=== PATIENT | male | born 1955 | race Caucasian/White ===

== ENCOUNTER 2016-02-22 11:38 | Emergency (ER) | payer OTHER, MEDICARE ==
[2016-02-22] MEDS ORDERED: ONDANSETRON 4MG/2ML VIAL (J2405) As Ordered ONE (13:09)
[2016-02-22 14:21] LABS: ALBUMIN 3.4 GM/DL (3.2-5.2); ALBUMIN/GLOBULIN RATIO 0.85 (1.00-1.93); ALKALINE PHOSPHATASE 103 U/L (45-117); ALT/SGPT 31 U/L (12-78); AMYLASE 122 U/L (25-115); ANION GAP 10 MEQ/L (8-16); AST/SGOT 17 U/L (15-37); BILIRUBIN,DIRECT < 0.1 MG/DL (0.0-0.2); BILIRUBIN,TOTAL 0.5 MG/DL (0.2-1.0); BLOOD UREA NITROGEN 32 MG/DL (7-18); CALCIUM LEVEL 9.2 MG/DL (8.8-10.2); CARBON DIOXIDE LEVEL 26 MEQ/L (21-32); CHLORIDE LEVEL 106 MEQ/L (98-107); CREATININE FOR GFR 2.26 MG/DL (0.70-1.30); GLOMERULAR FILTRATION RATE 31.6 (>49); GLUCOSE, FASTING 101 MG/DL (80-110); POTASSIUM SERUM 4.1 MEQ/L (3.5-5.1); SODIUM LEVEL 142 MEQ/L (136-145); TOTAL PROTEIN 7.4 GM/DL (6.4-8.2)
[2016-02-22 14:39] LABS: BASO % 0.4 % (0.0-1.0); EOS # 0.1 K/mm3 (0.0-0.50); EOS % 2.6 % (0.0-3.0); LARGE UNSTAINED CELL # 0.2 K/mm3 (0.0-0.4); LARGE UNSTAINED CELL % 5.2 % (0.0-4.0); LYMPH # 0.7 K/mm3 (1.5-4.5); MEAN CORPUSCULAR HEMOGLOBIN 28.3 pg (27.0-33.0); MEAN CORPUSCULAR VOLUME 83.2 fl (80.0-96.0); MONO # 0.3 K/mm3 (0.0-0.8); MONO % 8.4 % (0.0-5.0); NEUTROPHILS # 2.5 K/mm3 (1.8-7.7); NEUTROPHILS % 64.4 % (36.0-66.0); PLATELET COUNT, AUTOMATED 128 k/mm3 (150-450); RED CELL DISTRIBUTION WIDTH 12.3 % (11.5-14.5); WHITE BLOOD COUNT 3.9 K/mm3 (4.0-10.0)
--- NOTE | 2016-02-22 16:13 | EDDOCDS ---
Nurse's Notes [facility] Name: Pramod Duque Age: 60 yrs Sex: Male : 1955 Arrival Date: 02/22/2016 Time: 11:38 Bed I2 / M2 Private MD: Shayla Diagnosis: Chronic kidney disease (CKD);Generalized abdominal pain Presentation: 02/21 11:46 Presenting complaint: Patient states: "I've had a lot of gas for the past 4 days, my jc4 blood pressure is running high". Complains of feeling bloated for past few days but is feeling better today. Adult Sepsis Screening: The patient does not have new or worsening altered mentation. Patient's respiratory rate is less than 22. Systolic blood pressure is greater than 100. Patient has a qSOFA score of 0- Negative Sepsis Screen. Suicide/Homicide risk assessment- the patient denies having any suicidal and/or homicidal ideations and does not present with any other emotional, behavioral or mental health complaints. Status: Patient is not a environmental service aide or dependent. Transition of care: patient was not received from another setting of care. 11:46 Acuity: BLACK Level 3 4 11:46 Method Of Arrival: Walkin/Carried/Asstd jc4 Triage Assessment: 11:55 General: Appears in no apparent distress. Pain: Denies pain. Pt Declines HIV testing. jc4 Historical: - Allergies: no known allergies; - Home Meds: 1. atorvastatin 40 mg oral tab 1 tab once daily (Last dose: 02/21/2016) 2. amlodipine 5 mg Oral tab 1 tab nightly (Last dose: 02/21/2016) 3. Myfortic 180 mg oral TbEC 2 tab twice a day (Last dose: 02/22/2016 09:30) 4. Rapamune 1 mg oral tab 2 tabs twice a day (Last dose: 02/22/2016 09:30) 5. Prograf 1 mg Oral cap every 12 hours (Last dose: 02/22/2016 09:30) 6. Zantac 150 mg Oral cap 1 cap 2 times per day (Last dose: 02/22/2016 09:30) 7. atenolol 25 mg Oral tab 1 tab 2 times per day (Last dose: 02/22/2016 09:30) 8. Vitamin D Oral 1,000 unit daily (Last dose: 02/22/2016 09:30) 9. allopurinol 100 mg Oral tab 1.5 tabs once daily (Last dose: 02/22/2016 09:30) - PMHx: Hypertension; Gout; Hypercholesterolemia; Renal Failure w/o Dialysis; - PSHx: Kidney Transplant- Right; Ankle Fracture Repair, Right; Hernia repair; - Social history: Smoking status: Patient states was never smoker of tobacco. No barriers to communication noted, Speaks appropriately for age. - Family history: Not pertinent. - : The pt / caregiver states he / she is not on anticoagulants. Note Dr. Mcguire's office contacted regarding need for updated medication list Note Medication list obtained from Dr. Mcguire's office and reviewed with patient. - Exposure Risk Screening:: None identified. Screenin:37 Screening information is obtained from the patient. Fall risk: No risks identified. dls Assistance ADL's: requires no assistance with activities of daily living. Abuse/DV Screen: The patient / caregiver reports he/she is: not in a situation that causes fear, pain or injury. Nutritional screening: No deficits noted. Advance Directives: Currently, there is no health care proxy. There is no active DNR order. There is no living will. There is no Power of Workforce Analyst. home support is adequate. Assessment: 13:35 General: Appears in no apparent distress, well developed, well nourished, well groomed, dls Behavior is cooperative. Neurological: No deficits noted. EENT: No deficits noted. Cardiovascular: No deficits noted. Respiratory: Airway is patent Respiratory effort is even, unlabored, Respiratory pattern is regular, symmetrical, Breath sounds are clear bilaterally. GI: Reports bloating. : No deficits noted. Derm: No deficits noted. Musculoskeletal: No deficits noted. 14:15 General: Pt resting quietly on stretcher without c/o at bedside.. dls 16:07 General: . dls Vital Signs: 11:41 BP 154 / 96; Pulse 64; Resp 18 S; Temp 98.3(O); Pulse Ox 98% on R/A; Weight 91.63 kg gr2 (R); Height 5 ft. 10 in. (177.80 cm) (R); Pain 3/10; 14:16 BP 130 / 83; Pulse 57; Resp 16; Temp 99.3(TE); Pulse Ox 96% on R/A; Pain 0/10; sew 16:00 BP 144 / 88; Pulse 59; Resp 16; Temp 98.3(TE); Pulse Ox 96% on R/A; Pain 0/10; sew 11:41 Body Mass Index 28.98 (91.63 kg, 177.80 cm) gr2 Vitals: 11:41 Log In Time: February 22, 2016 at 11:41. gr2 13:09 Strep Screen is obtained and tested: Negative, a GATSNEG [facility] and sent. ED Course: 11:41 Patient visited by Jaz Santos. gr2 11:41 Shayla is Private Physician. gr2 11:41 Patient moved to Waiting gr2 11:42 Patient visited by Jaz Santos. gr2 11:42 Patient moved to Pre RCE gr2 11:48 Triage Initiated jc4 11:59 Patient moved to Triage 1 ar3 11:59 Patient moved to Pre RCE ms18 12:13 Patient moved to Triage 1 ar3 12:46 Lupis Flores PA-C is PHCP. ef1 12:46 Kathy Avina MD is Attending Physician. ef1 12:46 Patient visited by Lupis Flores PA-C. ef1 13:03 Patient moved to I2 / M2 jc4 13:04 -Influenza A&B Rapid Antigen - Nose Sent. jc4 13:05 Urinalysis Sent. jc4 13:05 Urine Culture Sent. jc4 13:09 Patient visited by Jigna Pinon PCA. bnb 13:18 Patient visited by Esther Jiménez. sew 13:18 EKG done. (by ED staff). Reviewed by Kathy Avina MD. sew 13:25 [facility] Payment Agreement was scanned into [employer] and attached to record. lg 13:34 Inserted saline lock: 20 gauge in right antecubital area The patient tolerated the dls procedure well. No procedures done that require assistance. 13:37 The patient / caregiver is instructed regarding the plan of care and ED course. Patient dls has correct armband on for positive identification. Placed in gown. Bed in low position. Call light in reach. 13:45 Troponin Sent. sew 13:45 Cardiac Injury Profile Sent. sew 13:45 Amylase Sent. sew 13:45 Basic Metabolic Profile Sent. sew 13:45 CBC with Diff Sent. sew 13:46 Patient visited by Esther Jiménez. sew 13:46 Lipase Sent. sew 13:46 Liver Profile Sent. sew 13:46 Labs drawn. (by ED staff). Sent per order to lab. sew 14:16 Patient visited by Esther Jiménez. sew 14:47 Patient visited by Lupis Flores PA-C. ef1 15:32 Patient visited by Lupis Flores PA-C. ef1 15:49 Patient visited by Lupis Flores PA-C. ef1 15:52 Chau Pitt is Referral Physician. ef1 16:01 Patient visited by Esther Jiménez. sew 16:08 Discontinued IV lock intact, bleeding controlled, pressure dressing applied, No dls redness/swelling at site. Administered Medications: 13:33 Drug: Ondansetron 4 mg [ondansetron HCl 2 mg/mL intravenous solution (2 mL)] Route: dls IVP; Site: right antecubital; Order Results: Lab Order: Amylase; SPEC'M 02/22/16 13:43 Test: AMYLASE; Value: 122; Range: 25-115; Abnormal: Above high normal; Units: U/L; Status: F Lab Order: Basic Metabolic Profile; SPEC'M 02/22/16 13:43 Test: GLUCOSE, FASTING; Value: 101; Range: 80-110; Units: MG/DL; Status: F Test: BLOOD UREA NITROGEN; Value: 32; Range: 7-18; Abnormal: Above high normal; Units: MG/DL; Status: F Test: CREATININE FOR GFR; Value: 2.26; Range: 0.70-1.30; Abnormal: Above high normal; Units: MG/DL; Status: F Test: GLOMERULAR FILTRATION RATE; Value: 31.6; Range: >49; Abnormal: Below low normal; Status: F Test: SODIUM LEVEL; Value: 142; Range: 136-145; Units: MEQ/L; Status: F Test: POTASSIUM SERUM; Value: 4.1; Range: 3.5-5.1; Units: MEQ/L; Status: F Test: CHLORIDE LEVEL; Value: 106; Range: 98-107; Units: MEQ/L; Status: F Test: CARBON DIOXIDE LEVEL; Value: 26; Range: 21-32; Units: MEQ/L; Status: F Test: ANION GAP; Value: 10; Range: 8-16; Units: MEQ/L; Status: F Test: CALCIUM LEVEL; Value: 9.2; Range: 8.8-10.2; Units: MG/DL; Status: F Test Note: ; Units are mL/min/1.73 m2 Chronic Kidney Disease Staging per NKF: Stage I & II GFR >=60 Normal to Mildly Decreased Stage III GFR 30-59 Moderately Decreased Stage IV GFR 15-29 Severely Decreased Stage V GFR <15 Very Little GFR Left ESRD GFR <15 on LIQUOR TESTER Lab Order: CBC with Diff; SPEC'M 02/22/16 13:43 Test: WHITE BLOOD COUNT; Value: 3.9; Range: 4.0-10.0; Abnormal: Below low normal; Units: K/mm3; Status: F Test: RED BLOOD COUNT; Value: 4.44; Range: 4.30-6.10; Units: M/mm3; Status: F Test: HEMOGLOBIN; Value: 12.6; Range: 14.0-18.0; Abnormal: Below low normal; Units: g/dl; Status: F Test: HEMATOCRIT; Value: 36.9; Range: 42.0-52.0; Abnormal: Below low normal; Units: %; Status: F Test: MEAN CORPUSCULAR VOLUME; Value: 83.2; Range: 80.0-96.0; Units: fl; Status: F Test: MEAN CORPUSCULAR HEMOGLOBIN; Value: 28.3; Range: 27.0-33.0; Units: pg; Status: F Test: MEAN CORPUSCULAR HGB CONC; Value: 34.0; Range: 32.0-36.5; Units: g/dl; Status: F Test: RED CELL DISTRIBUTION WIDTH; Value: 12.3; Range: 11.5-14.5; Units: %; Status: F Test: PLATELET COUNT, AUTOMATED; Value: 128; Range: 150-450; Abnormal: Below low normal; Units: k/mm3; Status: F Test: NEUTROPHILS %; Value: 64.4; Range: 36.0-66.0; Units: %; Status: F Test: LYMPH %; Value: 19.0; Range: 24.0-44.0; Abnormal: Below low normal; Units: %; Status: F Test: MONO %; Value: 8.4; Range: 0.0-5.0; Abnormal: Above high normal; Units: %; Status: F Test: EOS %; Value: 2.6; Range: 0.0-3.0; Units: %; Status: F Test: BASO %; Value: 0.4; Range: 0.0-1.0; Units: %; Status: F Test: LARGE UNSTAINED CELL %; Value: 5.2; Range: 0.0-4.0; Abnormal: Above high normal; Units: %; Status: F Test: NEUTROPHILS #; Value: 2.5; Range: 1.8-7.7; Units: K/mm3; Status: F Test: LYMPH #; Value: 0.7; Range: 1.5-4.5; Abnormal: Below low normal; Units: K/mm3; Status: F Test: MONO #; Value: 0.3; Range: 0.0-0.8; Units: K/mm3; Status: F Test: EOS #; Value: 0.1; Range: 0.0-0.50; Units: K/mm3; Status: F Test: BASO #; Value: 0.0; Range: 0.0-0.2; Units: K/mm3; Status: F Test: LARGE UNSTAINED CELL #; Value: 0.2; Range: 0.0-0.4; Units: K/mm3; Status: F Lab Order: Lipase; SPEC'M 02/22/16 13:43 Test: LIPASE; Value: 164; Range: 73-393; Units: U/L; Status: F Lab Order: Liver Profile; SPEC'M 02/22/16 13:43 Test: AST/SGOT; Value: 17; Range: 15-37; Units: U/L; Status: F Test: ALT/SGPT; Value: 31; Range: 12-78; Units: U/L; Status: F Test: ALKALINE PHOSPHATASE; Value: 103; Range: 45-117; Units: U/L; Status: F Test: BILIRUBIN,TOTAL; Value: 0.5; Range: 0.2-1.0; Units: MG/DL; Status: F Test: BILIRUBIN,DIRECT; Value: < 0.1; Range: 0.0-0.2; Units: MG/DL; Status: F Test: TOTAL PROTEIN; Value: 7.4; Range: 6.4-8.2; Units: GM/DL; Status: F Test: ALBUMIN; Value: 3.4; Range: 3.2-5.2; Units: GM/DL; Status: F Test: ALBUMIN/GLOBULIN RATIO; Value: 0.85; Range: 1.00-1.93; Abnormal: Below low normal; Status: F Lab Order: Urinalysis; SPEC'M 02/22/16 13:00 Test: APPEARANCE, URINE; Value: CLEAR; Range: CLEAR; Status: F Test: COLOR, URINE; Value: YELLOW; Range: YELLOW; Status: F Test: PH,URINE; Value: 5.0; Range: 5.0-9.0; Units: UNITS; Status: F Test: SPECIFIC GRAVITY URINE AUTO; Value: 1.012; Range: 1.002-1.035; Status: F Test: PROTEIN, URINE AUTO; Value: NEGATIVE; Range: NEGATIVE; Units: mg/dL; Status: F Test: GLUCOSE, URINE (UA) AUTO; Value: NEGATIVE; Range: NEGATIVE; Units: mg/dL; Status: F Test: KETONE, URINE AUTO; Value: NEGATIVE; Range: NEGATIVE; Units: mg/dL; Status: F Test: UROBILINOGEN, URINE AUTO; Value: 0.2; Range: 0.0-2.0; Units: mg/dL; Status: F Test: BILIRUBIN, URINE AUTO; Value: NEGATIVE; Range: NEGATIVE; Status: F Test: NITRITE, URINE AUTO; Value: NEGATIVE; Range: NEGATIVE; Status: F Test: LEUKOCYTE ESTERASE, URINE AUTO; Value: NEGATIVE; Range: NEGATIVE; Status: F Test: BLOOD, URINE BLOOD; Value: 1+; Range: NEGATIVE; Abnormal: Above high normal; Status: F Test: WBC, URINE AUTO; Value: 0; Range: 0-3; Units: /HPF; Status: F Test: RBC, URINE AUTO; Value: 0; Range: 0-3; Units: /HPF; Status: F Test: BACTERIA, URINE AUTO; Value: NEGATIVE; Range: NEGATIVE; Status: F Test: SQUAMOUS EPITHELIAL CELL UR AU; Value: 0; Range: 0-6; Units: /HPF; Status: F Test: MUCUS, URINE; Value: SMALL; Range: NEGATIVE; Status: F Test: HYALINE CAST, URINE AUTO; Value: 0; Range: 0-1; Units: /LPF; Status: F Lab Order: -Influenza A&B Rapid Antigen - Nose; SPEC'M 02/22/16 13:00 Test: INFLUENZA A RAPID SCR by ICA; Value: INFLUENZA A RESULTS NEGATIVE; Status: F Test: INFLUENZA A RAPID SCR by ICA; Value: Comments:; Status: F Test: INFLUENZA B RAPID SCR by ICA; Value: INFLUENZA B RESULTS NEGATIVE; Status: F Test Note: ; The Influenza test is a direct rapid immunoassay for the qualitative detection of Influenza viral antigen. Cell culture (Viral Culture) testing should be considered to confirm NEGATIVE results and to assist in detecting other viruses that can provide similar clinical symptoms. Please contact the lab within 24 hours ([phone]) if confirmatory testing is desired. Lab Order: Cardiac Injury Profile; SPEC'M 02/22/16 13:43 Test: CPK CREATINE PHOSPHOKINASE; Value: 88; Range: 39-308; Units: U/L; Status: F Test: CK-MB VALUE MASS; Value: 1.0; Range: 0.0-3.6; Units: NG/ML; Status: F Test: MB/CK RELATIVE INDEX; Value: 1.13; Range: < OR =4; Status: F Test Note: ; DIAGNOSIS CRITERIA MMB ng/ml Relative Index (RI) NON-AMI < or = 5 N/A [place] > 5 < or = 4 AMI > 5 > 4 Lab Order: Troponin; SPEC'M 02/22/16 13:43 Test: TROPONIN I; Value: < 0.02; Range: < 0.10; Units: NG/ML; Status: F Test Note: ; Troponin I Reference Interval for [employer] LOCI: 99th Percentile= 0.00-0.045 ng/ml Risk Stratification: <= 0.10 ng/ml Decreased Risk for Adverse Clinical Events. 0.10-1.50 ng/ml Increased Risk for Adverse Clinical Events. Evaluation of additional criterion and/or repeat testing in 2-6 hours is suggested to rule out myocardial damage. >= 1.50 ng/ml Indicative of Myocardial Injury. Outcome: 15:52 Discharge ordered by Provider. ef1 16:09 Discharge Assessment: Patient awake, alert and oriented x 3. No cognitive and/or dls functional deficits noted. Patient verbalized understanding of disposition instructions. patient administered narcotics - no. The following High Risk Discharge criteria are identified: None. Discharged to home ambulatory, with significant other. Condition: stable. Discharge instructions given to patient, Instructed on discharge instructions, follow up and referral plans. Demonstrated understanding of instructions, Pt was receptive of discharge instructions/ teaching. 16:10 No special radiology studies were completed. Property sent home with patient. dls 16:12 Patient left the ED. dls Signatures: Haven Stubbs, RN RN dls Kimberlee Horn, Reg Reg lg Lupis Flores, PA-C PA-C ef1 Sharron Tan, SECURITY DIRECTOR SECURITY DIRECTOR ar3 Lanny Florez, RN RN jc4 Esther Jiménez Gainslee gr2 Porsche Forrest RN RN [id number] Jigna Pinon, SECURITY DIRECTOR SECURITY DIRECTOR bnb MTDD
--- NOTE | 2016-02-22 16:14 | EDDOCDS ---
Physician Documentation [facility] Name: Pramod Duque Age: 60 yrs Sex: Male : 1955 Arrival Date: 02/22/2016 Time: 11:38 Bed I2 / M2 Private MD: Shayla Disposition: 02/22/16 15:52 Discharged to Home/Self Care. Impression: Chronic kidney disease (CKD), Generalized abdominal pain. - Condition is Stable. - Discharge Instructions: Abdominal Pain, Adult, Chronic Kidney Disease. - Prescriptions for Zofran 4 mg Oral Tablet - take 1 tablet by ORAL route 4 times per day As needed; 10 tablet. - Medication Reconciliation, Local Pharmacy Hours form. - Follow up: Chau Pitt; When: 1 - 2 days; Reason: Recheck today's complaints, Continuance of care. Follow up: Emergency Department; Reason: Worsening of conditions. - Problem is new. - Symptoms have improved. Historical: - Allergies: no known allergies; - Home Meds: 1. atorvastatin 40 mg oral tab 1 tab once daily (Last dose: 02/21/2016) 2. amlodipine 5 mg Oral tab 1 tab nightly (Last dose: 02/21/2016) 3. Myfortic 180 mg oral TbEC 2 tab twice a day (Last dose: 02/22/2016 09:30) 4. Rapamune 1 mg oral tab 2 tabs twice a day (Last dose: 02/22/2016 09:30) 5. Prograf 1 mg Oral cap every 12 hours (Last dose: 02/22/2016 09:30) 6. Zantac 150 mg Oral cap 1 cap 2 times per day (Last dose: 02/22/2016 09:30) 7. atenolol 25 mg Oral tab 1 tab 2 times per day (Last dose: 02/22/2016 09:30) 8. Vitamin D Oral 1,000 unit daily (Last dose: 02/22/2016 09:30) 9. allopurinol 100 mg Oral tab 1.5 tabs once daily (Last dose: 02/22/2016 09:30) - PMHx: Hypertension; Gout; Hypercholesterolemia; Renal Failure w/o Dialysis; - PSHx: Kidney Transplant- Right; Ankle Fracture Repair, Right; Hernia repair; - Social history: Smoking status: Patient states was never smoker of tobacco. No barriers to communication noted, Speaks appropriately for age. - Family history: Not pertinent. - : The pt / caregiver states he / she is not on anticoagulants. Note Dr. Mcguire's office contacted regarding need for updated medication list Note Medication list obtained from Dr. Mcguire's office and reviewed with patient. - Exposure Risk Screening:: None identified. Vital Signs: 02/21 11:41 BP 154 / 96; Pulse 64; Resp 18 S; Temp 98.3(O); Pulse Ox 98% on R/A; Weight 91.63 kg / gr2 202.01 lbs (R); Height 5 ft. 10 in. (177.80 cm) (R); Pain 3/10; 14:16 BP 130 / 83; Pulse 57; Resp 16; Temp 99.3(TE); Pulse Ox 96% on R/A; Pain 0/10; sew 16:00 BP 144 / 88; Pulse 59; Resp 16; Temp 98.3(TE); Pulse Ox 96% on R/A; Pain 0/10; sew 11:41 Body Mass Index 28.98 (91.63 kg, 177.80 cm) gr2 MDM: 12:53 IV Saline Lock ordered. ef1 12:53 Undress patient appropriately for examination ordered. ef1 12:53 Obtain sample by nasopharyngeal swab ordered. ef1 12:53 Ondansetron 4 mg IVP once ordered. ef1 12:54 Strep Screen, Nursing ordered. ef1 12:54 ECG WITH READING ER PHYS+CARDIAG ordered. EDMS 12:55 NOTHING BY MOUTH+DIET ordered. EDMS 12:55 Amylase Ordered. EDMS 12:55 Basic Metabolic Profile Ordered. EDMS 12:55 CBC with Diff Ordered. EDMS 12:55 Lipase Ordered. EDMS 12:55 Liver Profile Ordered. EDMS 12:55 Urinalysis Ordered. EDMS 12:55 Cardiac Injury Profile Ordered. EDMS 12:55 Troponin Ordered. EDMS 12:55 Urine Culture Ordered. EDMS 12:55 -Influenza A&B Rapid Antigen - Nose Ordered. EDMS 13:05 Financial registration complete. lg 13:22 GATS (NEGATIVE STREP SCREEN) Ordered. EDMS 13:25 [facility] Payment Agreement was scanned into [employer] and attached to record. lg 15:33 Amylase Reviewed. ef1 15:33 Basic Metabolic Profile Reviewed. ef1 15:33 CBC with Diff Reviewed. ef1 15:33 Liver Profile Reviewed. ef1 15:33 Urinalysis Reviewed. ef1 15:33 Lipase Reviewed. ef1 15:33 -Influenza A&B Rapid Antigen - Nose Reviewed. ef1 15:33 Cardiac Injury Profile Reviewed. ef1 15:33 Troponin Reviewed. ef1 Administered Medications: 13:33 Drug: Ondansetron 4 mg [ondansetron HCl 2 mg/mL intravenous solution (2 mL)] Route: dls IVP; Site: right antecubital; Signatures: Dispatcher [employer] EDMS Haven Stubbs RN RN dls Kimberlee Horn, Reg Reg lg Lupis Flores PA-C PAEvan ef1 Lanny Florez RN RN jc4 The chart was reviewed and I authenticate all verbal orders and agree with the evaluation and treatment provided.Attachments: 13:25 [facility] Payment Agreement lg MTDD
--- NOTE | 2016-02-23 08:05 | ECGEPIP ---
Stationary ECG Study [facility] - ED Test Date: 2016-02-22 Pat Name: ARRON TALBERT Department: Room: - Gender: M Visual Training Aide: maycol : 1955 Requested By: Lupis Flores PA-C Order Number: [id number] Reading MD: Esther Payne Measurements Intervals [place] Rate: 62 P: 62 [place]: 178 QRS: -43 QRSD: 118 T: 32 QT: 403 QTc: 411 Interpretive Statements SINUS RHYTHM WITH SINUS ARRHYTHMIA MARKED LEFT AXIS DEVIATION MODERATE INTRAVENTRICULAR CONDUCTION DELAY NO PRIOR FOR COMPARISON Electronically Signed On 02-23-2016 8:05:10 EST by Esther Payne
--- NOTE | 2016-02-24 17:13 | EDDOCDS ---
Physician Documentation [facility] Name: Pramod Duque Age: 60 yrs Sex: Male : 1955 Arrival Date: 02/22/2016 Time: 11:38 Bed I2 / M2 Private MD: Shayla Disposition: 02/22/16 15:52 Discharged to Home/Self Care. Impression: Chronic kidney disease (CKD), Generalized abdominal pain. - Condition is Stable. - Discharge Instructions: Abdominal Pain, Adult, Chronic Kidney Disease. - Prescriptions for Zofran 4 mg Oral Tablet - take 1 tablet by ORAL route 4 times per day As needed; 10 tablet. - Medication Reconciliation, Local Pharmacy Hours form. - Follow up: Chau Pitt; When: 1 - 2 days; Reason: Recheck today's complaints, Continuance of care. Follow up: Emergency Department; Reason: Worsening of conditions. - Problem is new. - Symptoms have improved. Historical: - Allergies: no known allergies; - Home Meds: 1. atorvastatin 40 mg oral tab 1 tab once daily (Last dose: 02/21/2016) 2. amlodipine 5 mg Oral tab 1 tab nightly (Last dose: 02/21/2016) 3. Myfortic 180 mg oral TbEC 2 tab twice a day (Last dose: 02/22/2016 09:30) 4. Rapamune 1 mg oral tab 2 tabs twice a day (Last dose: 02/22/2016 09:30) 5. Prograf 1 mg Oral cap every 12 hours (Last dose: 02/22/2016 09:30) 6. Zantac 150 mg Oral cap 1 cap 2 times per day (Last dose: 02/22/2016 09:30) 7. atenolol 25 mg Oral tab 1 tab 2 times per day (Last dose: 02/22/2016 09:30) 8. Vitamin D Oral 1,000 unit daily (Last dose: 02/22/2016 09:30) 9. allopurinol 100 mg Oral tab 1.5 tabs once daily (Last dose: 02/22/2016 09:30) - PMHx: Hypertension; Gout; Hypercholesterolemia; Renal Failure w/o Dialysis; - PSHx: Kidney Transplant- Right; Ankle Fracture Repair, Right; Hernia repair; - Social history: Smoking status: Patient states was never smoker of tobacco. No barriers to communication noted, Speaks appropriately for age. - Family history: Not pertinent. - : The pt / caregiver states he / she is not on anticoagulants. Note Dr. Mcguire's office contacted regarding need for updated medication list Note Medication list obtained from Dr. Mcguire's office and reviewed with patient. - Exposure Risk Screening:: None identified. Vital Signs: 02/21 11:41 BP 154 / 96; Pulse 64; Resp 18 S; Temp 98.3(O); Pulse Ox 98% on R/A; Weight 91.63 kg / gr2 202.01 lbs (R); Height 5 ft. 10 in. (177.80 cm) (R); Pain 3/10; 14:16 BP 130 / 83; Pulse 57; Resp 16; Temp 99.3(TE); Pulse Ox 96% on R/A; Pain 0/10; sew 16:00 BP 144 / 88; Pulse 59; Resp 16; Temp 98.3(TE); Pulse Ox 96% on R/A; Pain 0/10; sew 11:41 Body Mass Index 28.98 (91.63 kg, 177.80 cm) gr2 MDM: 12:53 IV Saline Lock ordered. ef1 12:53 Undress patient appropriately for examination ordered. ef1 12:53 Obtain sample by nasopharyngeal swab ordered. ef1 12:53 Ondansetron 4 mg IVP once ordered. ef1 12:54 Strep Screen, Nursing ordered. ef1 12:54 ECG WITH READING ER PHYS+CARDIAG ordered. EDMS 12:55 NOTHING BY MOUTH+DIET ordered. EDMS 12:55 Amylase Ordered. EDMS 12:55 Basic Metabolic Profile Ordered. EDMS 12:55 CBC with Diff Ordered. EDMS 12:55 Lipase Ordered. EDMS 12:55 Liver Profile Ordered. EDMS 12:55 Urinalysis Ordered. EDMS 12:55 Cardiac Injury Profile Ordered. EDMS 12:55 Troponin Ordered. EDMS 12:55 Urine Culture Ordered. EDMS 12:55 -Influenza A&B Rapid Antigen - Nose Ordered. EDMS 13:05 Financial registration complete. lg 13:22 GATS (NEGATIVE STREP SCREEN) Ordered. EDMS 13:25 [facility] Payment Agreement was scanned into [employer] and attached to record. lg 15:33 Amylase Reviewed. ef1 15:33 Basic Metabolic Profile Reviewed. ef1 15:33 CBC with Diff Reviewed. ef1 15:33 Liver Profile Reviewed. ef1 15:33 Urinalysis Reviewed. ef1 15:33 Lipase Reviewed. ef1 15:33 -Influenza A&B Rapid Antigen - Nose Reviewed. ef1 15:33 Cardiac Injury Profile Reviewed. ef1 15:33 Troponin Reviewed. ef1 02/22 09:10 T-Sheet-- Draft Copy was scanned into [employer] and attached to record. gb 09:10 ECG/EKG was scanned into [employer] and attached to record. gb Administered Medications: 02/21 13:33 Drug: Ondansetron 4 mg [ondansetron HCl 2 mg/mL intravenous solution (2 mL)] Route: dls IVP; Site: right antecubital; Signatures: Dispatcher [employer] EDHaven Rudd RN RN dls Farnaz Leon, Reg Reg gb Kimberlee Horn, Reg Reg lg Lupis Flores, PATitiC PATitiC ef1 Lanny Florez RN RN jc4 The chart was reviewed and I authenticate all verbal orders and agree with the evaluation and treatment provided.Attachments: 13:25 [facility] Payment Agreement lg 02/22 09:10 T-Sheet-- Draft Copy gb 09:10 ECG/EKG gb Chart Complete MTDD
--- NOTE | 2016-02-24 17:13 | EDDOCDS ---
Physician Documentation [facility] Name: Pramod Duque Age: 60 yrs Sex: Male : 1955 Arrival Date: 02/22/2016 Time: 11:38 Bed I2 / M2 Private MD: Shayla Disposition: 02/22/16 15:52 Discharged to Home/Self Care. Impression: Chronic kidney disease (CKD), Generalized abdominal pain. - Condition is Stable. - Discharge Instructions: Abdominal Pain, Adult, Chronic Kidney Disease. - Prescriptions for Zofran 4 mg Oral Tablet - take 1 tablet by ORAL route 4 times per day As needed; 10 tablet. - Medication Reconciliation, Local Pharmacy Hours form. - Follow up: Chau Pitt; When: 1 - 2 days; Reason: Recheck today's complaints, Continuance of care. Follow up: Emergency Department; Reason: Worsening of conditions. - Problem is new. - Symptoms have improved. Historical: - Allergies: no known allergies; - Home Meds: 1. atorvastatin 40 mg oral tab 1 tab once daily (Last dose: 02/21/2016) 2. amlodipine 5 mg Oral tab 1 tab nightly (Last dose: 02/21/2016) 3. Myfortic 180 mg oral TbEC 2 tab twice a day (Last dose: 02/22/2016 09:30) 4. Rapamune 1 mg oral tab 2 tabs twice a day (Last dose: 02/22/2016 09:30) 5. Prograf 1 mg Oral cap every 12 hours (Last dose: 02/22/2016 09:30) 6. Zantac 150 mg Oral cap 1 cap 2 times per day (Last dose: 02/22/2016 09:30) 7. atenolol 25 mg Oral tab 1 tab 2 times per day (Last dose: 02/22/2016 09:30) 8. Vitamin D Oral 1,000 unit daily (Last dose: 02/22/2016 09:30) 9. allopurinol 100 mg Oral tab 1.5 tabs once daily (Last dose: 02/22/2016 09:30) - PMHx: Hypertension; Gout; Hypercholesterolemia; Renal Failure w/o Dialysis; - PSHx: Kidney Transplant- Right; Ankle Fracture Repair, Right; Hernia repair; - Social history: Smoking status: Patient states was never smoker of tobacco. No barriers to communication noted, Speaks appropriately for age. - Family history: Not pertinent. - : The pt / caregiver states he / she is not on anticoagulants. Note Dr. Mcguire's office contacted regarding need for updated medication list Note Medication list obtained from Dr. Mcguire's office and reviewed with patient. - Exposure Risk Screening:: None identified. Vital Signs: 02/21 11:41 BP 154 / 96; Pulse 64; Resp 18 S; Temp 98.3(O); Pulse Ox 98% on R/A; Weight 91.63 kg / gr2 202.01 lbs (R); Height 5 ft. 10 in. (177.80 cm) (R); Pain 3/10; 14:16 BP 130 / 83; Pulse 57; Resp 16; Temp 99.3(TE); Pulse Ox 96% on R/A; Pain 0/10; sew 16:00 BP 144 / 88; Pulse 59; Resp 16; Temp 98.3(TE); Pulse Ox 96% on R/A; Pain 0/10; sew 11:41 Body Mass Index 28.98 (91.63 kg, 177.80 cm) gr2 MDM: 12:53 IV Saline Lock ordered. ef1 12:53 Undress patient appropriately for examination ordered. ef1 12:53 Obtain sample by nasopharyngeal swab ordered. ef1 12:53 Ondansetron 4 mg IVP once ordered. ef1 12:54 Strep Screen, Nursing ordered. ef1 12:54 ECG WITH READING ER PHYS+CARDIAG ordered. EDMS 12:55 NOTHING BY MOUTH+DIET ordered. EDMS 12:55 Amylase Ordered. EDMS 12:55 Basic Metabolic Profile Ordered. EDMS 12:55 CBC with Diff Ordered. EDMS 12:55 Lipase Ordered. EDMS 12:55 Liver Profile Ordered. EDMS 12:55 Urinalysis Ordered. EDMS 12:55 Cardiac Injury Profile Ordered. EDMS 12:55 Troponin Ordered. EDMS 12:55 Urine Culture Ordered. EDMS 12:55 -Influenza A&B Rapid Antigen - Nose Ordered. EDMS 13:05 Financial registration complete. lg 13:22 GATS (NEGATIVE STREP SCREEN) Ordered. EDMS 13:25 [facility] Payment Agreement was scanned into [employer] and attached to record. lg 15:33 Amylase Reviewed. ef1 15:33 Basic Metabolic Profile Reviewed. ef1 15:33 CBC with Diff Reviewed. ef1 15:33 Liver Profile Reviewed. ef1 15:33 Urinalysis Reviewed. ef1 15:33 Lipase Reviewed. ef1 15:33 -Influenza A&B Rapid Antigen - Nose Reviewed. ef1 15:33 Cardiac Injury Profile Reviewed. ef1 15:33 Troponin Reviewed. ef1 02/22 09:10 T-Sheet-- Draft Copy was scanned into [employer] and attached to record. gb 09:10 ECG/EKG was scanned into [employer] and attached to record. gb Administered Medications: 02/21 13:33 Drug: Ondansetron 4 mg [ondansetron HCl 2 mg/mL intravenous solution (2 mL)] Route: dls IVP; Site: right antecubital; Signatures: Dispatcher [employer] EDHaven Rudd RN RN dls Farnaz Loen, Reg Reg gb Kimberlee Horn, Reg Reg lg Lupis Flores, PATitiC PATitiC ef1 Lanny Florez RN RN jc4 The chart was reviewed and I authenticate all verbal orders and agree with the evaluation and treatment provided.Attachments: 13:25 [facility] Payment Agreement lg 02/22 09:10 T-Sheet-- Draft Copy gb 09:10 ECG/EKG gb Chart Complete MTDD
--- NOTE | 2016-02-24 17:13 | EDDOCDS ---
Nurse's Notes [facility] Name: Pramod Talbert Age: 60 yrs Sex: Male : 1955 Arrival Date: 02/22/2016 Time: 11:38 Bed I2 / M2 Private MD: Shayla Diagnosis: Chronic kidney disease (CKD);Generalized abdominal pain Presentation: 02/21 11:46 Presenting complaint: Patient states: "I've had a lot of gas for the past 4 days, my jc4 blood pressure is running high". Complains of feeling bloated for past few days but is feeling better today. Adult Sepsis Screening: The patient does not have new or worsening altered mentation. Patient's respiratory rate is less than 22. Systolic blood pressure is greater than 100. Patient has a qSOFA score of 0- Negative Sepsis Screen. Suicide/Homicide risk assessment- the patient denies having any suicidal and/or homicidal ideations and does not present with any other emotional, behavioral or mental health complaints. Status: Patient is not a housetrailer servicer or dependent. Transition of care: patient was not received from another setting of care. 11:46 Acuity: BLACK Level 3 4 11:46 Method Of Arrival: Walkin/Carried/Asstd jc4 Triage Assessment: 11:55 General: Appears in no apparent distress. Pain: Denies pain. Pt Declines HIV testing. jc4 Historical: - Allergies: no known allergies; - Home Meds: 1. atorvastatin 40 mg oral tab 1 tab once daily (Last dose: 02/21/2016) 2. amlodipine 5 mg Oral tab 1 tab nightly (Last dose: 02/21/2016) 3. Myfortic 180 mg oral TbEC 2 tab twice a day (Last dose: 02/22/2016 09:30) 4. Rapamune 1 mg oral tab 2 tabs twice a day (Last dose: 02/22/2016 09:30) 5. Prograf 1 mg Oral cap every 12 hours (Last dose: 02/22/2016 09:30) 6. Zantac 150 mg Oral cap 1 cap 2 times per day (Last dose: 02/22/2016 09:30) 7. atenolol 25 mg Oral tab 1 tab 2 times per day (Last dose: 02/22/2016 09:30) 8. Vitamin D Oral 1,000 unit daily (Last dose: 02/22/2016 09:30) 9. allopurinol 100 mg Oral tab 1.5 tabs once daily (Last dose: 02/22/2016 09:30) - PMHx: Hypertension; Gout; Hypercholesterolemia; Renal Failure w/o Dialysis; - PSHx: Kidney Transplant- Right; Ankle Fracture Repair, Right; Hernia repair; - Social history: Smoking status: Patient states was never smoker of tobacco. No barriers to communication noted, Speaks appropriately for age. - Family history: Not pertinent. - : The pt / caregiver states he / she is not on anticoagulants. Note Dr. Mcguire's office contacted regarding need for updated medication list Note Medication list obtained from Dr. Mcguire's office and reviewed with patient. - Exposure Risk Screening:: None identified. Screenin:37 Screening information is obtained from the patient. Fall risk: No risks identified. dls Assistance ADL's: requires no assistance with activities of daily living. Abuse/DV Screen: The patient / caregiver reports he/she is: not in a situation that causes fear, pain or injury. Nutritional screening: No deficits noted. Advance Directives: Currently, there is no health care proxy. There is no active DNR order. There is no living will. There is no Power of Product Test Specialist. home support is adequate. Assessment: 13:35 General: Appears in no apparent distress, well developed, well nourished, well groomed, dls Behavior is cooperative. Neurological: No deficits noted. EENT: No deficits noted. Cardiovascular: No deficits noted. Respiratory: Airway is patent Respiratory effort is even, unlabored, Respiratory pattern is regular, symmetrical, Breath sounds are clear bilaterally. GI: Reports bloating. : No deficits noted. Derm: No deficits noted. Musculoskeletal: No deficits noted. 14:15 General: Pt resting quietly on stretcher without c/o at bedside.. dls 16:07 General: . dls Vital Signs: 11:41 BP 154 / 96; Pulse 64; Resp 18 S; Temp 98.3(O); Pulse Ox 98% on R/A; Weight 91.63 kg gr2 (R); Height 5 ft. 10 in. (177.80 cm) (R); Pain 3/10; 14:16 BP 130 / 83; Pulse 57; Resp 16; Temp 99.3(TE); Pulse Ox 96% on R/A; Pain 0/10; sew 16:00 BP 144 / 88; Pulse 59; Resp 16; Temp 98.3(TE); Pulse Ox 96% on R/A; Pain 0/10; sew 11:41 Body Mass Index 28.98 (91.63 kg, 177.80 cm) gr2 Vitals: 11:41 Log In Time: February 22, 2016 at 11:41. gr2 13:09 Strep Screen is obtained and tested: Negative, [facility] ED Course: 11:41 Patient visited by Jaz Santos. gr2 11:41 Shayla is Private Physician. gr2 11:41 Patient moved to Waiting gr2 11:42 Patient visited by Jaz Santos. gr2 11:42 Patient moved to Pre RCE gr2 11:48 Triage Initiated jc4 11:59 Patient moved to Triage 1 ar3 11:59 Patient moved to Pre RCE ms18 12:13 Patient moved to Triage 1 ar3 12:46 Lupis Flores PA-C is PHCP. ef1 12:46 Kathy Avina MD is Attending Physician. ef1 12:46 Patient visited by Lupis Flores PA-C. ef1 13:03 Patient moved to I2 / M2 jc4 13:04 -Influenza A&B Rapid Antigen - Nose Sent. jc4 13:05 Urinalysis Sent. jc4 13:05 Urine Culture Sent. jc4 13:09 Patient visited by Jigna Pinon PCA. bnb 13:18 Patient visited by Esther Jiménez. sew 13:18 EKG done. (by ED staff). Reviewed by Kathy Avina MD. sew 13:25 [facility] Payment Agreement was scanned into [employer] and attached to record. lg 13:34 Inserted saline lock: 20 gauge in right antecubital area The patient tolerated the dls procedure well. No procedures done that require assistance. 13:37 The patient / caregiver is instructed regarding the plan of care and ED course. Patient dls has correct armband on for positive identification. Placed in gown. Bed in low position. Call light in reach. 13:45 Troponin Sent. sew 13:45 Cardiac Injury Profile Sent. sew 13:45 Amylase Sent. sew 13:45 Basic Metabolic Profile Sent. sew 13:45 CBC with Diff Sent. sew 13:46 Patient visited by Esther Jiménez. sew 13:46 Lipase Sent. sew 13:46 Liver Profile Sent. sew 13:46 Labs drawn. (by ED staff). Sent per order to lab. sew 14:16 Patient visited by Esther Jiménez. sew 14:47 Patient visited by Lupis Flores PA-C. ef1 15:32 Patient visited by Lupis Flores PA-C. ef1 15:49 Patient visited by Lupis Flores PA-C. ef1 15:52 Chau Pitt is Referral Physician. ef1 16:01 Patient visited by Esther Jiménez. sew 16:08 Discontinued IV lock intact, bleeding controlled, pressure dressing applied, No dls redness/swelling at site. 02/22 08:09 EKG-ADULT Returned. EDMS 09:10 T-Sheet-- Draft Copy was scanned into [employer] and attached to record. gb 09:10 ECG/EKG was scanned into [employer] and attached to record. gb Administered Medications: 02/21 13:33 Drug: Ondansetron 4 mg [ondansetron HCl 2 mg/mL intravenous solution (2 mL)] Route: dls IVP; Site: right antecubital; Order Results: Lab Order: Amylase; SPEC'M 02/22/16 13:43 Test: AMYLASE; Value: 122; Range: 25-115; Abnormal: Above high normal; Units: U/L; Status: F Lab Order: Basic Metabolic Profile; SPEC'M 02/22/16 13:43 Test: GLUCOSE, FASTING; Value: 101; Range: 80-110; Units: MG/DL; Status: F Test: BLOOD UREA NITROGEN; Value: 32; Range: 7-18; Abnormal: Above high normal; Units: MG/DL; Status: F Test: CREATININE FOR GFR; Value: 2.26; Range: 0.70-1.30; Abnormal: Above high normal; Units: MG/DL; Status: F Test: GLOMERULAR FILTRATION RATE; Value: 31.6; Range: >49; Abnormal: Below low normal; Status: F Test: SODIUM LEVEL; Value: 142; Range: 136-145; Units: MEQ/L; Status: F Test: POTASSIUM SERUM; Value: 4.1; Range: 3.5-5.1; Units: MEQ/L; Status: F Test: CHLORIDE LEVEL; Value: 106; Range: 98-107; Units: MEQ/L; Status: F Test: CARBON DIOXIDE LEVEL; Value: 26; Range: 21-32; Units: MEQ/L; Status: F Test: ANION GAP; Value: 10; Range: 8-16; Units: MEQ/L; Status: F Test: CALCIUM LEVEL; Value: 9.2; Range: 8.8-10.2; Units: MG/DL; Status: F Test Note: ; Units are mL/min/1.73 m2 Chronic Kidney Disease Staging per NKF: Stage I & II GFR >=60 Normal to Mildly Decreased Stage III GFR 30-59 Moderately Decreased Stage IV GFR 15-29 Severely Decreased Stage V GFR <15 Very Little GFR Left ESRD GFR <15 on SOFT SHOE DANCER Lab Order: CBC with Diff; SPEC'M 02/22/16 13:43 Test: WHITE BLOOD COUNT; Value: 3.9; Range: 4.0-10.0; Abnormal: Below low normal; Units: K/mm3; Status: F Test: RED BLOOD COUNT; Value: 4.44; Range: 4.30-6.10; Units: M/mm3; Status: F Test: HEMOGLOBIN; Value: 12.6; Range: 14.0-18.0; Abnormal: Below low normal; Units: g/dl; Status: F Test: HEMATOCRIT; Value: 36.9; Range: 42.0-52.0; Abnormal: Below low normal; Units: %; Status: F Test: MEAN CORPUSCULAR VOLUME; Value: 83.2; Range: 80.0-96.0; Units: fl; Status: F Test: MEAN CORPUSCULAR HEMOGLOBIN; Value: 28.3; Range: 27.0-33.0; Units: pg; Status: F Test: MEAN CORPUSCULAR HGB CONC; Value: 34.0; Range: 32.0-36.5; Units: g/dl; Status: F Test: RED CELL DISTRIBUTION WIDTH; Value: 12.3; Range: 11.5-14.5; Units: %; Status: F Test: PLATELET COUNT, AUTOMATED; Value: 128; Range: 150-450; Abnormal: Below low normal; Units: k/mm3; Status: F Test: NEUTROPHILS %; Value: 64.4; Range: 36.0-66.0; Units: %; Status: F Test: LYMPH %; Value: 19.0; Range: 24.0-44.0; Abnormal: Below low normal; Units: %; Status: F Test: MONO %; Value: 8.4; Range: 0.0-5.0; Abnormal: Above high normal; Units: %; Status: F Test: EOS %; Value: 2.6; Range: 0.0-3.0; Units: %; Status: F Test: BASO %; Value: 0.4; Range: 0.0-1.0; Units: %; Status: F Test: LARGE UNSTAINED CELL %; Value: 5.2; Range: 0.0-4.0; Abnormal: Above high normal; Units: %; Status: F Test: NEUTROPHILS #; Value: 2.5; Range: 1.8-7.7; Units: K/mm3; Status: F Test: LYMPH #; Value: 0.7; Range: 1.5-4.5; Abnormal: Below low normal; Units: K/mm3; Status: F Test: MONO #; Value: 0.3; Range: 0.0-0.8; Units: K/mm3; Status: F Test: EOS #; Value: 0.1; Range: 0.0-0.50; Units: K/mm3; Status: F Test: BASO #; Value: 0.0; Range: 0.0-0.2; Units: K/mm3; Status: F Test: LARGE UNSTAINED CELL #; Value: 0.2; Range: 0.0-0.4; Units: K/mm3; Status: F Lab Order: Lipase; SPEC'M 02/22/16 13:43 Test: LIPASE; Value: 164; Range: 73-393; Units: U/L; Status: F Lab Order: Liver Profile; SPEC'M 02/22/16 13:43 Test: AST/SGOT; Value: 17; Range: 15-37; Units: U/L; Status: F Test: ALT/SGPT; Value: 31; Range: 12-78; Units: U/L; Status: F Test: ALKALINE PHOSPHATASE; Value: 103; Range: 45-117; Units: U/L; Status: F Test: BILIRUBIN,TOTAL; Value: 0.5; Range: 0.2-1.0; Units: MG/DL; Status: F Test: BILIRUBIN,DIRECT; Value: < 0.1; Range: 0.0-0.2; Units: MG/DL; Status: F Test: TOTAL PROTEIN; Value: 7.4; Range: 6.4-8.2; Units: GM/DL; Status: F Test: ALBUMIN; Value: 3.4; Range: 3.2-5.2; Units: GM/DL; Status: F Test: ALBUMIN/GLOBULIN RATIO; Value: 0.85; Range: 1.00-1.93; Abnormal: Below low normal; Status: F Lab Order: Urinalysis; SPEC'M 02/22/16 13:00 Test: APPEARANCE, URINE; Value: CLEAR; Range: CLEAR; Status: F Test: COLOR, URINE; Value: YELLOW; Range: YELLOW; Status: F Test: PH,URINE; Value: 5.0; Range: 5.0-9.0; Units: UNITS; Status: F Test: SPECIFIC GRAVITY URINE AUTO; Value: 1.012; Range: 1.002-1.035; Status: F Test: PROTEIN, URINE AUTO; Value: NEGATIVE; Range: NEGATIVE; Units: mg/dL; Status: F Test: GLUCOSE, URINE (UA) AUTO; Value: NEGATIVE; Range: NEGATIVE; Units: mg/dL; Status: F Test: KETONE, URINE AUTO; Value: NEGATIVE; Range: NEGATIVE; Units: mg/dL; Status: F Test: UROBILINOGEN, URINE AUTO; Value: 0.2; Range: 0.0-2.0; Units: mg/dL; Status: F Test: BILIRUBIN, URINE AUTO; Value: NEGATIVE; Range: NEGATIVE; Status: F Test: NITRITE, URINE AUTO; Value: NEGATIVE; Range: NEGATIVE; Status: F Test: LEUKOCYTE ESTERASE, URINE AUTO; Value: NEGATIVE; Range: NEGATIVE; Status: F Test: BLOOD, URINE BLOOD; Value: 1+; Range: NEGATIVE; Abnormal: Above high normal; Status: F Test: WBC, URINE AUTO; Value: 0; Range: 0-3; Units: /HPF; Status: F Test: RBC, URINE AUTO; Value: 0; Range: 0-3; Units: /HPF; Status: F Test: BACTERIA, URINE AUTO; Value: NEGATIVE; Range: NEGATIVE; Status: F Test: SQUAMOUS EPITHELIAL CELL UR AU; Value: 0; Range: 0-6; Units: /HPF; Status: F Test: MUCUS, URINE; Value: SMALL; Range: NEGATIVE; Status: F Test: HYALINE CAST, URINE AUTO; Value: 0; Range: 0-1; Units: /LPF; Status: F Lab Order: Urine Culture; SPEC'M 02/22/16 13:00 Test: URINE CULTURE; Value: URINE CULTURE RESULT NO GROWTH; Status: F Lab Order: -Influenza A&B Rapid Antigen - Nose; SPEC'M 02/22/16 13:00 Test: INFLUENZA A RAPID SCR by ICA; Value: INFLUENZA A RESULTS NEGATIVE; Status: F Test: INFLUENZA A RAPID SCR by ICA; Value: Comments:; Status: F Test: INFLUENZA B RAPID SCR by ICA; Value: INFLUENZA B RESULTS NEGATIVE; Status: F Test Note: ; The Influenza test is a direct rapid immunoassay for the qualitative detection of Influenza viral antigen. Cell culture (Viral Culture) testing should be considered to confirm NEGATIVE results and to assist in detecting other viruses that can provide similar clinical symptoms. Please contact the lab within 24 hours ([phone]) if confirmatory testing is desired. Lab Order: Cardiac Injury Profile; SPEC'M 02/22/16 13:43 Test: CPK CREATINE PHOSPHOKINASE; Value: 88; Range: 39-308; Units: U/L; Status: F Test: CK-MB VALUE MASS; Value: 1.0; Range: 0.0-3.6; Units: NG/ML; Status: F Test: MB/CK RELATIVE INDEX; Value: 1.13; Range: < OR =4; Status: F Test Note: ; DIAGNOSIS CRITERIA MMB ng/ml Relative Index (RI) NON-AMI < or = 5 N/A [place] > 5 < or = 4 AMI > 5 > 4 Lab Order: Troponin; SPEC'M 02/22/16 13:43 Test: TROPONIN I; Value: < 0.02; Range: < 0.10; Units: NG/ML; Status: F Test Note: ; Troponin I Reference Interval for Siemens [place] LOCI: 99th Percentile= 0.00-0.045 ng/ml Risk Stratification: <= 0.10 ng/ml Decreased Risk for Adverse Clinical Events. 0.10-1.50 ng/ml Increased Risk for Adverse Clinical Events. Evaluation of additional criterion and/or repeat testing in 2-6 hours is suggested to rule out myocardial damage. >= 1.50 ng/ml Indicative of Myocardial Injury. 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 ef1 16:09 Discharge Assessment: Patient awake, alert and oriented x 3. No cognitive and/or dls functional deficits noted. Patient verbalized understanding of disposition instructions. patient administered narcotics - no. The following High Risk Discharge criteria are identified: None. Discharged to home ambulatory, with significant other. Condition: stable. Discharge instructions given to patient, Instructed on discharge instructions, follow up and referral plans. Demonstrated understanding of instructions, Pt was receptive of discharge instructions/ teaching. 16:10 No special radiology studies were completed. Property sent home with patient. dls 16:12 Patient left the ED. dls Signatures: Dispatcher [facility] Choi RN RN Farnaz Mosquera, Alicia StevensiLee, Reg Reg lg Lupis Flores, PA-C PA-C ef1 Sharron Tan, CRAPS MANAGER CRAPS MANAGER ar3 Lanny Florez, RN RN jc4 Esther Jiménez Gainslee gr2 Porsche Forrest RN RN [id number] Kathrin, Jigna, CRAPS MANAGER CRAPS MANAGER bnb Chart Complete MTDD
== END 2016-02-22 16:12 | disposition home or self-care (01) ==
LOC: M ED 11:38
DX: R10.84 Generalized abdominal pain (principal); N18.9 Chronic kidney disease, unspecified; I12.9 Hypertensive chronic kidney disease with stage 1 through stage 4 chronic kidney disease, or unspecified chronic kidney disease; M10.9 Gout, unspecified; E78.00 Pure hypercholesterolemia, unspecified; Z94.0 Kidney transplant status; Z87.81 Personal history of (healed) traumatic fracture; Z79.899 Other long term (current) drug therapy
CPT/HCPCS: 36415; 80048; 80076; 81001; 82150; 82550; 82553; 83690; 85025; 87086; 87804; 87880; 93005; 96374; 99284; J2405

== ENCOUNTER → 2016-06-13 | Outpatient (REF) | payer OTHER, MEDICARE | LOC: M LAB REF 17:17 | PROVIDERS: ATTEND Internal Medicine Nephrology | DX: Z94.0 Kidney transplant status (principal); Z85.22 Personal history of malignant neoplasm of nasal cavities, middle ear, and accessory sinuses; E78.5 Hyperlipidemia, unspecified ==

== ENCOUNTER → 2016-09-16 | Outpatient (REF) | payer OTHER, MEDICARE | LOC: M LAB REF 13:30 | PROVIDERS: ATTEND Internal Medicine Nephrology | DX: Z94.0 Kidney transplant status (principal) ==

== ENCOUNTER → 2016-12-19 | Outpatient (REF) | payer OTHER, MEDICARE | LOC: M LAB REF 12:51 | PROVIDERS: ATTEND Internal Medicine Nephrology | DX: Z94.0 Kidney transplant status (principal) ==

== ENCOUNTER → 2017-04-13 | Outpatient (REF) | payer MEDICARE, OTHER ==
[2017-04-16 00:08] LABS: SIROLIMUS (RAPAMUNE) LABCORP 6.2 ng/mL (3.0-20.0)
[2017-04-16 00:08] LABS: FK 506 (TACROLIMUS) LABCORP 4.4 ng/mL (2.0-20.0)
== END ==
LOC: M LAB REF 13:25
DX: Z94.0 Kidney transplant status (principal)
CPT/HCPCS: 80197

== ENCOUNTER → 2017-07-07 | Outpatient (CLI) | payer MEDICARE, OTHER | LOC: M SMT 09:50 | DX: J90 Pleural effusion, not elsewhere classified (principal); Z94.0 Kidney transplant status | CPT/HCPCS: 80197 ==

== ENCOUNTER → 2017-07-07 | Outpatient (REF) | payer MEDICARE, OTHER ==
[2017-07-10 10:26] LABS: FK 506 (TACROLIMUS) LABCORP 4.5 ng/mL (2.0-20.0)
[2017-07-10 10:26] LABS: SIROLIMUS (RAPAMUNE) LABCORP 9.2 ng/mL (3.0-20.0)
== END ==
LOC: M LAB REF 14:08
DX: Z94.0 Kidney transplant status (principal)

== ENCOUNTER → 2017-12-26 | Outpatient (CLI) | payer MEDICARE, OTHER ==
[2017-12-29 00:06] LABS: SIROLIMUS (RAPAMUNE) LABCORP 8.6 ng/mL (3.0-20.0)
[2017-12-29 00:06] LABS: FK 506 (TACROLIMUS) LABCORP 4.5 ng/mL (2.0-20.0)
== END ==
LOC: M SMT 09:54
DX: Z94.0 Kidney transplant status (principal)
CPT/HCPCS: 80197

== ENCOUNTER → 2018-03-22 | Outpatient (REF) | payer MEDICARE, OTHER ==
[2018-03-25 00:06] LABS: SIROLIMUS (RAPAMUNE) LABCORP 6.1 ng/mL (3.0-20.0)
== END ==
LOC: M LAB REF 13:28
PROVIDERS: ATTEND Internal Medicine Nephrology
DX: Z94.0 Kidney transplant status (principal)

== ENCOUNTER → 2018-06-28 | Outpatient (REF) | payer MEDICARE, OTHER ==
[2018-07-01 08:06] LABS: SIROLIMUS (RAPAMUNE) LABCORP 8.8 ng/mL (3.0-20.0)
== END ==
LOC: M LAB REF 13:04
PROVIDERS: ATTEND Internal Medicine Nephrology
DX: Z94.0 Kidney transplant status (principal)

== ENCOUNTER → 2019-02-26 | Outpatient (REF) | payer MEDICARE, OTHER ==
[2019-02-26 13:27] LABS: CHOLESTEROL RISK RATIO 4.739 (<5)
[2019-02-28 14:07] LABS: SIROLIMUS (RAPAMUNE) LABCORP 6.8 ng/mL (3.0-20.0)
== END ==
LOC: M LAB REF 12:56
PROVIDERS: ATTEND Internal Medicine Nephrology
DX: Z94.0 Kidney transplant status (principal); E78.5 Hyperlipidemia, unspecified

== ENCOUNTER → 2019-05-31 | Outpatient (REF) | payer MEDICARE, OTHER ==
[2019-06-04 00:10] LABS: SIROLIMUS (RAPAMUNE) LABCORP 7.4 ng/mL (3.0-20.0)
== END ==
LOC: M LAB REF 16:36
PROVIDERS: ATTEND Internal Medicine Nephrology
DX: Z94.0 Kidney transplant status (principal)

== ENCOUNTER → 2019-07-24 | Outpatient (REF) | payer MEDICARE, OTHER | LOC: M LAB REF 17:51 | PROVIDERS: ATTEND Dermatology | DX: L82.1 Other seborrheic keratosis (principal); D23.30 Other benign neoplasm of skin of unspecified part of face ==

== ENCOUNTER 2019-09-04 10:25 | Day surgery (SDC) | payer MEDICARE, OTHER ==
[2019-09-04] MEDS ORDERED: propofoL 200 MG/20 ML VIAL As Ordered ONE (11:20)
[2019-09-04] MEDS ORDERED: LIDOCAINE 2% 100MG/5ML SDV (FOR ANES.) As Ordered ONE (11:20)
--- NOTE | 2019-10-16 11:26 | ROOR ---
Patient Name: Pramod Duque Procedure Date: 09/04/2019 11:10 AM Date of : 1955 Age: 64 Room: [facility] Gender: Male Note Status: Finalized Procedure: Total Colonoscopy to Cecum Indications: Screening for colorectal malignant neoplasm Providers: Ricardo Murry MD Referring MD: AGNES PALACIOS JR, MD Requesting Provider: Medicines: Monitored Anesthesia Care Complications: No immediate complications. Procedure: Pre-Anesthesia Assessment: - The heart rate, respiratory rate, oxygen saturations, blood pressure, adequacy of pulmonary ventilation, and response to care were monitored throughout the procedure. The Colonoscope was introduced through the anus and advanced to the cecum, identified by appendiceal orifice and ileocecal valve. The colonoscopy was performed without difficulty. The patient tolerated the procedure well. The quality of the bowel preparation was excellent. Findings: The perianal and digital rectal examinations were normal. Non-bleeding external internal hemorrhoids were found during retroflexion. The hemorrhoids were medium-sized and Grade II (internal hemorrhoids that prolapse but reduce spontaneously). No other significant abnormalities were identified in a careful examination of the remainder of the colon. The exam was otherwise without abnormality on direct and retroflexion views. Impression: - Non-bleeding external internal hemorrhoids. - The examination was otherwise normal on direct and retroflexion views. - No specimens collected. - The exam was otherwise normal to the cecum. Recommendation: - Patient has a contact number available for emergencies. The signs and symptoms of potential delayed complications were discussed with the patient. Return to normal activities tomorrow. Written discharge instructions were provided to the patient. - High fiber diet. - Discharge patient to home. - Continue present medications. - Repeat colonoscopy in 10 years for screening purposes. - Return to referring physician. - The findings and recommendations were discussed with the patient. Ricardo Murry MD Ricardo Murry MD 09/04/2019 11:27:34 AM Electronically signed by Ricardo Murry MD Number of Addenda: 0 Note Initiated On: 09/04/2019 11:10 AM Estimated Blood Loss: Estimated blood loss: none.
== END 2019-09-04 11:59 | disposition home or self-care (01) ==
LOC: M OPP 10:25
PROVIDERS: ATTEND Internal Medicine Gastroenterology
DX: Z12.11 Encounter for screening for malignant neoplasm of colon (principal); K64.1 Second degree hemorrhoids; I10 Essential (primary) hypertension; Z79.899 Other long term (current) drug therapy

== ENCOUNTER → 2019-09-09 | Outpatient (REF) | payer MEDICARE, OTHER ==
[2019-10-21 10:47] LABS: CHOLESTEROL RISK RATIO 5.078 (<5)
[2019-10-30 11:52] LABS: SIROLIMUS (RAPAMUNE) LABCORP SEE SEPARATE REPORT
== END ==
LOC: M LAB REF 08:14
PROVIDERS: ATTEND Internal Medicine Nephrology
DX: E78.5 Hyperlipidemia, unspecified (principal); Z94.0 Kidney transplant status

== ENCOUNTER → 2020-01-09 | Outpatient (REF) | payer MEDICARE, OTHER ==
[2020-01-15 20:09] LABS: SIROLIMUS (RAPAMUNE) LABCORP 10.6 ng/mL (3.0-20.0)
== END ==
LOC: M LAB REF 16:43
PROVIDERS: ATTEND Internal Medicine Nephrology
DX: Z94.0 Kidney transplant status (principal)

== ENCOUNTER → 2020-04-10 | Outpatient (REF) | payer MEDICARE, OTHER | LOC: M LAB REF 16:38 | PROVIDERS: ATTEND Internal Medicine Nephrology | DX: Z94.0 Kidney transplant status (principal) ==

== ENCOUNTER → 2020-07-16 | Outpatient (REF) | payer MEDICARE, OTHER | LOC: M LAB REF 16:41 | PROVIDERS: ATTEND Internal Medicine Nephrology | DX: Z94.0 Kidney transplant status (principal) ==

== ENCOUNTER → 2020-07-21 | Outpatient (CLI) | payer MEDICARE, OTHER ==
[2020-07-21 10:57] LABS: APPEARANCE, URINE CLEAR (CLEAR); BACTERIA, URINE AUTO NEGATIVE (NEGATIVE); BILIRUBIN, URINE AUTO NEGATIVE (NEGATIVE); BLOOD, URINE BLOOD 1+ (NEGATIVE); COLOR, URINE STRAW (YELLOW); GLUCOSE, URINE (UA) AUTO NEGATIVE (NEGATIVE); KETONE, URINE AUTO NEGATIVE (NEGATIVE); LEUKOCYTE ESTERASE, URINE AUTO NEGATIVE (NEGATIVE); NITRITE, URINE AUTO NEGATIVE (NEGATIVE); PROTEIN, URINE AUTO NEGATIVE (NEGATIVE); RBC, URINE AUTO 0 /HPF (0-3); SPECIFIC GRAVITY URINE AUTO 1.009 (1.002-1.035); SQUAMOUS EPITHELIAL CELL UR AU 0 /HPF (0-6); UROBILINOGEN, URINE AUTO 0.2 mg/dL (0.0-2.0); WBC, URINE AUTO 1 /HPF (0-3)
[2020-07-21 10:59] LABS: BASO % 0.3 % (0.0-1.0); HEMOGLOBIN 10.8 g/dl (13.5-17.5); LYMPH # 0.6 10^3/uL (1.5-5.0); LYMPH % 20.2 % (24.0-44.0); MEAN CORPUSCULAR HEMOGLOBIN 26.5 pg (27.0-33.0); MEAN CORPUSCULAR HGB CONC 30.9 g/dl (32.0-36.5); MEAN CORPUSCULAR VOLUME 85.8 fl (80.0-96.0); MONO # 0.5 10^3/uL (0.0-0.8); MONO % 15.2 % (2.0-8.0); NEUTROPHILS # 1.9 10^3/uL (1.5-8.5); NEUTROPHILS % 62.6 % (36.0-66.0); PLATELET COUNT, AUTOMATED 150 10^3/uL (150-450); RED BLOOD COUNT 4.08 10^6/uL (4.30-6.10)
[2020-07-21 11:12] LABS: CREATININE,RANDOM URINE 87.5 MG/DL; TOTAL PROTEIN,RANDOM URINE 28.9 MG/DL (0.0-12.0)
[2020-07-21 11:20] LABS: ALBUMIN 3.7 GM/DL (3.2-5.2); BILIRUBIN,DIRECT 0.2 MG/DL (0.0-0.2); BILIRUBIN,TOTAL 0.4 MG/DL (0.2-1.0); CALCIUM LEVEL 9.1 MG/DL (8.8-10.2); CREATININE FOR GFR 3.02 MG/DL (0.70-1.30); GLOMERULAR FILTRATION RATE 22.3 (>49); MAGNESIUM LEVEL 1.7 MG/DL (1.8-2.4); PHOSPHORUS LEVEL 3.9 MG/DL (2.5-4.9); POTASSIUM SERUM 4.4 MEQ/L (3.5-5.1); TOTAL PROTEIN 7.2 GM/DL (6.4-8.2)
== END ==
LOC: M LAB 09:45
PROVIDERS: ATTEND Pediatrics Pediatric Nephrology
DX: Z94.0 Kidney transplant status (principal)

== ENCOUNTER → 2020-08-24 | Outpatient (REF) | payer MEDICARE, OTHER ==
[2020-08-24 18:20] LABS: PERCENT SATURATION 28.4 % (19.7-50.0)
== END ==
LOC: M LAB REF 16:55
PROVIDERS: ATTEND Internal Medicine Nephrology
DX: Z94.0 Kidney transplant status (principal); D50.9 Iron deficiency anemia, unspecified

== ENCOUNTER → 2020-11-19 | Outpatient (CLI) | payer OTHER ==
[~2020-11-19] MED LIST: ALLO100T; AMLO1TAB24; ATEN25TA; ATOR80TA59; FERR325T19; HYDR-3910; SIRO1TAB3; SODI650T; TACR1CAP3
--- NOTE | 2020-11-19 09:47 | REP ---
INDICATION: PRE-OP TRANPLANT FOR CKD TECHNIQUE: Real time B-mode molina scale ultrasound examination using curved array transducer. FINDINGS: Liver, spleen, and pancreas are normal in contour, size, echogenicity, and overall appearance. No focal hepatic, splenic or pancreatic lesions are identified. Gallbladder is normal without gallstones, wall thickening, or pericholecystic fluid. No biliary ductal dilatation is appreciated and the common bile duct measures 4.8 mm in diameter. The bilateral [place] kidneys appear atrophic. The right kidney measures 5.8 x 3.7 x 3.7 cm and includes 7 mm lower pole cyst. Left kidney measures 7.1 x 4.8 x 3.8 cm and includes 2.6 cm lower pole cyst. There is a relatively normal appearing transplant kidney in the right lower quadrant which measures 13.1 x 5.4 x 6.7 cm without hydronephrosis or perinephric fluid. Abdominal aorta measures 2.5 cm maximal diameter. No ascites. IMPRESSION: 1. Atrophic [place] kidneys with relatively normal appearing transplant kidney in the right lower quadrant. 2. Otherwise normal complete abdominal ultrasound. <Electronically signed by Andrea Shirley > 11/19/20 [id number]
== END ==
LOC: M RAD 08:53
PROVIDERS: ATTEND Internal Medicine Nephrology
DX: Z01.818 Encounter for other preprocedural examination (principal)

== ENCOUNTER → 2020-11-20 | Outpatient (CLI) | payer MEDICARE, OTHER | LOC: M LABSMTC 09:12 | PROVIDERS: ATTEND Anesthesiology | DX: Z01.812 Encounter for preprocedural laboratory examination (principal); Z20.822 Contact with and (suspected) exposure to COVID-19 ==

== ENCOUNTER → 2020-11-20 | Outpatient (REF) | payer MEDICARE, OTHER ==
[2020-11-20 23:11] LABS: HEPATITIS B CORE ANTIBODY IGM NEGATIVE (NEGATIVE); HEPATITIS B SURFACE ANTIBODY NEGATIVE (POSITIVE); HEPATITIS B SURFACE ANTIGEN NEGATIVE (NEGATIVE); HEPATITIS C VIRUS ABY INDEX < 0.0 INDEX (<0.8)
== END ==
LOC: M LAB REF 17:18
PROVIDERS: ATTEND Internal Medicine Nephrology
DX: N18.6 End stage renal disease (principal); Z94.0 Kidney transplant status

== ENCOUNTER 2020-11-25 10:03 | Day surgery (SDC) | payer MEDICARE, OTHER ==
[~2020-11-25] VITALS: Ht 177.8 cm; Wt 88.4 kg
[~2020-11-25 10:03] MED LIST changes: +LIDOCAINE 1% MDV 20ML VIAL SQ PRN; +LR 1,000 ML IV ONE; +ceFAZolin SOD 2 GM in IV 1 EA IV ONE
--- OUTSIDE RECORDS SUMMARY | 2020-11-25 10:07 | CCD | Summary of Care ---
Author Author [facility] Address Unknown Phone Unavailable Care Team Providers Care Propulsion Generator Repairer Name Role Phone Shayla Martinez MD, Ernesto Gómez PCP Reason for Visit * Reason Comments Kidney Follow-up Encounter Details Care Team Description Date Type Department Gaurav Armstrong MD [address] [place] [id number] Kidney replaced by transplant (Primary D x); Elevated serum creatinine; Aftercare following organ transplant; Immunosuppressive management encounter following kidney transplant 10/20/2020 Telemedicine [facility] [address], [address] [place] [address] Allergies No Known Active Allergiesdocumented as of this encounter (statuses as of 10/20/2020) Medications End Date Status Medication Sig Dispensed Refills Start Date Active Vitamin D, Take 1,000 0 Cholecalciferol, 1000 Units by UNITS capsule mouth daily. Active atorvastatin (LIPITOR) 40 Take 1 tablet 90 tablet 3 MG tablet by mouth 7 every evening for 364 days. Additional Information Patient taking differently: 80 mg Oral Every evening, Reported on 08/19/2020 Active allopurinol (ZYLOPRIM) Take 150 mg 0 100 MG tablet by mouth Active losartan (COZAAR) 25 MG 0 tablet 7 Active Atenolol 25 MG Oral Take 1 tablet 180 tablet 3 02/07 Tablet by mouth Two 1 (TENORMIN)Indications: Times Daily Kidney replaced by transplant 02/27/2021 Active Mycophenolate Sodium 180 Take 2 360 tablet 3 0 MG Oral Tablet Delayed tablets by 1 Release (MYFORTIC) mouth Two Times Daily Active Sirolimus 1 MG Oral TAKE 2 180 tablet 3 Tablet TABLETS BY 1 (RAPAMUNE)Indications: MOUTH ONCE Kidney replaced by DAILY transplant Active amLODIPine Besylate 5 MG Take 5 mg by 0 Oral Tablet (NORVASC) mouth daily Active hydrALAZINE HCl 25 MG Take 25 mg by 0 Oral Tablet (APRESOLINE) mouth Twice Daily Active Tacrolimus 1 MG Oral Take 1 180 capsule 3 08/24 Capsule capsule by 1 (PROGRAF)Indications: mouth Two Kidney replaced by Times Daily transplant documented as of this encounter (statuses as of 10/20/2020) Active Problems Problem Noted Date Kidney replaced by transplant 08/19/2020 Abdominal pain 02/29/2016 Complication of transplanted kidney 02/28/2016 CKD (chronic kidney disease) 09/22/2014 Open right ankle fracture 1992 s/p ORIF 08/20/2014 Incisional hernia repair 08/20/2014 left arm A-V fistula creation 03/14/2014 08/20/2014 CKD (chronic kidney disease), 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 Hypertension Secondary hyperparathyroidism Gout Hyperlipidemia Hyperkalemia Erectile dysfunction documented as of this encounter (statuses as of 10/20/2020) Immunizations Name Administration Dates Next Due Influenza Quad IM Pres 11/20/2018 Free (0.5 mL dose) Influenza Quad IM with 12/23/2014 Pres (0.5 mL dose) documented as of this encounter Social History Date Tobacco Use Types Packs/Day Years Used Never Smoker Smokeless Tobacco: Never Used Comments Alcohol Use Standard Drinks/Week No 3 (1 standard drink = 0.6 o z pure alcohol) Sex Assigned at Date Recorded Not on file Date Recorded COVID-19 Exposure Response 10/20/2020 10:45 AM EDT In the last month, have you been in contact with No / Unsure someone who was confirmed or suspected to have Coronavirus / COVID-19? documented as of this encounter Last Filed Vital Signs Reading Time Taken Comments Vital Sign 122/82 10/20/2020 11:14 AM EDT Blood Pressure - - Pulse - - Temperature - - Respiratory Rate - - Oxygen Saturation - - Inhaled Oxygen Concentration 88.5 kg (195 lb) 10/20/2020 11:14 AM EDT Weight - - Height 27.98 08/19/2020 8:00 AM EDT Body Mass Index documented in this encounter Progress Notes * Gaurav Armstrong MD - 10/20/2020 11:00 AM EDT HPI: Date and type of Transplant: 09/23/2014 Donor information: KDPI 67% Etiology of ESRD: GN Nephrology: Sweetie Baseline Creatinine: about 2 CMV +/+ Induction: Thymo x 2 (3mg total), Simulect, steroid withdrawal Target levels: tacro - 2 to 4, sirolimus 6-8 Post-operative complications: Slow to function graft Stent: removed 11/07/2014 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 Stopped MMF to control BK. Creat continues to risk now at 3.7 (eGFR 16). To have transplant eval next week. Notes some metallic taste in the mouth. Gets labs mo nthly and sees Dr. Pitt. Off losartan, started on hydralazine. Increased bicarb, started iron Yearly follow up via tele-med. This is a telephone visit at patients preference as he does not own a smart phone. Active at home during pandemic. No recent ill ness. The history was reviewed and updated. Generally doing well. Tolerating med ications and compliant with medications, no ill effects reported. Urine output remains good, no hematuria or dysuria. Good fluid intake. No chest pain or SOB. No fevers, chills, nausea, vomiting, or diarrhea. Allergies: Patient has no known allergies. MEDS: Current Outpatient Medications: allopurinol (ZYLOPRIM) 100 MG tablet, Take 150 mg by mouth, Disp: , Rfl: amLODIPine Besylate 5 MG Oral Tablet (NORVASC), Take 5 mg by mouth daily , Disp: , Rfl: Atenolol 25 MG Oral Tablet (TENORMIN), Take 1 tablet by mouth Two Times Daily, Disp: 180 tablet, Rfl: 3 atorvastatin (LIPITOR) 40 MG tablet, Take 1 tablet by mouth every evenin g for 364 days. (Patient taking differently: Take 80 mg by mouth every evening ) , Disp: 90 tablet, Rfl: 3 hydrALAZINE HCl 25 MG Oral Tablet (APRESOLINE), Take 25 mg by mouth Twic e Daily, Disp: , Rfl: losartan (COZAAR) 25 MG tablet, , Disp: , Rfl: Mycophenolate Sodium 180 MG Oral Tablet Delayed Release (MYFORTIC), Take 2 tablets by mouth Two Times Daily, Disp: 360 tablet, Rfl: 3 Sirolimus 1 MG Oral Tablet (RAPAMUNE), TAKE 2 TABLETS BY MOUTH ONCE KARINA Y, Disp: 180 tablet, Rfl: 3 Tacrolimus 1 MG Oral Capsule (PROGRAF), Take 1 capsule by mouth Two Time s Daily, Disp: 180 capsule, Rfl: 3 Vitamin D, Cholecalciferol, 1000 UNITS capsule, Take 1,000 Units by mout h daily., Disp: , Rfl: PMH: has a past medical history of CKD (chronic kidney disease), stage IV, Erec tile dysfunction, Gout, Hyperkalemia, Hyperlipidemia, Hypertension, and Secondar y hyperparathyroidism. PSH: has a past surgical history that includes Hernia repair; ORIF ankle fractu re (1991); and pr transplant,prep renal graft/arterial (Right, 09/23/2014). FH:SH: family history includes Cancer in his father and sister. and reports zahra t he has never smoked. He has never used smokeless tobacco. He reports that he d oes not drink alcohol and does not use drugs. Review of Systems : MOA note reviewed and confirmed. A complete ROS is otherwise negative Physical Exam: Vitals: 10/20/20 1114 BP: 122/82 Weight: 88.5 kg (195 lb) Labs pending from Dr. Pitt A/P: Major issues: 1. Immunosuppression s/p KTX / ESRD: Meds and available labs reviewed. Continue current immunosuppression off MMF for BK.. Target FK level= 2-4 with sirolimus 6-8 (combo about 10). Please fwd recent labs. Monitor BK viral load. 2. Fluids and Hemodynamics/BP: Target BP < 140/90 (Annals of Int Medicine, 09/25/12). Well controlled 3. Electrolytes/acidemia: Monitor Ca. Start vitamin D. Monitor PTH : rest per Dr Krystle Pitt 4. Hyperlipidemia - likely worsend by sirolimus, particularly TGs. Now on Lipito r. Monitored by PCP F/U with monthly labs with Dr. Pitt. Here in 1 year for transplant follow up Continues on listing workup for transplant, suspect it is imminent as GFR falls and early uremic symptoms. Plans on PD Booster #3 Moderna completed. TELEMED NOTE consent: The patient has provided informed consent to be evaluated by telemedicine before the start of the visit. This is a tele-medical visit. The patient was informed of the risks including security breach, technological failure, inability to per form a comprehensive physical exam which could delay or prevent an accurate diag nosis, and potential complications from treatment decisions rendered over a tele medical platform. The patient understands and consented to the use of tele-healt h services. Time spent on this evaluation today: 25 min including counseling and chart revie w MDM:Medical Decision Making determined to be complex due to multiple co-morbidit ies, renal dysfunction, renal transplant, and high risk medications and review o f laboratory and other studies entailing complex decision making. documented in this encounter Plan of Treatment Care Team Description Date Type Specialty Nathen Polo MD [address] [place] [address] [address] [place] [phone] 10/29/2020 Office Visit Transplant Health Maintenance Due Date Last Done Comments MMR Vaccines (1 of 1 - 08/13/1956 Standard series) Varicella Vaccines (1 of 08/13/1956 2 - 2-dose childhood series) Pneumococcal Vaccine: 65+ 1960 Years (1 of 4 - PCV13) Pneumococcal Vaccine: 1961 Pediatrics (0 to 5 Years) and At-Risk Patients (6 to 64 Years) (1 of 4 - PCV13) DTaP,Tdap,and Td Vaccines 1961 (1 - Tdap) Zoster Vaccines (1 of 2) 2004 Influenza Vaccine 11/06/2020 10/17/2019, 11/20/2018, 11/20/2018, Additional history exists Colon Cancer Screening 10 09/03/2029 09/04/2019, yrs 01/22/2014 Hepatitis C Screening (B. Completed 09/22/2014, [id number]) 12/12/2013 COVID-19 Vaccine Completed 09/29/2020, 04/07/2020, 03/10/2020 HIB Vaccines Aged Out No longer eligible based on patient's age to complete this topic Hepatitis A Vaccines Aged Out No longer eligibl e based on patient's age to complete this topic Hepatitis B Vaccines Aged Out No longer eligibl e based on patient's age to complete this topic IPV Vaccines Aged Out No longer eligible based on patient's age to complete this topic documented as of this encounter Results Not on filedocumented in this encounter Visit Diagnoses Diagnosis Kidney replaced by transplant - Primary Elevated serum creatinine Other nonspecific findings on examinati on of blood Aftercare following organ transplant Immunosuppressive management encounter following kidney transplant Encounter for long-term (current) use o f other medications documented in this encounter
--- OUTSIDE RECORDS SUMMARY | 2020-11-25 10:07 | CCD | Summary of Care ---
Author Author [facility] Address Unknown Phone Unavailable Care Team Providers Care Armored Vehicle Officer Name Role Phone Shayla Martinez MD, Ernesto Gómez PCP [phone] Reason for Visit * Reason Comments Kidney Evaluation Encounter Details Care Team Description Date Type Department Nathen Polo MD [address] [facility] 2nd [address] [place] [address] Pre-transplant evaluation for chronic ki dney disease (Primary Dx); Pre-transplant evaluation for kidney transplant 10/29/2020 Office Visit [facility] [place] [address], [address] [place] [address] Allergies No Known Active Allergiesdocumented as of this encounter (statuses as of 10/29/2020) Medications End Date Status Medication Sig Dispensed [...] 0 100 MG tablet by mouth Active Atenolol 25 MG Oral Take 1 tablet 180 tablet 3 02/07 Tablet by mouth Two 1 (TENORMIN)Indications: Times Daily Kidney replaced by transplant Active Sirolimus 1 MG Oral TAKE 2 [...] Two Kidney replaced by Times Daily transplant 10/29/2020 Discontinued (Discontinued b y another clinician) losartan (COZAAR) 25 MG 0 tablet 7 10/29/2020 Discontinued (Discontinued b y another clinician) Mycophenolate Sodium 180 Take 2 360 tablet 3 0 MG Oral Tablet Delayed tablets by 1 Release (MYFORTIC) mouth Two Times Daily documented as of this encounter (statuses as of 10/29/2020) Active Problems Problem Noted Date Kidney replaced [...] as of this encounter (statuses as of 10/29/2020) Immunizations Name Administration Dates Next Due Influenza [...] on file Date Recorded COVID-19 Exposure Response 10/29/2020 9:41 AM EDT In the last month, have you been in contact with No / Unsure someone who was confirmed or suspected to have Coronavirus / COVID-19? documented as of this encounter Last Filed Vital Signs Reading Time Taken Comments Vital Sign 135/69 10/29/2020 10:11 AM EDT Blood Pressure 77 10/29/2020 10:11 AM EDT Pulse 36.9 C (98.4 F) 10/29/2020 10:11 AM EDT Temperature - - Respiratory Rate 100% 10/29/2020 10:11 AM EDT Oxygen Saturation - - Inhaled Oxygen Concentration 91 kg (200 lb 9.9 oz) 10/29/2020 10:11 AM EDT Weight - - Height 28.79 08/19/2020 8:00 AM EDT Body Mass Index documented in this encounter Progress Notes * Nathen Polo MD - 10/29/2020 10:00 AM EDT PRE-TRANSPLANT EVALUATION Pramod Duque is a 65 y.o. male with stage V chronic kidney disease due to who i s seen in consultation at the request of to evaluate [facility] for renal transplantation. RENAL HISTORY: S/p DDKT in 2014 .Currently on tacrolimus and Sirolimus, not on Prednisone or MM F. Not on dialysis Still making urine 1-1.5 L Dx with HTN for 20 years and currently on medications Denies hx of DM , not on Insulin Denies any Heart failure of heart attack, no stroke . Denies any open wound. Currently feeling ok , currently retired , working around his garden and do fishing and all the active duties. Denies any hx of Asthma or COPD, never been smoker. PAST MEDICAL HISTORY: Past Medical History: Diagnosis Date CKD (chronic kidney disease), stage IV Erectile dysfunction Gout Hyperkalemia Hyperlipidemia Hypertension Secondary hyperparathyroidism PAST SURGICAL HISTORY: Past Surgical History: Procedure Laterality Date HERNIA REPAIR ORIF ANKLE FRACTURE 1991 [place] TRANSPLANT,PREP RENAL GRAFT/ARTERIAL Right 09/23/2014 Procedure: [facility]/LIVING DONOR RENAL ALLOGRAFT RECONSTRUCT PRIOR TO TR ANSPLANT; ARTERIAL ANAST, (Per Dr. Neumann); Surgeon: Alex Neumann MD; Location: OR [facility]; Service: General; Laterality: Right; ALLERGIES: No drug allergies MEDICATIONS: Current Outpatient Medications: allopurinol (ZYLOPRIM) 100 MG tablet, Take 150 mg by mouth amLODIPine Besylate 5 MG Oral Tablet (NORVASC), 5 mg, Oral, Daily Atenolol 25 MG Oral Tablet (TENORMIN), 25 mg, Oral, BID atorvastatin (LIPITOR) 40 MG tablet, 40 mg, Oral, QPM (Patient taking di fferently: 80 mg, Oral, Every evening) hydrALAZINE HCl 25 MG Oral Tablet (APRESOLINE), 25 mg, Oral, BID losartan (COZAAR) 25 MG tablet, Mycophenolate Sodium 180 MG Oral Tablet Delayed Release (MYFORTIC), 360 mg, Oral, BID Sirolimus 1 MG Oral Tablet (RAPAMUNE), TAKE 2 TABLETS BY MOUTH ONCE KARINA Y Tacrolimus 1 MG Oral Capsule (PROGRAF), 1 mg, Oral, BID Vitamin D, Cholecalciferol, 1000 UNITS capsule, 1,000 Units, Oral, Daily FAMILY HISTORY: Denies family hx of Kidney disease Denies family hx of Kidney disease SOCIAL HISTORY: Denies smoking Hx of Alcohol drinking quit , and currently doing the only one drink -2 /week Denies Hx of drug abuse REVIEW OF SYSTEMS: CONSTITUTIONAL: No chronic fevers, chills or sweats. Weight has been stable over the last year. Appetite and energy are good does routine exercise Daily walking EYES: Normal vision. ENT: No ear, sinus, or dental problems. No thyroid disease PULMONARY: No chronic cough, wheezing, shortness of breath, sputum production, p neumonia, asthma or bronchitis. CARDIOVASCULAR: No history of myocardial infarction, chest pain, palpitations, p aroxysmal nocturnal dyspnea or orthopnea, edema, or claudication. GASTROINTESTINAL: No chronic nausea, vomiting, diarrhea, constipation, heartburn , indigestion, hematemesis, melena or hematochezia. No hepatitis, pancreatitis, cholelithiasis or colitis. GENITOURINARY: No urinary tract infection, gross hematuria, nephrolithiasis, uri nary urgency, frequency or dysuria. MUSCULOSKELETAL: No myalgias, arthralgias, arthritis, or gout. SKIN: No rash, itching or cancer. NEUROLOGIC: No history of stroke, seizure, loss of consciousness, dizziness or l ightheadedness. No focal numbness or weakness. PHYSICAL EXAMINATION: GENERAL: looking stated age, in no acute distress. Alert and oriented to person , place, and time. No complaint of pain. VITAL SIGNS: Visit Vitals BP 135/69 (BP Location: Right arm, Patient Position: Sitting, Cuff size: Regular ) Pulse 77 Temp 36.9 C (98.4 F) (Oral) Wt 91 kg (200 lb 9.9 oz) SpO2 100% BMI 28.79 kg/m EYES: Pupils equal, round, reactive to light. Intact extraocular movements. Scle victor hugo anicteric. ENT: Oropharynx clear. No sinus tenderness to palpation. DENTAL: No abscess, gingivitis or fractured teeth NECK: No lymphadenopathy. No jugular venous distention. 2/2 carotid pulses witho ut bruits. No thyromegaly or nodules. LUNGS: Clear to auscultation. HEART: Regular rhythm. S1, S2. No S3, S4, murmur, rub or gallop. ABDOMEN: Soft, nontender, nondistended. No mass, organomegaly, or bruit. Normal bowel sounds. EXTREMITIES: No peripheral edema. 2/2 femoral and dorsalis pedis pulses bilatera lly. SKIN: No rash. NEUROLOGIC: Cranial nerves II-XI intact. Motor strength 5/5 throughout. Sensory intact to light touch. No dysmetria, ataxia, or tremor. LABORATORY DATA: Reviewed DIAGNOSTIC STUDIES: Reviewed IMPRESSION AND RECOMMENDATION: Pramod Duque is a 65 y.o. male with stage V chronic kidney disease due to failin g kidney transplant who is a medically acceptable candidate for renal transplan t. To complete evaluation, he needs: --Needs an updated stress echo --Colonoscopy done August 2019 we will review And he is an excellent candidate I spent 60 minutes face to face today with the patient, of which more than 50% t nadege was spent counseling him on the process of evaluation for kidney transplant , criteria for suitability for transplant, types of transplant such as and living donor including expected outcomes for these, and the risks and benefi ts of undergoing kidney transplant including risks of infection and malignancy d ue to immunosuppressive therapy. He stated understanding of this discussion and had all of his questions answered. The case will be presented to the transplant selection committee to determine n eed for any further evaluation and suitability for listing for kidney transplant ation. Thank you very much for allowing us to evaluate Mr Benavidez for renal transplantati on. Electronically signed by Nathen Polo MD MS Transplant Nephrology Faculty Division of Nephrology Department of Internal Medicine documented in this encounter Nursing Notes * Delisa Finn LMSW - 10/29/2020 10:00 AM EDT TRANSPLANT PSYCHO-SOCIAL ASSESSMENT Date: 10/29/2020 MR#: [id number] Name: Pramod Duque :1955 (65 y.o.) [address]: [address] [place] [address] [place] [address] Telephone Information: Work Phone Not on file. Present during interview: Patient ICE: Sherley Martin [phone] HCP: Yes PERSONAL HISTORY US Citizen:US Citizen Race/Ethnicity: White Marital Status: # of Children: 0 biological, 3 step children Education Level: Associate/Bachelor Degree Primary Language: Belizean Can read, write and understand Bel[place]an? 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 If employed, is the employer aware of possible transplant? N/A Does the patient intend on returning to work post transplant? No FINANCIAL Income source: Pt's SS and pension. Insurance: Private Insurance Any financial stressors: No FUNCTIONAL STATUS Physical limitations: No limitations Activity level: Able to carry on normal activity: minor symptoms of disease Hobbies: Pt reports he likes to garden, fish, boat, do woodworking, and he state s he used to lira. Use of DME: No Ability to complete ADLs independently: Yes SELF MANAGEMENT WITH MEDICAL TREATMENT Any difficulty following treatment recommendations or restrictions (diet, exerci se, fluid restrictions, habits, etc.)? No Any difficulty attending medical appointments or completing tests? No Any difficulty taking medications as prescribed? No How does the patient manage medications? Pt has a list of all medications: Yes Pt brought the list with them today: Yes Pt has basic understanding of what meds are for: Yes Pt uses a pillbox: Yes Pt sets an alarm: No Pt uses an alternative system to organize (if yes, what?): N/A Pt well aware of prescription, dose and reason for use: Yes Who manages the pts medication? Self How involved is the patient in his/her own care? Very involved RENAL HISTORY/UNDERSTANDING OF ILLNESS When diagnosed: [id number] Origin of disease: Not exactly sure, kidney infection when he was a child, one k idney never developed after that, hypertension took a toll on the other Dialysis (when, where, schedule, transportation): Not currently on dialysis Missed, late, or abbreviated treatments in the past year: N/A If yes, reason: N/A Has the patient met anyone who has had a transplant? Yes. Pt reports he was prev iously transplanted in 2015, DCD Do the patient and the caregiver understand the educational information provided to him/her at initial evaluation? Yes KNOWLEDGE OF TRANSPLANT PROCESS AND PROCEDURE Do you know about the following? Selection process: Yes Waitlist status: Yes Unknown length of wait time: Yes Length/course of hospitalization: Yes Rehab/recovery: Yes Benefits/risks of transplant: Yes Immune-suppression therapy: Yes Post-transplant follow-up: Yes Personal monitoring and surveillance: Yes If patient answered no to any of the above, he was provided with edu cation or referred to a provider who could answer their questions WILLINGNESS/DESIRE FOR TRANSPLANTATION How do you feel about the transplant process? didn't think it would happen so fa st What are your reasons for pursuing transplant at this time? A better alternative than dialysis Are you aware of the living donor program? Yes Have you had any offers? No DISCHARGE PLAN/SUPPORT SYSTEM Current living space/situation: House Who lives in your household? Who can assist after discharge: Primary Support: Ok to call? Yes Phone #: See above Secondary Support: Sister, stepchildren Relationship Stability (stong/stable, DV, discord, hx of relationship conflict/s tress, etc.): Pt reports good, stable relationships. Do caregivers have a realistic understanding of the caregiver role and their res ponsibilities? Yes Transportation to appointments: , Sister, Stepchildren MENTAL HEALTH Mental health symptoms or diagnoses: No Counseling at any time: No Use of prescribed medications at any time: No Psychiatric treatment or hospitalizations at any time: No Abuse or trauma at any time: No SI/SA/HI at any time: No Eating disorder or body image issues at any time: No Hallucinations/Delusions at any time: No Family psychiatric history: Yes, uncle potentially father's side If currently in treatment or prescribed medications: Current provider (name/phone #): N/A Will you agree to sign a release of information? N/A Would you consider or return to treatment if recommended? N/A How well do you feel you cope with stress/what do you do during stressful situat ions? Pt reports he thinks he does well. What helps you feel better when you are having a difficult time? Not really, alba sn't get stressed out much Who are some specific support people in your life? Pt reports he has some friend s he is comfortable talking to. LEGAL HISTORY Any significant legal history (currently on probation or parole?/assess for risk of recidivism): No SUBSTANCE ABUSE History of substance abuse/treatment: No ETOH: not much anymore, beer every now and then Tobacco: No Recreational Drugs: No, marijuana socially early Prescription Drugs: No OVERALL IMPRESSION A comprehensive evaluation of Mr. Duque's emotional/social support, financial st ability, mental health/substance use, knowledge, understanding and willingness r egarding their illness and the treatment options, ability to cope with a major s urgery and related stressors, and ability to self manage with medications and tr eatment recommendations has been completed. Based on this evaluation and patient's SIPAT score of No data recorded, he is an acceptable candidate for kidney transplant. The patient has a realistic plan for discharge, recovery, treatment and follow up, with social, emotional and finan cial support available. Patient is able to self-manage and has verbalized unders tanding of the long-term need for follow up care and medication. The patient does not present with any psychosocial issues that might complicate recovery, nor are there any identified risks for a poor psychosocial outcome. There are no factors that warrant additional educational or therapeutic interven tions prior to transplant. OR Kidney transplant would place Pramod Duque at potential risk for poor psychosoci al outcome due to documented in this encounter Plan of Treatment Care Team Description Date Type Specialty Aram Ortiz RD, CDN [address] [place] [address] [phone] Arrived 10/29/2020 Nutrition Transplant Gaurav Armstrong MD [address] [address] [phone] 10/26/2021 Telemedicine Transplant Order Schedule Name Type Priority Associated Diag noses 1 Occurrences starting 10/29/2020 until 04/28/2021 Basic Metabolic Panel Lab Routine Pre-reyes splant evaluation for chronic kidney disease 1 Occurrences starting 10/29/2020 until 04/28/2021 Cardiolipin antibody, IgG Lab Routine Pre- transplant evaluation for chronic kidney disease 1 Occurrences starting 10/29/2020 until 04/28/2021 CBC and Differential Lab Routine Pre-trans plant evaluation for chronic kidney disease 1 Occurrences starting 10/29/2020 until 04/28/2021 CMV IgG Lab Routine Pre-transplant evaluation for chronic kidney disease 1 Occurrences starting 10/29/2020 until 04/28/2021 EBV Panel Lab Routine Pre-transplant evaluation for chronic kidney disease Ordered: 10/29/2020 EKG 12 Lead ECG Routine Pre-transplant evaluation for chronic kidney disease 1 Occurrences starting 10/29/2020 until 04/28/2021 G6Pd, Qualitative Lab Routine Pre-transpla nt evaluation for chronic kidney disease 1 Occurrences starting 10/29/2020 until 04/28/2021 Hemoglobin A1c Lab Routine Pre-transplant evaluation for chronic kidney disease 1 Occurrences starting 10/29/2020 until 04/28/2021 Hepatic Function Panel Lab Routine Pre-tra nsplant evaluation for chronic kidney disease 1 Occurrences starting 10/29/2020 until 04/28/2021 Hepatitis B surface Lab Routine Pre-transp lant evaluation antibody for chronic kidney disease 1 Occurrences starting 10/29/2020 until 04/28/2021 Hepatitis B surface Lab Routine Pre-transp lant evaluation antigen for chronic kidney disease 1 Occurrences starting 10/29/2020 until 04/28/2021 Hepatitis C antibody Lab Routine Pre-trans plant evaluation for chronic kidney disease 1 Occurrences starting 10/29/2020 until 04/28/2021 HIV Ag Ab Combo Screen Lab Routine Pre-tra nsplant evaluation for chronic kidney disease 1 Occurrences starting 10/29/2020 until 04/28/2021 HLA Antibody ID Screen Lab Routine Pre-tra nsplant evaluation for chronic kidney disease 1 Occurrences starting 10/29/2020 until 04/28/2021 HLA molecular mabdr Lab Routine Pre-transp lant evaluation for chronic kidney disease 1 Occurrences starting 10/29/2020 until 04/28/2021 Lipid panel Lab Routine Pre-transplant evaluation for chronic kidney disease 1 Occurrences starting 10/29/2020 until 04/28/2021 Magnesium Level Lab Routine Pre-transplant evaluation for chronic kidney disease 1 Occurrences starting 10/29/2020 until 04/28/2021 Mumps antibody, IgG Lab Routine Pre-transp lant evaluation for chronic kidney disease 1 Occurrences starting 10/29/2020 until 04/28/2021 Partial Thromboplastin Lab Routine Pre-tra nsplant evaluation Time (PTT) for chronic kidney disease 1 Occurrences starting 10/29/2020 until 04/28/2021 Phosphorus Level Lab Routine Pre-transplan t evaluation for chronic kidney disease 1 Occurrences starting 10/29/2020 until 04/28/2021 Protime-INR Lab Routine Pre-transplant evaluation for chronic kidney disease 1 Occurrences starting 10/29/2020 until 04/28/2021 Psa Screen Lab Routine Pre-transplant evaluation for chronic kidney disease 1 Occurrences starting 10/29/2020 until 04/28/2021 PTH, intact Lab Routine Pre-transplant evaluation for chronic kidney disease 1 Occurrences starting 10/29/2020 until 04/28/2021 Quantiferon-TB Gold Plus Lab Routine Pre-t ransplant evaluation for chronic kidney disease 1 Occurrences starting 10/29/2020 until 04/28/2021 Rubeola antibody IgG Lab Routine Pre-trans plant evaluation for chronic kidney disease 1 Occurrences starting 10/29/2020 until 04/28/2021 Rubella antibody, IgG Lab Routine Pre-reyes splant evaluation for chronic kidney disease 1 Occurrences starting 10/29/2020 until 04/28/2021 Syphilis IgG/IgM Screen Lab Routine Pre-tr ansplant evaluation w/Reflex to RPR for chronic kidney disease 1 Occurrences starting 10/29/2020 until 04/28/2021 Uric acid Lab Routine Pre-transplant evaluation for chronic kidney disease 1 Occurrences starting 10/29/2020 until 04/28/2021 Varicella zoster Lab Routine Pre-transplan t evaluation antibody, IgG for chronic kidney disease Expected: 10/29/2020, Expires: 3 XR Chest Frontal and Imaging Routine Pre-trans plant evaluation Lateral for chronic kidney disease Health Maintenance Due Date Last Done Comments MMR Vaccines (1 of - 08/13/1956 Standard series) Varicella Vaccines (1 [...] 01/22/2014 Hepatitis C Screening (B. Completed 09/22/2014, [id number]) 12/12/2013 COVID-19 Vaccine Completed 09/29/2020, 04/07/2020, 03/10/2020 [...] filedocumented in this encounter Visit Diagnoses Diagnosis Pre-transplant evaluation for chronic k idney disease - Primary Other specified pre-operative examinati on Pre-transplant evaluation for kidney tr ansplant Other specified pre-operative examinati on documented in this encounter
--- OUTSIDE RECORDS SUMMARY | 2020-11-25 10:07 | CCD | Continuity of Care Document ---
Author Author Pramod MCNULTY M.D. Organization Unknown Address [address] [facility], [address] [place] [address] Phone [phone] Care Team Providers Care Tank Tender Name Role Phone Ernesto Mcguire MD @ [facility] Int AUTM Chau Pitt M.D. AUTM [phone] Problems Active Problems Provider Date Essential hypertension Christopher Mcnulty M.D. Onset: Social History Type Date Description Comments Sex Unknown ETOH Use 1-2 A Week Recreational Drug Use Denies Drug Use Tobacco Use Start: Unknown Denies Smoking Allergies, Adverse Reactions, Alerts Description No Known Drug Allergies Medications Active Medications SIG Qnty Indications Ordering Provide r Date Atorvastatin Calcium 80mg Tablets 1 qd Unknown Hydralazine HCL 25mg Tablets 1 tab by mouth twice a day Unknown Amlodipine Besylate 5mg Tablets 1 qd Unknown Atenolol 25mg Tablets 1 qd Unknown Allopurinol 100mg Tablets 1 1/2 tab qd Unknown Tacrolimus 1mg Capsules 1 tab by mouth twice a day Unknown Sirolimus 1mg Tablets 2 tabs by mouth every day Unknown Sodium Bicarbonate 650mg Tablets Take 2 Tablets By Mouth Twice A Day Unknown Vitamin D3 Maximum Strength 125mcg (5000 Ut) Capsules 1 qd Unknown Iron (Ferrous Sulfate) 325(65Fe) mg Tablets 1 qd Unknown Immunizations Description No Information Available Vital Signs Date Vital Result Comment 11/04/2020 11:26am BP Systolic 120 mmHg BP Diastolic 70 mmHg Body Temperature 98.3 F Height 70 inches 5'10" Weight 201.12 lb BMI (Body Mass Index) 28.9 kg/m2 [place] Body Weight 166 lb Weight 91.230 kg BSA (Body Surface Area) 2.09 m2 08/26/2020 2:57pm BP Systolic 138 mmHg BP Diastolic 84 mmHg Height 70 inches 5'10" Weight 200.25 lb BMI (Body Mass Index) 28.7 kg/m2 [place] Body Weight 166 lb Weight 90.833 kg BSA (Body Surface Area) 2.09 m2 Results Description No Information Available Procedures Date Code Description Status 08/26/2020 95928 Office/Outpatient New Moderate M DM 45-59 Minutes Completed Medical Devices Description No Information Available Encounters Type Date Location Provider Dx Diagnosis Office Visit 08/26/2020 2:45p [facility] Christopher sanches M.D. Z94.0 Kidney transplant status N18.4 Chronic kidney disease, stag e 4 (severe) Assessments Date Code Description Provider 08/26/2020 Z94.0 Kidney transplant status Christopher Mcnulty M.D. 08/26/2020 N18.4 Chronic kidney disease, stage 4 (severe) Christopher Mcnulty M.D. Plan of Treatment 08/26/2020 - Christopher Mcnulty M.D.* Z94.0 Kidney transplant status* Comments:* Patient was counseled that he should be a good candidate for peritoneal dialysis. He has had a prior hernia repair and his only other abdominal procedure was his transplant. I would not expect that the transplant would cause any significant intra-abdominal scarring to interfere with the peritoneal dialysis. I discussed with him that it is important that we get the peritoneal dialysis catheter placed early enough that it can heal completely before he needs to start dialysis. He is a little reluctant to go ahead just yet. 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 I did describe the placement of the peritoneal dialysis catheter to him. I advised him that this would normally be placed in the left upper quadrant and directed into the lower abdomen. It must heal usually for about 2 weeks before it can be safely used. I described for him the risks of the placement and he had an opportunity to ask questions. He will contact my office when he wishes to proceed with scheduling of the placement of the CAPD catheter. * N18.4 Chronic kidney disease, stage 4 (severe) Functional Status Description No Information Available Mental Status Description No Information Available Referrals Description No Information Available
--- OUTSIDE RECORDS SUMMARY | 2020-11-25 10:07 | CCD | Continuity of Care Document ---
Author Author Lab Schedule, Pramod Bone Organization Unknown Address [address] [address] Phone Unavailable Care Team Providers Care Appliance Assembler Name Role Phone Chau Pitt MD AUTM [phone] Ernesto Mcguire JR, MD AUTM Unavailable Christopher Castro MD AUTM Unavailable Taye Sanchez MD AUTM [phone] Binta Solares MD AUTM [phone] Elias Hernandez MD AUTM [phone] Problems Active Problems Provider Date Gout Ernesto Mcguire MD Onset: 03/21/2011 Chronic kidney disease stage 4 Ernesto Mcguire MD Onset: 03/21/2011 Hyperkalemia Ernesto Mcguire MD Onset: 03/21/2011 Pure hypercholesterolemia Ernesto Mcguire MD Onset: 03/21 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 Ernesto Mcguire MD Onset: 03/21/2011 Essential hypertension Ernesto Mcguire MD Onset: 03/21/19 12 Proteinuria Ernesto Mcguire MD Onset: 03/21/2011 Social History Type Date Description Comments Sex Unknown ETOH Use Currently consumes alcohol no mo re than 1 alcoholic beverage in an average week Tobacco Use Start: Unknown Patient has never smoked Allergies, Adverse Reactions, Alerts Description No Known Drug Allergies Medications Active Medications SIG Qnty Indications Ordering Provide r Date Hydrochlorothiazide 25mg Tablets 1 by mouth twice daily Ernesto Mcguire MD 08/27/19 21 Tizanidine HCL 2mg Capsules 1 cap twice daily as needed for muscle spasms 30caps Ernesto sierra MD 08/13/2019 Shingrix 50mcg/0.5ML Suspension Re c administer 0.5 milliliters intramuscular, repeat in 2 to 6 months 2units Ernesto Mcguire MD 02/21/2018 Levitra 20mg Tablets take as directed for ED 6tabs Ernesto Mcguire MD 07/24/2017 Atenolol 25mg Tablets 1 by mouth every day 90tabs Ernesto Mcguire MD 07/05/2016 Vitamin D-3 1000Unit Capsules 1 by mouth every day 30caps Ernesto Mcguire MD 07/05/[address] 2 by mouth twice a day 240tabs Ernesto Mcguire MD 11/27/2014 Rapamune 1mg Tablets 3 Tabs PO Daily 90tabs Ernesto Mcguire MD 11/27/2014 Allopurinol 100mg Tablets take 1 and 1/2 tablets daily 135tabs Ernesto Mcguire MD 03/21/2011 Amlodipine Besylate 5mg Tablets 1 by mouth every day 90tabs Ernesto Mcguire MD Tacrolimus 1mg Capsules 1 by mouth twice a day Unknown Atorvastatin Calcium 80mg Tablets Take 1 Tablet AT Bedtime (Replaces Pravastatin)-DR. Pitt Unknown Sodium Bicarbonate 650mg Tablets 1 by mouth twice a day Unknown Medications Administered in Office Medication SIG Qnty Indications Ordering Provider Date Covid-19 vaccine, Unspecified Inj ection Unknown 03/10/2020 Administration Of Flu Vaccine Inj ection Ernesto Mcguire MD 11/23/2017 Administration Of Flu Vaccine Inj ection Ernesto Mcguire MD 11/27/2015 Immunizations CPT Code Status Date Vaccine Reaction Lot # U-Flu Given 10/17/2019 Influenza,Unspecified [id number] Given 08/13/2019 Pneumovax 23 [id number] U-Flu Given 11/20/2018 Influenza,Unspecified U-PneuC Given 04/24/2018 Prevnar 13 U-PneuC Given 04/24/2018 Prevnar 13 [id number] Given 11/23/2017 Influenza Virus Vaccine, Quadrivalent (Cciiv4), Derived From 6 Given 11/18/2016 Influenza Vaccin e Quadrivalent Preser/Antibiotic Free Im Use [id number] Given 11/27/2015 Fluvirin Virus Vaccine 16 [id number] 61132 Given 02/19/2014 PPD 0 mm [id number] Given 05/16/2012 Zoster Vaccine Vital Signs Date Vital Result Comment 08/26/2020 9:25am BP Systolic 120 mmHg BP Diastolic 78 mmHg Heart Rate 64 /min Height 70 inches 5'10" Weight 202.00 lb BMI (Body Mass Index) 29.0 kg/m2 02/14/2020 9:42am BP Systolic 124 mmHg BP Diastolic 72 mmHg Height 70 inches 5'10" Weight 214.00 lb BMI (Body Mass Index) 30.7 kg/m2 Results Test Acquired Date Facility Test Result H/L Range Note Laboratory test finding 09/29/2020 [facility] Account Information Clerk nelda willoughby Administrator Pesticide: [place] [address] [phone] PSA 0.93 ng/mL <4.00 1 CBC With Differential 07/21/2020 [place] [id number] [phone] White Blood Count 3.0 10 Low 4.0-10.0 Red Blood Count 4.08 10 Low 4.30-6.10 Hemoglobin 10.8 g/dL Low 13.5-17.5 Hematocrit 35.0 % Low 42.0-52.0 Mean Corpuscular Volume 85.8 fl Normal 80.0-96.0 Mean Corpuscular Hemoglobin 26.5 pg Low 27.0-33.0 Mean Corpuscular HGB Conc 30.9 g/dL Low 32.0-36.5 Red Cell Distribution Width 12.9 % Normal 11.5-14.5 Platelet Count, Automated 150 10 Normal 150-450 Neutrophils % 62.6 % Normal 36.0-66.0 Lymph % 20.2 % Low 24.0-44.0 [place] % 15.2 % High 2.0-8.0 Eos % 1.0 % Normal 0.0-3.0 Baso % 0.3 % Normal 0.0-1.0 Immature Granulocyte % 0.7 % Normal 0-3.0 Nucleated Red Blood Cell % 0.0 % Normal 0-0 Neutrophils # 1.9 10 Normal 1.5-8.5 Lymph # 0.6 10 Low 1.5-5.0 [place] # 0.5 10 Normal 0.0-0.8 Eos # 0.0 10 Normal 0.0-0.5 Baso # 0.0 10 Normal 0.0-0.2 Liver Profile 07/21/[address] [address] [phone] Ast/Sgot 12 U/L Normal 7-37 Alt/SGPT 31 U/L Normal 12-78 Alkaline Phosphatase 100 U/L Normal 45-117 Bilirubin,Total 0.4 mg/dL Normal 0.2-1.0 Bilirubin,Direct 0.2 mg/dL Normal 0.0-0.2 Total Protein 7.2 GM/DL Normal 6.4-8.2 Albumin 3.7 GM/DL Normal 3.2-5.2 Albumin/Globulin Ratio 1.1 Normal Renal Profile 07/21/[address] [address] [phone] Glucose, Fasting 97 mg/dL Normal 70-100 Blood Urea Nitrogen 62 mg/dL High 7-18 Creatinine For GFR 3.02 mg/dL High 0.70-1.30 Glomerular Filtration Rate 22.3 Low >49 2 Sodium Level 141 mEq/L Normal 136-145 Potassium Serum 4.4 mEq/L Normal 3.5-5.1 Chloride Level 116 mEq/L High 98-107 Carbon Dioxide Level 18 mEq/L Low 21-32 Anion Gap 7 mEq/L Low 8-16 Calcium Level 9.1 mg/dL Normal 8.8-10.2 Phosphorus Level 3.9 mg/dL Normal 2.5-4.9 Laboratory test finding 07/21/[address] [address] [phone] Magnesium Level 1.7 mg/dL Low 1.8-2.4 Sirolimus (Rapamune) Other Lab SEE COMMENT Normal FK 506 (Tacrolimus) Other Lab SEE COMMENT Normal 3 Ua Routine 07/21/[address] [address] [phone] Appearance, Urine CLEAR Normal Clear Color, Urine STRAW Normal Yellow PH,Urine 5.0 units Normal 5.0-9.0 Specific [place] Urine Auto 1.009 Normal 1.002-1.035 Protein, Urine Auto NEGATIVE mg/dL Normal Negative Glucose, Urine (Ua) Auto NEGATIVE mg/dL Normal Negative Ketone, Urine Auto NEGATIVE mg/dL Normal Negative Urobilinogen, Urine Auto 0.2 mg/dL Normal 0.0-2.0 Bilirubin, Urine Auto NEGATIVE Normal Negative Nitrite, Urine Auto NEGATIVE Normal Negative Leukocyte Esterase, Urine Auto NEGATIVE Normal Negative Blood, Urine Blood 1+ High Negative WBC, Urine Auto 1 /HPF Normal 0-3 RBC, Urine Auto 0 /HPF Normal 0-3 Bacteria, Urine Auto NEGATIVE Normal Negative Squamous Epithelial Cell Ur AU 0 /HPF Normal 0-6 Hyaline Cast, Urine Auto 0 /LPF Normal 0-1 Laboratory test finding 07/21/[address] [id number] [phone] Creatinine,Random Urine 87.5 mg/dL Normal 4 Total Protein,Random Urine 28.9 mg/dL High 0.0-12.0 5 Urine Culture FULL REPORT IN L <SEE NOTE> Normal 6 1 This assay was performed on the [employer] EXL using the B- Galactosidase/CPRG methodology and should not be compared interchangeably with other methods. The PSA should not be used alone as a screening test for the presence or absence of malignant disease. 2 Units are mL/min/1.73 m2 Chronic Kidney Disease Staging per NKF: Stage I & II GFR >=60 Normal to Mildly Decreased Stage III GFR 30-59 Moderately Decreased Stage IV GFR 15-29 Severely Decreased Stage V GFR <15 Very Little GFR Left ESRD GFR <15 on PC NETWORK TECHNICIAN 3 Test sent to Reference lab o n 07/21/20 . Specimen processed at [facility] only. No separate report to follow. 4 Urine Source: URINE, CLEAN C ATCH 5 Urine Source: URINE, CLEAN C ATCH 6 FULL REPORT IN LAB NOTES (eC W and Medent). NO GROWTH Procedures Date Code Description Status 08/26/2020 36884 Office/Outpatient Established Mo d MDM 30-39 Min Completed 08/26/2020 09044 EKG/Interpretation & Report Comp leted 09/04/2019 [id number] Colonoscopy Completed 08/22/2017 [id number] Diabetic Retinal Eye Exam Comple victor hugo 07/27/2017 [id number] Diabetic Retinal Eye Exam Comple victor hugo 02/16/2009 [id number] Colonoscopy Completed 07/12/2005 [id number] Colonoscopy Completed Medical Devices Description No Information Available Encounters Type Date Location Provider Dx Diagnosis Office Visit 08/26/2020 9:20a [facility] 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 E78.00 Pure hypercholesterolemia, u nspecified Z86.010 Personal history of colonic polyps E79.0 Hyperuricemia w/o signs of i nflam arthrit and tophaceous dis Assessments Date Code Description Provider 09/29/2020 Z12.5 Encounter for screening for gustavo gnant neoplasm of prostate Ernesto Mcguire MD 09/29/2020 Z12.5 Encounter for screening for gustavo gnant neoplasm of prostate Lab Schedule 08/26/2020 N17.9 Acute kidney failure, unspecifie d Ernesto Mcguire MD 08/26/2020 P19.9 Metabolic acidemia, unspecified Ernesto Mcguire MD 08/26/2020 I15.0 Renovascular hypertension Tejinderhumberto Mcguire MD 08/26/2020 Z94.0 Kidney transplant status Ernesto Mcguire MD 08/26/2020 D84.9 Immunodeficiency, unspecified Co llodette Mcguire MD 08/26/2020 N03.9 Chronic nephritic syndrome with unspecified morphologic pride Ernesto Mcguire MD 08/26/2020 E78.00 Pure hypercholesterolemia, unspe cified Ernesto Mcguire MD 08/26/2020 Z86.010 Personal history of colonic poly ps Ernesto Mcguire MD 08/26/2020 E79.0 Hyperuricemia without signs of i nflammatory arthritis and to Ernesto Mcguire MD Plan of Treatment Future Appointment(s):* 03/03/2021 9:40 am - Ernesto Mcguire MD at [facility] * 03/03/2021 9:20 am - Nurse #2 at [facility] * 03/02/2021 8:10 am - [facility] 08/26/2020 - Ernesto Mcguire MD* N17.9 Acute kidney failure, unspecified * P19.9 Metabolic acidemia, unspecified * I15.0 Renovascular hypertension * Z94.0 Kidney transplant status * D84.9 Immunodeficiency, unspecified * N03.9 Chronic nephritic syndrome with unspecified morphologic pride * E78.00 Pure hypercholesterolemia, unspecified * Z86.010 Personal history of colonic polyps * E79.0 Hyperuricemia without signs of inflammatory arthritis and to * All * New Medication:* Hydrochlorothiazide 25 mg - 1 by mouth twice daily Functional Status Description No Information Available Mental Status Description No Information Available Referrals Description No Information Available
--- OUTSIDE RECORDS SUMMARY | 2020-11-25 10:07 | CCD | Summary of Care ---
Author Author [facility] Address Unknown Phone Unavailable Care Team Providers Care Health Services Rn Name Role Phone Shayla Martinez MD, Ernesto Gómez PCP Encounter Details Care Team Description Date Type Department Pre-transplant evaluation fo r chronic kidney disease 10/29/2020 [facility] Diagnostic Radiolog y Encounter [address] [address] Allergies No Known Active Allergiesdocumented as of this encounter (statuses as of 10/30/2020) Medications End Date Status Medication Sig Dispensed Refills Start Date Active Vitamin D, Take 1,000 0 Cholecalciferol, 1000 Units by UNITS capsule mouth daily. Active allopurinol (ZYLOPRIM) Take 150 mg 0 [...] as of this encounter (statuses as of 10/30/2020) Active Problems Problem Noted Date Kidney replaced [...] as of this encounter (statuses as of 10/30/2020) Immunizations Name Administration Dates Next Due Influenza [...] of this encounter Last Filed Vital Signs Not on filedocumented in this encounter Plan of Treatment Care Team Description Date Type Specialty Gaurav Armstrong MD [address] Room [address] [place] [address] [id number] 10/26/2021 Telemedicine Transplant Alisha Sanabria NP [address] [place] [address] [address] 10/28/2021 Office Visit Transplant Health Maintenance Due Date [...] Cancer Screening 10 09/03/2029 09/04/2019, yrs 01/22/2014 COVID-19 Vaccine Completed 09/29/2020, 04/07/2020, 03/10/2020 Hepatitis C Screening (B. Completed 10/29/2020, [id number]) 09/22/2014, 12/12/2013 HIB Vaccines Aged Out No longer eligible [...] this topic documented as of this encounter Procedures Comments Procedure Name Priority Date/Time Associated Diag nosis XR CHEST FRONTAL AND Routine 10/29/2020 Pre-trans plant evaluation LATERAL 62026 11:39 AM EDT for chronic kidney disease documented in this encounter Results * XR Chest Frontal and Lateral (10/29/2020 11:39 AM EDT) Specimen Impressions Performed At IMPRESSION: [facility] No radiographic evidence of acute disea se. Narrative Performed At [facility] INDICATION: Preoperative kidney transpl ant evaluation. TECHNIQUE: XR CHEST FRONTAL AND LATERAL 32782, 11:34 AM, upright PA and lateral views. COMPARISON: Chest radiograph dated 09/23. FINDINGS: The chest wall is normal in appearance. Degenerative changes are present in thoracic spine. The cardiomediastinal contours are norm al. There is no evidence of pleural disease . The lungs are clear. Procedure Note Interface, Received Via [employer] - 10/29/2020 12:00 PM EDT INDICATION: Preoperative kidney transplant evaluation. TECHNIQUE: XR CHEST FRONTAL AND LATERAL 15114, 10/29/2020 11:34 AM, upright PA and lateral views. COMPARISON: Chest radiograph dated 09/23/2014. FINDINGS: The chest wall is normal in appearance. Degenerative changes are present in thoracic spine. The cardiomediastinal contours are normal. There is no evidence of pleural disease. The lungs are clear. IMPRESSION: No radiographic evidence of acute disease. Performing Organization Address City/State/ZIP Code P evelin Number [facility] [address] [place] [address] documented in this encounter Visit Diagnoses Diagnosis Pre-transplant evaluation for chronic k idney disease Other specified pre-operative examinati on documented in this encounter
--- OUTSIDE RECORDS SUMMARY | 2020-11-25 10:07 | CCD ---
Author Author [facility] Organization [facility] Address Unknown Phone Unavailable Care Team Providers Care Application Security Developer Name Role Phone Vianey Coreas Unavailable PROBLEMS Type Condition ICD9-CM Code [id number] Code Onset Dates Condition S tatus W/U Status Risk SNOMED Code Notes Problem Melanocytic nevi of right upper limb, including shoulder D22.61 Active confirmed 648175906 Problem Melanocytic nevi of trunk D22.5 Active confirmed 436281025 Problem Melanocytic nevi of face D22.30 Active confirmed [id number] Problem Melanocytic nevi of left upper limb, including shoulder D22.62 Active confirmed [id number] ALLERGIES No Known Allergies ENCOUNTERS from 1955 to 2020-10-06 Encounter Location Date Provider Diagnosis [facility] Dermatology [address] [place] [address] [place] [address] Sep, Vianey Coreas Encounter for screening for malignant neoplasm of skin Z12.83 ; Seborrheic keratoses L82.1 ; Multiple benign nevi D22.9 and Long-term use of immunosuppressant medication Z79.899 IMMUNIZATIONS No Information SOCIAL HISTORY Tobacco Use: Social History Observation Description Date Details (start date - stop date) Never Smoker Sex Assigned At : Social History Observation Description Sex Assigned At Unknown Tobacco Use: Question Answer Notes Are you a: never smoker REASON FOR REFERRAL No Information VITAL SIGNS Weight 203.0 lbs Sep, Height 70 in Sep, BMI 29.12 kg/m2 Sep, Blood pressure systolic 130 mm Hg Sep, Blood pressure diastolic 86 mm Hg Sep, MEDICATIONS Medication SIG (Take, Route, Frequency, Duration) Notes Start Da te End Date Status Mycophenolic Acid Not-Frantz ing Sirolimus 0.5 MG as directed Orally Active hydroCHLOROthiazide 25 MG 1 tablet in the morning Oral ly Once a day for 30 day(s) Active Atenolol 25 MG 1 tablet Orally Once a day for 30 day(s) Active amLODIPine Besylate 10 MG 1 tablet Orally Once a day for 30 day(s) Active Tacrolimus 1 MG as directed Orally A ctive Vitamin D (Cholecalciferol) 25 MCG (1000 UT) 1 capsule Orally Once a day for 30 day(s) Active Losartan Potassium 50 MG 1 tablet Orally Once a day for 30 day(s) Not-Taking Allopurinol 100 MG 1 tablet Orally Once a day for 30 day(s) Active Atorvastatin Calcium 20 MG 1 tablet Orally Once a day for 30 day(s) Active PROCEDURES No Information RESULTS No Results REASON FOR VISIT FBSE (DR. TERRAZAS PT) MEDICAL (GENERAL) HISTORY Type Description Date Medical History hypertension Medical History high cholesterol Medical History kidney transplant Surgical History kidney transplant 2016 Surgical History appendectomy Surgical History Tiblia repair Hospitalization History surgical Goals Section No Information Health Concerns No Information MEDICAL EQUIPMENT No Information MENTAL STATUS No Information FUNCTIONAL STATUS No Information ASSESSMENTS Encounter Date Diagnosis Assessment Notes Treatment Notes Treatm ent Clinical Notes Sep, Encounter for screening for malignant neoplasm of skin (ICD-10 - Z12.83) Patient counseled on signs and symptoms of skin cancer including ABCDE's of Melanoma. Patient counseled to wear sunscreen or use sun protective clothing when outdoors. Avoid peak hours of sun between 10-2. Patient instructed to call with any new or changing lesions. Sep, Seborrheic keratoses (ICD-10 - L82.1) Benign Lesion Counseling. The patient was extensively counseled regarding the benign nature of the lesion but that skin cancer may arise in this area just as it would anywhere on their skin. For that reason, return to clinic was recommended for any acute changes, itching, burning, or bleeding. The patient was educated that benign lesions are not a covered insurance benefit and treatment would be elective and cosmetic. They expressed understanding. Sep, Multiple benign nevi (ICD-10 - D22.9) Reminded to avoid the sun and tanning, use sun screens regularly when spending time [id number], and perform self-examinations monthly to watch for any change in the appearance of your moles. If you notice any changes in color, appearance, symptoms of moles, you should contact the office for an appointment to have change evaluated as soon as possible. Sep, Long-term use of immunosuppressant medication (I CD-10 - Z79.899) S/P Renal transplant PLAN OF TREATMENT Treatment Notes Assessment Notes Clinical Notes Encounter for screening for malignant neoplasm of skin Patient counseled on signs and symptoms of skin cancer including ABCDE's of Melanoma. Patient counseled to wear sunscreen or use sun protective clothing when outdoors. Avoid peak hours of sun between 10-2. Patient instructed to call with any new or changing lesions. Seborrheic keratoses Benign Lesion Counseling. Th e patient was extensively counseled regarding the benign nature of the lesion but that skin cancer may arise in this area just as it would anywhere on their skin. For that reason, return to clinic was recommended for any acute changes, itching, burning, or bleeding. The patient was educated that benign lesions are not a covered insurance benefit and treatment would be elective and cosmetic. They expressed understanding. Multiple benign nevi Reminded to avoid the sun an d tanning, use sun screens regularly when spending time [id number], and perform self-examinations monthly to watch for any change in the appearance of your moles. If you notice any changes in color, appearance, symptoms of moles, you should contact the office for an appointment to have change evaluated as soon as possible. Long-term use of immunosuppressant medication S/P Renal reyes splant Next Appt Details 1 Year Reason:FBSE Provider Name:Vianey Bosch Joss, 2021-10-04 03:00:00 PM, [address] [place] [address], , [place], [place], [facility], Follow Up:1 YearFBSE Insurance Providers Payer Name Payer Address Payer Phone Insured Name Patient Relati onship to Insured Coverage Start Date Coverage End Date [facility] [address] [place] [address] FITZ TALBERT MEDICARE Part A and B [address] [facility] [id number] [phone] ARRON TALBERT self
--- OUTSIDE RECORDS SUMMARY | 2020-11-25 10:07 | CCD | Continuity of Care Document ---
Author Author Lab Schedule, Pramod Bone Organization Unknown Address [address] [address] Phone Unavailable Care Team Providers Care Call Center Recruiter Name Role Phone Chau Pitt MD AUTM [phone] Ernesto Mcguire JR, MD AUTM Unavailable Christopher Castro MD AUTM Unavailable Taye Sanchez MD AUTM [phone] Binta Solares MD AUTM [phone] Elias Hernandez MD AUTM [phone] Problems Active Problems Provider Date Gout Ernesto [...] Reaction Lot # U-Flu Given 10/17/2019 Influenza,Unspecified [id number] Given 08/13/2019 Pneumovax 23 [id number] U-Flu Given 11/20/2018 Influenza,Unspecified U-PneuC Given 04/24/2018 Prevnar 13 U-PneuC Given 04/24/2018 Prevnar 13 51728 Given 11/23/2017 Influenza Virus Vaccine, Quadrivalent (Cciiv4), Derived From 4 Given 11/18/2016 Influenza Vaccin e Quadrivalent Preser/Antibiotic Free Im Use [id number] Given 11/27/2015 Fluvirin Virus Vaccine 16 [id number] 89217 Given 02/19/2014 PPD 0 mm [id number] 49871 Given 05/16/2012 Zoster Vaccine Vital Signs Date [...] H/L Range Note Laboratory test finding 09/29/2020 [facility] nelda willoughby Vb Developer: [place] [address] [phone] PSA <pending> CBC With Differential 07/21/2020 [place] [address] [place] [id number] [phone] White Blood Count 3.0 10 Low 4.0-10.0 [...] 36.0-66.0 Lymph % 20.2 % Low 24.0-44.0 [place] % 15.2 % High 2.0-8.0 Eos % 1.0 % Normal 0.0-3.0 Baso % 0.3 % Normal 0.0-1.0 Immature Granulocyte % 0.7 % Normal 0-3.0 Nucleated Red Blood Cell % 0.0 % Normal 0-0 Neutrophils # 1.9 10 Normal 1.5-8.5 Lymph # 0.6 10 Low 1.5-5.0 [place] # 0.5 10 Normal 0.0-0.8 Eos # 0.0 10 Normal 0.0-0.5 Baso # 0.0 10 Normal 0.0-0.2 Liver Profile 07/21/[address] 1220806 [phone] Ast/Sgot 12 U/L Normal 7-37 Alt/SGPT 31 U/L Normal 12-78 Alkaline Phosphatase 100 U/L Normal 45-117 Bilirubin,Total 0.4 mg/dL Normal 0.2-1.0 Bilirubin,Direct 0.2 mg/dL Normal 0.0-0.2 Total Protein 7.2 GM/DL Normal 6.4-8.2 Albumin 3.7 GM/DL Normal 3.2-5.2 Albumin/Globulin Ratio 1.1 Normal Renal Profile 07/21/[address] [address] [phone] Glucose, Fasting 97 mg/dL Normal 70-100 Blood Urea Nitrogen 62 mg/dL High 7-18 Creatinine For GFR 3.02 mg/dL High 0.70-1.30 Glomerular Filtration Rate 22.3 Low >49 1 Sodium Level 141 mEq/L Normal 136-145 Potassium Serum 4.4 mEq/L Normal 3.5-5.1 Chloride Level 116 mEq/L High 98-107 Carbon Dioxide Level 18 mEq/L Low 21-32 Anion Gap 7 mEq/L Low 8-16 Calcium Level 9.1 mg/dL Normal 8.8-10.2 Phosphorus Level 3.9 mg/dL Normal 2.5-4.9 Laboratory test finding 07/21/[address] [address] [phone] Magnesium Level 1.7 mg/dL Low 1.8-2.4 Sirolimus (Rapamune) Other Lab SEE COMMENT Normal FK 506 (Tacrolimus) Other Lab SEE COMMENT Normal 2 Ua Routine 07/21/[address] [address] [phone] Appearance, Urine CLEAR Normal Clear Color, Urine STRAW Normal Yellow PH,Urine 5.0 units Normal 5.0-9.0 Specific [place] Urine Auto 1.009 Normal 1.002-1.035 Protein, Urine [...] /LPF Normal 0-1 Laboratory test finding 07/21/2020 [place] [address] [place], [place] [address] [phone] Creatinine,Random Urine 87.5 mg/dL Normal 3 Total Protein,Random Urine 28.9 mg/dL High 0.0-12.0 4 Urine Culture FULL REPORT IN L <SEE NOTE> Normal 5 1 Units are mL/min/1.73 m2 Chronic Kidney Disease Staging per NKF: Stage I & II GFR >=60 Normal to Mildly Decreased Stage III GFR 30-59 Moderately Decreased Stage IV GFR 15-29 Severely Decreased Stage V GFR <15 Very Little GFR Left ESRD GFR <15 on LAWN MOWER MECHANIC 2 Test sent to Reference lab o n 07/21/20 . Specimen processed at [facility] only. No separate report to follow. 3 Urine Source: URINE, CLEAN C ATCH 4 Urine Source: URINE, CLEAN C ATCH 5 FULL REPORT IN LAB NOTES (eC W and Medent). NO GROWTH Procedures Date Code Description Status 08/26/2020 61312 Office/Outpatient Established Mo d MDM 30-39 Min Completed 08/26/2020 94890 EKG/Interpretation & Report Comp leted 09/04/2019 [id number] Colonoscopy Completed 08/22/2017 [id number] Diabetic Retinal Eye Exam [facility] 07/27/2017 [id number] Diabetic Retinal Eye Exam [facility] 02/16/2009 [id number] Colonoscopy Completed 07/12/2005 [id number] Colonoscopy Completed Medical Devices Description No Information Available Encounters Type Date Location Provider Dx Diagnosis Office Visit 08/26/2020 9:20a [facility] 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 * 03/03/2021 9:20 am - Nurse #2 at [facility] * 03/02/2021 8:10 am - Lab Schedule at [facility] 08/26/2020 - Ernesto Mcguire MD* N17.9 [...]
--- OUTSIDE RECORDS SUMMARY | 2020-11-25 10:08 | CCD | Continuity of Care Document ---
Author Author Lab Schedule, Pramod Bone Organization Unknown Address [address] [address] Phone Unavailable Care Team Providers Care Screen Print Operator Name Role Phone Chau Pitt MD AUTM [phone] Ernesto Mcguire JR, MD AUTM Unavailable Christopher Castro MD AUTM Unavailable Taye Sanchez MD AUTM [phone] Binta Solares MD AUTM [phone] Elias Hernandez MD AUTM [phone] Problems Active Problems Provider Date Gout Ernesto [...] Reaction Lot # U-Flu Given 10/17/2019 Influenza,Unspecified 23754 Given 08/13/2019 Pneumovax 23 [id number] U-Flu Given 11/20/2018 Influenza,Unspecified U-PneuC Given 04/24/2018 Prevnar 13 U-PneuC Given 04/24/2018 Prevnar 13 86285 Given 11/23/2017 Influenza Virus Vaccine, Quadrivalent (Cciiv4), Derived From 7 Given 11/18/2016 Influenza Vaccin e Quadrivalent Preser/Antibiotic Free Im Use [id number] Q2037 Given 11/27/2015 Fluvirin Virus Vaccine 16 36712 42247 Given 02/19/2014 PPD 0 mm [id number] 42258 Given 05/16/2012 Zoster Vaccine Vital Signs Date [...] Date Facility Test Result H/L Range Note CBC With Differential 07/21/[address] 1970669 [phone] White Blood Count 3.0 10 Low 4.0-10.0 [...] 36.0-66.0 Lymph % 20.2 % Low 24.0-44.0 [place] % 15.2 % High 2.0-8.0 Eos % 1.0 % Normal 0.0-3.0 Baso % 0.3 % Normal 0.0-1.0 Immature Granulocyte % 0.7 % Normal 0-3.0 Nucleated Red Blood Cell % 0.0 % Normal 0-0 Neutrophils # 1.9 10 Normal 1.5-8.5 Lymph # 0.6 10 Low 1.5-5.0 [place] # 0.5 10 Normal 0.0-0.8 Eos # 0.0 10 Normal 0.0-0.5 Baso # 0.0 10 Normal 0.0-0.2 Liver Profile 07/21/[address] 3913538 [phone] Ast/Sgot 12 U/L Normal 7-37 Alt/SGPT 31 U/L Normal 12-78 Alkaline Phosphatase 100 U/L Normal 45-117 Bilirubin,Total 0.4 mg/dL Normal 0.2-1.0 Bilirubin,Direct 0.2 mg/dL Normal 0.0-0.2 Total Protein 7.2 GM/DL Normal 6.4-8.2 Albumin 3.7 GM/DL Normal 3.2-5.2 Albumin/Globulin Ratio 1.1 Normal Renal Profile 07/21/[address] [address] [phone] Glucose, Fasting 97 mg/dL Normal 70-100 Blood [...] mg/dL Normal 2.5-4.9 Laboratory test finding 07/21/[address] [address] [phone] Magnesium Level 1.7 mg/dL Low 1.8-2.4 Sirolimus (Rapamune) Other Lab SEE COMMENT Normal FK 506 (Tacrolimus) Other Lab SEE COMMENT Normal 2 Ua Routine 07/21/[address] [address] [phone] Appearance, Urine CLEAR Normal Clear Color, Urine STRAW Normal Yellow PH,Urine 5.0 units Normal 5.0-9.0 Specific [place] Urine Auto 1.009 Normal 1.002-1.035 Protein, Urine [...] /LPF Normal 0-1 Laboratory test finding 07/21/2020 [facility] [address] [place] [address] [phone] Creatinine,Random Urine 87.5 mg/dL Normal 3 Total [...] Little GFR Left ESRD GFR <15 on TARE WEIGHER 2 Test sent to Reference lab o n 07/21/20 . Specimen processed at [facility] only. No separate report to follow. 3 Urine Source: URINE, CLEAN C ATCH 4 Urine Source: URINE, CLEAN C ATCH 5 FULL REPORT IN LAB NOTES (eC W and [place]). NO GROWTH Procedures Date Code Description Status 08/26/2020 41736 Office/Outpatient Established Mo d MDM 30-39 Min Completed 08/26/2020 61829 EKG/Interpretation & Report Comp leted 09/04/2019 [id number] Colonoscopy Completed 08/22/2017 [id number] Diabetic Retinal Eye Exam [facility] 07/27/2017 [id number] Diabetic Retinal Eye Exam [facility] 02/16/2009 [id number] Colonoscopy Completed 07/12/2005 [id number] Colonoscopy Completed Medical Devices Description No Information Available Encounters Type Date Location Provider Dx Diagnosis Office Visit 08/26/2020 9:20a [facility] Ernesto Mcguire MD N17.9 Acute [...] Mcguire MD 08/26/2020 D84.9 Immunodeficiency, unspecified Co silvio Mcguire MD 08/26/2020 N03.9 Chronic nephritic syndrome with unspecified morphologic pride Ernesto Mcguire MD 08/26/2020 E78.00 Pure hypercholesterolemia, unspe cified Ernesto Mcguire MD 08/26/2020 Z86.010 Personal history of colonic poly ps Ernesto Mcguire MD 08/26/2020 E79.0 Hyperuricemia without signs of i nflammatory arthritis and to Ernesto Mcguire MD Plan of Treatment Future Appointment(s):* 03/03/2021 9:40 am - Ernesto Mcguire MD at [facility] * 03/03/2021 9:20 am - Nurse #2 at [facility] * 03/02/2021 8:10 am - Lab Schedule at [facility] * 09/29/2020 8:20 am - Lab Schedule at [facility] 08/26/2020 - Ernesto Mcguire MD* [...]
--- OUTSIDE RECORDS SUMMARY | 2020-11-25 10:08 | CCD | Continuity of Care Document ---
Author Organization Unknown Address Unknown Phone Unavailable Care Team Providers Care Pharmaceutical Salesperson Name Role Phone Chau Pitt MD AUTM [phone] Ernesto Mcguire JR, MD AUTM Unavailable Christopher Castro MD AUTM Unavailable Taye aSnchez MD AUTM [phone] Binta Solares MD AUTM [phone] Elias Hernandez MD AUTM [phone] Problems Active Problems Provider Date Gout Ernesto [...] Reaction Lot # U-Flu Given 10/17/2019 Influenza,Unspecified 15391 Given 08/13/2019 Pneumovax 23 [id number] U-Flu Given 11/20/2018 Influenza,Unspecified U-PneuC Given 04/24/2018 Prevnar 13 U-PneuC Given 04/24/2018 Prevnar 13 35114 Given 11/23/2017 Influenza Virus Vaccine, Quadrivalent (Cciiv4), Derived From 1 Given 11/18/2016 Influenza Vaccin e Quadrivalent Preser/Antibiotic Free Im Use 032694 Q2037 Given 11/27/2015 Fluvirin Virus Vaccine 16 77975 99838 Given 02/19/2014 PPD 0 mm [id number] 95314 Given 05/16/2012 Zoster Vaccine Vital Signs Date [...] H/L Range Note CBC With Differential 07/21/2020 [facility] [address] [place] [address] [phone] White Blood Count 3.0 10 Low 4.0-10.0 [...] 36.0-66.0 Lymph % 20.2 % Low 24.0-44.0 [place] % 15.2 % High 2.0-8.0 Eos % 1.0 % Normal 0.0-3.0 Baso % 0.3 % Normal 0.0-1.0 Immature Granulocyte % 0.7 % Normal 0-3.0 Nucleated Red Blood Cell % 0.0 % Normal 0-0 Neutrophils # 1.9 10 Normal 1.5-8.5 Lymph # 0.6 10 Low 1.5-5.0 [place] # 0.5 10 Normal 0.0-0.8 Eos # 0.0 10 Normal 0.0-0.5 Baso # 0.0 10 Normal 0.0-0.2 Liver Profile 07/21/2020 [facility] nter [address] [place], [place] [address] [phone] Ast/Sgot 12 U/L Normal 7-37 Alt/SGPT 31 U/L Normal 12-78 Alkaline Phosphatase 100 U/L Normal 45-117 Bilirubin,Total 0.4 mg/dL Normal 0.2-1.0 Bilirubin,Direct 0.2 mg/dL Normal 0.0-0.2 Total Protein 7.2 GM/DL Normal 6.4-8.2 Albumin 3.7 GM/DL Normal 3.2-5.2 Albumin/Globulin Ratio 1.1 Normal Renal Profile 07/21/2020 [facility] [address] [place] [address] [phone] Glucose, Fasting 97 mg/dL Normal 70-100 Blood [...] mg/dL Normal 2.5-4.9 Laboratory test finding 07/21/2020 [facility] [address] [place] [address] [phone] Magnesium Level 1.7 mg/dL Low 1.8-2.4 Sirolimus (Rapamune) Other Lab SEE COMMENT Normal FK 506 (Tacrolimus) Other Lab SEE COMMENT Normal 2 Ua Routine 07/21/2020 [facility] [address] [place] [address] [phone] Appearance, Urine CLEAR Normal Clear Color, Urine STRAW Normal Yellow PH,Urine 5.0 units Normal 5.0-9.0 Specific [place] Urine Auto 1.009 Normal 1.002-1.035 Protein, Urine [...] /LPF Normal 0-1 Laboratory test finding 07/21/[address] 1387964 [phone] Creatinine,Random Urine 87.5 mg/dL Normal 3 Total [...] Little GFR Left ESRD GFR <15 on MECHANICAL DESIGN TECHNICIAN 2 Test sent to Reference lab o n 07/21/20 . Specimen processed at [facility] only. No separate report to follow. 3 Urine Source: URINE, CLEAN C ATCH 4 Urine Source: URINE, CLEAN C ATCH 5 FULL REPORT IN LAB NOTES (eC W and Medent). NO GROWTH Procedures Date Code Description Status 09/04/2019 [id number] Colonoscopy Completed 08/22/2017 [id number] Diabetic Retinal Eye Exam [facility] 07/27/2017 [id number] Diabetic Retinal Eye Exam Comple [facility] 02/16/2009 [id number] Colonoscopy Completed 07/12/2005 [id number] Colonoscopy Completed Medical Devices Description No Information Available Encounters Description No Information Available Assessments Date Code Description Provider 08/26/2020 N17.9 [...] 9:40 am - Ernesto Mcguire MD at [facility] * 03/03/2021 9:20 am - Nurse #2 at [facility] * 03/02/2021 8:10 am - Lab Schedule at [facility] * 09/29/2020 8:20 am - Lab Schedule at [facility] 08/26/2020 - Ernesto Mcguire MD* [...]
--- OUTSIDE RECORDS SUMMARY | 2020-11-25 10:08 | CCD | Continuity of Care Document ---
Author Organization Unknown Address Unknown Phone Unavailable Care Team Providers Care Exterior Interior Specialist Name Role Phone Chau Pitt MD AUTM [phone] Ernesto Mcguire JR, MD AUTM Unavailable Christopher Castro MD AUTM Unavailable Taye Sanchez MD AUTM [phone] Binta Solares MD AUTM [phone] Elias Hernandez MD AUTM [phone] Problems Active Problems Provider Date Gout Ernesto [...] Reaction Lot # U-Flu Given 10/17/2019 Influenza,Unspecified 18257 Given 08/13/2019 Pneumovax 23 [id number] U-Flu Given 11/20/2018 Influenza,Unspecified U-PneuC Given 04/24/2018 Prevnar 13 U-PneuC Given 04/24/2018 Prevnar 13 44730 Given 11/23/2017 Influenza Virus Vaccine, Quadrivalent (Cciiv4), Derived From 4 Given 11/18/2016 Influenza Vaccin e Quadrivalent Preser/Antibiotic Free Im Use [id number] Q2037 Given 11/27/2015 Fluvirin Virus Vaccine 16 87051 80493 Given 02/19/2014 PPD 0 mm [id number] 42225 Given 05/16/2012 Zoster Vaccine Vital Signs Date [...] H/L Range Note CBC With Differential 07/21/2020 [facility] [address] [place] [address] [phone] White Blood Count 3.0 10 Low 4.0-10.0 [...] 36.0-66.0 Lymph % 20.2 % Low 24.0-44.0 [place] % 15.2 % High 2.0-8.0 Eos % 1.0 % Normal 0.0-3.0 Baso % 0.3 % Normal 0.0-1.0 Immature Granulocyte % 0.7 % Normal 0-3.0 Nucleated Red Blood Cell % 0.0 % Normal 0-0 Neutrophils # 1.9 10 Normal 1.5-8.5 Lymph # 0.6 10 Low 1.5-5.0 [place] # 0.5 10 Normal 0.0-0.8 Eos # 0.0 10 Normal 0.0-0.5 Baso # 0.0 10 Normal 0.0-0.2 Liver Profile 07/21/2020 [facility] nter [address] [place], [place] 0066[address] [phone] Ast/Sgot 12 U/L Normal 7-37 Alt/SGPT 31 U/L Normal 12-78 Alkaline Phosphatase 100 U/L Normal 45-117 Bilirubin,Total 0.4 mg/dL Normal 0.2-1.0 Bilirubin,Direct 0.2 mg/dL Normal 0.0-0.2 Total Protein 7.2 GM/DL Normal 6.4-8.2 Albumin 3.7 GM/DL Normal 3.2-5.2 Albumin/Globulin Ratio 1.1 Normal Renal Profile 07/21/2020 [facility] [address] [place] [address] [phone] Glucose, Fasting 97 mg/dL Normal 70-100 Blood [...] mg/dL Normal 2.5-4.9 Laboratory test finding 07/21/2020 [facility] [address] [place] [address] [phone] Magnesium Level 1.7 mg/dL Low 1.8-2.4 Sirolimus (Rapamune) Other Lab SEE COMMENT Normal FK 506 (Tacrolimus) Other Lab SEE COMMENT Normal 2 Ua Routine 07/21/2020 [facility] [address] [place] [address] [phone] Appearance, Urine CLEAR Normal Clear Color, Urine STRAW Normal Yellow PH,Urine 5.0 units Normal 5.0-9.0 Specific [place] Urine Auto 1.009 Normal 1.002-1.035 Protein, Urine [...] /LPF Normal 0-1 Laboratory test finding 07/21/2020 [facility] [address] [place], [place] 13657[address] [phone] Creatinine,Random Urine 87.5 mg/dL Normal 3 Total [...] Little GFR Left ESRD GFR <15 on POLICE ACADEMY INSTRUCTOR 2 Test sent to Reference lab o n 07/21/20 . Specimen processed at [facility] only. No separate report to follow. 3 Urine Source: URINE, CLEAN C ATCH 4 Urine Source: URINE, CLEAN C ATCH 5 FULL REPORT IN LAB NOTES (eC W and Medent). NO GROWTH Procedures Date Code Description Status 08/26/2020 32978 Office/Outpatient Established Mo d MDM 30-39 Min Completed 08/26/2020 72479 EKG/Interpretation & Report Comp leted 09/04/2019 [id number] Colonoscopy Completed 08/22/2017 [id number] Diabetic Retinal Eye Exam [facility] 07/27/2017 [id number] Diabetic Retinal Eye Exam [facility] 02/16/2009 [id number] Colonoscopy Completed 07/12/2005 [id number] Colonoscopy Completed Medical Devices Description No Information Available Encounters Type Date Location Provider Dx Diagnosis Office Visit 08/26/2020 9:20a [facility] Ernesto Mcguire MD N17.9 Acute [...] Mcguire MD 08/26/2020 D84.9 Immunodeficiency, unspecified Co slivio Mcguire MD 08/26/2020 N03.9 Chronic nephritic syndrome with unspecified morphologic pride Ernesto Mcguire MD 08/26/2020 E78.00 Pure hypercholesterolemia, unspe cified Ernesto Mcguire MD 08/26/2020 Z86.010 Personal history of colonic poly ps Ernesto Mcguire MD 08/26/2020 E79.0 Hyperuricemia without signs of i nflammatory arthritis and to Ernesto Mcguire MD Plan of Treatment Future Appointment(s):* 03/03/2021 9:40 am - Ernesto Mcguire MD at [facility] * 03/03/2021 9:20 am - Nurse #2 at [facility] * 03/02/2021 8:10 am - Lab Schedule at [facility] * 09/29/2020 8:20 am - Lab Schedule at [facility] 08/26/2020 - Ernesto Mcguire MD* [...]
--- OUTSIDE RECORDS SUMMARY | 2020-11-25 10:08 | CCD ---
Continuity of Care Document (CCD) Created on: 09/16/2020 Pramod Duque External Reference #: [id number] : [id number] Sex: Male Author Author Pramod MCNULTY M.D. Organization Unknown Address [address] [facility], [address] [place] [address] Phone [phone] Care Team Providers Care Nailing Machine Feeder Name Role Phone Ernesto Mcguire MD @ [facility] AUTM Chau Pitt M.D. AUTM [phone] Problems Description No Information Available Social History Type Date Description Comments Sex Unknown ETOH Use 1-2 A Week Recreational Drug Use Denies Drug Use Tobacco Use Start: Unknown Denies Smoking Allergies, Adverse Reactions, Alerts Description No Known Drug Allergies Medications Active Medications SIG Qnty Indications Ordering Provide r Date Atorvastatin Calcium 40mg Tablets Ernesto Mcguire MD @ [facility] Hydralazine HCL 25mg Tablets Chau Pitt M.D. Amlodipine Besylate 5mg Tablets Ernesto Mcguire MD @ [facility] Atenolol 25mg Tablets Ernesto Mcguire MD @ [facility] Allopurinol 100mg Tablets Chau Pitt M.D. Tacrolimus 1mg Capsules Unknown Sirolimus 1mg Tablets Damon Headley M.D. Sodium Bicarbonate 650mg Tablets Take One Tablet By Mouth Twice A Day Unknown Myfortic 360mg Tablets DR 1 tab by mouth twice a day Unknown Vitamin D3 Maximum Strength 125mcg (5000 Ut) Capsules 1 qd Unknown Immunizations Description No Information Available Vital Signs Date Vital Result Comment 08/26/2020 2:57pm BP Systolic 138 mmHg BP Diastolic 84 mmHg Height 70 inches 5'10" Weight 200.25 lb BMI (Body Mass Index) 28.7 kg/m2 [place] Body Weight 166 lb Weight 90.833 kg BSA (Body Surface Area) 2.09 m2 Results Description No Information Available Procedures Date Code Description Status 08/26/2020 50217 Office/Outpatient New Moderate M DM 45-59 Minutes Completed Medical Devices Description No Information Available Encounters Type Date Location Provider Dx Diagnosis Office Visit 08/26/2020 2:45p [facility] Christpoher sanches M.D. Z94.0 Kidney transplant status N18.4 [...] have recommended that he discuss with his flat cutter the level of urgency needed for this [...]
--- OUTSIDE RECORDS SUMMARY | 2020-11-25 10:08 | CCD | Continuity of Care Document ---
Author Author Lab Schedule, Pramod Bone Organization Unknown Address [address] [address] Phone Unavailable Care Team Providers Care Manufacturing Technician Name Role Phone Chau Pitt MD AUTM [phone] Ernesto Mcguire JR, MD AUTM Unavailable Christpoher Castro MD AUTM Unavailable Taye Sanchez MD AUTM [phone] Binta Solares MD AUTM [phone] Elias Hernandez MD AUTM [phone] Problems Active Problems Provider Date Gout Ernesto [...] Reaction Lot # U-Flu Given 10/17/2019 Influenza,Unspecified [id number] Given 08/13/2019 Pneumovax 23 [id number] U-Flu Given 11/20/2018 Influenza,Unspecified U-PneuC Given 04/24/2018 Prevnar 13 U-PneuC Given 04/24/2018 Prevnar 13 24942 Given 11/23/2017 Influenza Virus Vaccine, Quadrivalent (Cciiv4), Derived From 7 Given 11/18/2016 Influenza Vaccin e Quadrivalent Preser/Antibiotic Free Im Use [id number] Given 11/27/2015 Fluvirin Virus Vaccine 16 [id number] Given 02/19/2014 PPD 0 mm [id number] Given 05/16/2012 Zoster Vaccine Vital Signs Date [...] H/L Range Note Laboratory test finding 09/29/2020 [employer] Bank[employer] nelda willoughby Auto Painter Helper: [place] [address] [phone] PSA <pending> CBC With Differential 07/21/2020 [place] [id number] [place] [id number] [phone] White Blood Count 3.0 10 Low 4.0-10.0 [...] 36.0-66.0 Lymph % 20.2 % Low 24.0-44.0 [place] % 15.2 % High 2.0-8.0 Eos % 1.0 % Normal 0.0-3.0 Baso % 0.3 % Normal 0.0-1.0 Immature Granulocyte % 0.7 % Normal 0-3.0 Nucleated Red Blood Cell % 0.0 % Normal 0-0 Neutrophils # 1.9 10 Normal 1.5-8.5 Lymph # 0.6 10 Low 1.5-5.0 [place] # 0.5 10 Normal 0.0-0.8 Eos # 0.0 10 Normal 0.0-0.5 Baso # 0.0 10 Normal 0.0-0.2 Liver Profile 07/21/[address] [id number] [phone] Ast/Sgot 12 U/L Normal 7-37 Alt/SGPT 31 U/L Normal 12-78 Alkaline Phosphatase 100 U/L Normal 45-117 Bilirubin,Total 0.4 mg/dL Normal 0.2-1.0 Bilirubin,Direct 0.2 mg/dL Normal 0.0-0.2 Total Protein 7.2 GM/DL Normal 6.4-8.2 Albumin 3.7 GM/DL Normal 3.2-5.2 Albumin/Globulin Ratio 1.1 Normal Renal Profile 07/21/[address] [address] [phone] Glucose, Fasting 97 mg/dL Normal 70-100 Blood [...] mg/dL Normal 2.5-4.9 Laboratory test finding 07/21/[address] [address] [phone] Magnesium Level 1.7 mg/dL Low 1.8-2.4 Sirolimus (Rapamune) Other Lab SEE COMMENT Normal FK 506 (Tacrolimus) Other Lab SEE COMMENT Normal 2 Ua Routine 07/21/[address] [address] [phone] Appearance, Urine CLEAR Normal Clear Color, Urine STRAW Normal Yellow PH,Urine 5.0 units Normal 5.0-9.0 Specific [place] Urine Auto 1.009 Normal 1.002-1.035 Protein, Urine [...] /LPF Normal 0-1 Laboratory test finding 07/21/2020 [place] [address] [place], [place] [id number] [phone] Creatinine,Random Urine 87.5 mg/dL Normal 3 Total [...] Little GFR Left ESRD GFR <15 on BICYCLE MESSENGER 2 Test sent to Reference lab o n 07/21/20 . Specimen processed at [facility] only. No separate report to follow. 3 Urine Source: URINE, CLEAN C ATCH 4 Urine Source: URINE, CLEAN C ATCH 5 FULL REPORT IN LAB NOTES (eC W and Medent). NO GROWTH Procedures Date Code Description Status 08/26/2020 21711 Office/Outpatient Established Mo d MDM 30-39 Min Completed 08/26/2020 68948 EKG/Interpretation & Report Comp leted 09/04/2019 [id number] Colonoscopy Completed 08/22/2017 [id number] Diabetic Retinal Eye Exam [facility] 07/27/2017 [id number] Diabetic Retinal Eye Exam [facility] 02/16/2009 [id number] Colonoscopy Completed 07/12/2005 [id number] Colonoscopy Completed Medical Devices Description No Information Available Encounters Type Date Location Provider Dx Diagnosis Office Visit 08/26/2020 9:20a [facility] Ernesto Mcguire MD N17.9 Acute [...] 9:40 am - Ernesto Mcguire MD at [facility] * 03/03/2021 9:20 am - Nurse #2 at [facility] * 03/02/2021 8:10 am - Lab Schedule at [facility] 08/26/2020 - Ernesto Mcguire MD* [...]
--- OUTSIDE RECORDS SUMMARY | 2020-11-25 10:08 | CCD | Continuity of Care Document ---
Author Author Lab Schedule, Pramod Bone Organization Unknown Address [address] [address] Phone Unavailable Care Team Providers Care Senior Linux Unix Administrator Name Role Phone Chau Pitt MD AUTM [phone] Ernesto Mcguire JR, MD AUTM Unavailable Christopher Castro MD AUTM Unavailable Taye Sanchez MD AUTM [phone] Binta Solares MD AUTM [phone] Elias Hernandez MD AUTM [phone] Problems Active Problems Provider Date Gout Ernesto [...] Reaction Lot # U-Flu Given 10/17/2019 Influenza,Unspecified 17107 Given 08/13/2019 Pneumovax 23 [id number] U-Flu Given 11/20/2018 Influenza,Unspecified U-PneuC Given 04/24/2018 Prevnar 13 U-PneuC Given 04/24/2018 Prevnar 13 16317 Given 11/23/2017 Influenza Virus Vaccine, Quadrivalent (Cciiv4), Derived From 7 Given 11/18/2016 Influenza Vaccin e Quadrivalent Preser/Antibiotic Free Im Use [id number] Given 11/27/2015 Fluvirin Virus Vaccine 16 [id number] 01628 Given 02/19/2014 PPD 0 mm [id number] Given 05/16/2012 Zoster Vaccine Vital Signs Date [...] H/L Range Note Laboratory test finding 09/29/2020 [employer] nelda 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: [place] [address] [phone] PSA <pending> CBC With Differential 07/21/2020 [place] [address] [place] [address]301 [phone] White Blood Count 3.0 10 Low 4.0-10.0 [...] 36.0-66.0 Lymph % 20.2 % Low 24.0-44.0 [place] % 15.2 % High 2.0-8.0 Eos % 1.0 % Normal 0.0-3.0 Baso % 0.3 % Normal 0.0-1.0 Immature Granulocyte % 0.7 % Normal 0-3.0 Nucleated Red Blood Cell % 0.0 % Normal 0-0 Neutrophils # 1.9 10 Normal 1.5-8.5 Lymph # 0.6 10 Low 1.5-5.0 [place] # 0.5 10 Normal 0.0-0.8 Eos # 0.0 10 Normal 0.0-0.5 Baso # 0.0 10 Normal 0.0-0.2 Liver Profile 07/21/[address] 7239860 [phone] Ast/Sgot 12 U/L Normal 7-37 Alt/SGPT 31 U/L Normal 12-78 Alkaline Phosphatase 100 U/L Normal 45-117 Bilirubin,Total 0.4 mg/dL Normal 0.2-1.0 Bilirubin,Direct 0.2 mg/dL Normal 0.0-0.2 Total Protein 7.2 GM/DL Normal 6.4-8.2 Albumin 3.7 GM/DL Normal 3.2-5.2 Albumin/Globulin Ratio 1.1 Normal Renal Profile 07/21/[address] [address] [phone] Glucose, Fasting 97 mg/dL Normal 70-100 Blood [...] mg/dL Normal 2.5-4.9 Laboratory test finding 07/21/[address] [address] [phone] Magnesium Level 1.7 mg/dL Low 1.8-2.4 Sirolimus (Rapamune) Other Lab SEE COMMENT Normal FK 506 (Tacrolimus) Other Lab SEE COMMENT Normal 2 Ua Routine 07/21/[address] [address] [phone] Appearance, Urine CLEAR Normal Clear Color, Urine STRAW Normal Yellow PH,Urine 5.0 units Normal 5.0-9.0 Specific [place] Urine Auto 1.009 Normal 1.002-1.035 Protein, Urine [...] /LPF Normal 0-1 Laboratory test finding 07/21/2020 [place] [address] [place], [place] [id number] [phone] Creatinine,Random Urine 87.5 mg/dL Normal 3 Total [...] Little GFR Left ESRD GFR <15 on 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 Specimen processed at [facility] only. No separate report to follow. 3 Urine Source: URINE, CLEAN C ATCH 4 Urine Source: URINE, CLEAN C ATCH 5 FULL REPORT IN LAB NOTES (eC W and Medent). NO GROWTH Procedures Date Code Description Status 08/26/2020 72863 Office/Outpatient Established Mo d MDM 30-39 Min Completed 08/26/2020 23507 EKG/Interpretation & Report Comp leted 09/04/2019 [id number] Colonoscopy Completed 08/22/2017 [id number] Diabetic Retinal Eye Exam [facility] 07/27/2017 [id number] Diabetic Retinal Eye Exam [facility] 02/16/2009 [id number] Colonoscopy Completed 07/12/2005 [id number] Colonoscopy Completed Medical Devices Description No Information Available Encounters Type Date Location Provider Dx Diagnosis Office Visit 08/26/2020 9:20a [facility] Ernesto Mcguire MD N17.9 Acute [...] 9:40 am - Ernesto Mcguire MD at [facility] * 03/03/2021 9:20 am - Nurse #2 at [facility] * 03/02/2021 8:10 am - Lab Schedule at [facility] 08/26/2020 - Ernesto Mcguire MD* [...]
--- OUTSIDE RECORDS SUMMARY | 2020-11-25 10:09 | CCD ---
Author Author [facility] Organization [facility] Address Unknown Phone Unavailable Care Team Providers Care Operation Research Analyst Name Role Phone Rcio STEINBERG Unavailable Unavailable Jaclyn YUSUF Unavailable Unavailable Thankachan, Reeba MEMBER OF PARLIAMENT Unavailable Unavailable Thankachan, Reeba MEMBER OF PARLIAMENT Unavailable Unavailable Thankachan, Reeba MEMBER OF PARLIAMENT Unavailable Unavailable Thankachan, Reeba MEMBER OF PARLIAMENT Unavailable Unavailable Thankachan, Reeba MEMBER OF PARLIAMENT Unavailable Unavailable Thankachan, Reeba MEMBER OF PARLIAMENT Unavailable Unavailable Thankachan, Reeba MEMBER OF PARLIAMENT Unavailable Unavailable Thankachan, Reeba MEMBER OF PARLIAMENT Unavailable Unavailable Thankachan, Reeba MEMBER OF PARLIAMENT Unavailable Unavailable Thankachan, Reeba MEMBER OF PARLIAMENT Unavailable Unavailable Thankachan, Reeba MEMBER OF PARLIAMENT Unavailable Unavailable Thankachan, Reeba MEMBER OF PARLIAMENT Unavailable Unavailable Thankachan, Reeba MEMBER OF PARLIAMENT Unavailable Unavailable Thankachan, Reeba MEMBER OF PARLIAMENT Unavailable Unavailable Thankachan, Reeba MEMBER OF PARLIAMENT Unavailable Unavailable Thankachan, Reeba MEMBER OF PARLIAMENT Unavailable Unavailable Thankachan, Reeba MEMBER OF PARLIAMENT Unavailable Unavailable Thankachan, Reeba MEMBER OF PARLIAMENT Unavailable Unavailable Thankachan, Reeba MEMBER OF PARLIAMENT Unavailable Unavailable Thankachan, Reeba MEMBER OF PARLIAMENT Unavailable Unavailable Thankachan, Reeba MEMBER OF PARLIAMENT Unavailable Unavailable Thankachan, Reeba MEMBER OF PARLIAMENT Unavailable Unavailable Thankachan, Reeba MEMBER OF PARLIAMENT Unavailable Unavailable Thankachan, Reeba MEMBER OF PARLIAMENT Unavailable Unavailable Thankachan, Reeba MEMBER OF PARLIAMENT Unavailable Unavailable Thankachan, Reeba MEMBER OF PARLIAMENT Unavailable Unavailable Thankachan, Reeba MEMBER OF PARLIAMENT Unavailable Unavailable Thankachan, Reeba MEMBER OF PARLIAMENT Unavailable Unavailable Thankachan, Reeba MEMBER OF PARLIAMENT Unavailable Unavailable Thankachan, Reeba MEMBER OF PARLIAMENT Unavailable Unavailable Thankachan, Reeba MEMBER OF PARLIAMENT Unavailable Unavailable Thankachan, Reeba MEMBER OF PARLIAMENT Unavailable Unavailable Thankachan, Reeba MEMBER OF PARLIAMENT Unavailable Unavailable Thankachan, Reeba MEMBER OF PARLIAMENT Unavailable Unavailable Thankachan, Reeba MEMBER OF PARLIAMENT Unavailable Unavailable Thankachan, Reeba MEMBER OF PARLIAMENT Unavailable Unavailable Thankachan, Reeba MEMBER OF PARLIAMENT Unavailable Unavailable Thankachan, Reeba MEMBER OF PARLIAMENT Unavailable Unavailable Thankachan, Reeba MEMBER OF PARLIAMENT Unavailable Unavailable Thankachan, Reeba MEMBER OF PARLIAMENT Unavailable Unavailable Thankachan, Reeba MEMBER OF PARLIAMENT Unavailable Unavailable Thankachan, Reeba MEMBER OF PARLIAMENT Unavailable Unavailable Thankachan, Reeba MEMBER OF PARLIAMENT Unavailable Unavailable Thankachan, Reeba MEMBER OF PARLIAMENT Unavailable Unavailable Thankachan, Reeba MEMBER OF PARLIAMENT Unavailable Unavailable Thankachan, Reeba MEMBER OF PARLIAMENT Unavailable Unavailable Thankachan, Reeba MEMBER OF PARLIAMENT Unavailable Unavailable Thankachan, Reeba MEMBER OF PARLIAMENT Unavailable Unavailable Rico Mcguire MD Unavailable Unavailable Rico Mcguire MD Unavailable Unavailable Rico Mcguire MD Unavailable Unavailable Rico Mcguire MD Unavailable Unavailable Rico Mcguire MD Unavailable Unavailable Rico Mcguire MD Unavailable Unavailable Rico Mcguire MD Unavailable Unavailable Rico Mcguire MD Unavailable Unavailable Rico Mcguire MD Unavailable Unavailable Rico Mcguire MD Unavailable Unavailable Rico Mcguire MD Unavailable Unavailable Rico Mcguire MD Unavailable Unavailable Rico Mcguire MD Unavailable Unavailable Rico Mcguire MD Unavailable Unavailable Rico Mcguire MD Unavailable Unavailable Rico Mcguire MD Unavailable Unavailable Rico Mcguire MD Unavailable Unavailable Rico Mcguire MD Unavailable Unavailable Rico Mcguire MD Unavailable Unavailable Rico Mcguire MD Unavailable Unavailable Rico Mcguire MD Unavailable Unavailable Rico Mcguire MD Unavailable Unavailable Rico Mcguire MD Unavailable Unavailable Rico Mcguire MD Unavailable Unavailable Rico Mgcuire MD Unavailable Unavailable Rico Mcguire MD Unavailable Unavailable Rico Mcguire MD Unavailable Unavailable DelawareRico ríos MD Unavailable Unavailable Rico Mcguire MD Unavailable Unavailable ShaylaRico MD Unavailable Unavailable DelawareRico MD Unavailable Unavailable DelawareRico MD Unavailable Unavailable DelawareRico MD Unavailable Unavailable DelawareRico MD Unavailable Unavailable DelawareRico MD Unavailable Unavailable DelawareRico MD Unavailable Unavailable ShaylaRico MD Unavailable Unavailable ShaylaRico MD Unavailable Unavailable DelawareRico MD Unavailable Unavailable DelawareRico MD Unavailable Unavailable DelawareRico MD Unavailable Unavailable ShaylaRico MD Unavailable Unavailable ShaylaRico MD Unavailable Unavailable ShaylaRico MD Unavailable Unavailable ShaylaRico MD Unavailable Unavailable ShaylaRico MD Unavailable Unavailable ShaylaRico MD Unavailable Unavailable ShaylaRico MD Unavailable Unavailable DelawareRico MD Unavailable Unavailable DelawareRcio MD Unavailable Unavailable DelawareRico MD Unavailable Unavailable ShaylaRico MD Unavailable Unavailable ShaylaRico MD Unavailable Unavailable ShaylaRico MD Unavailable Unavailable DelawareRico MD Unavailable Unavailable DelawareRico MD Unavailable Unavailable DelawareRico MD Unavailable Unavailable ShaylaRico MD Unavailable Unavailable DelawareRico MD Unavailable Unavailable DelawareRico MD Unavailable Unavailable DelawareRico MD Unavailable Unavailable DelawareRico MD Unavailable Unavailable ShaylaRico MD Unavailable Unavailable DelawareRico MD Unavailable Unavailable DelawareRico ríos MD Unavailable Unavailable ShaylaRico MD Unavailable Unavailable DelawareRico MD Unavailable Unavailable ShaylaRico MD Unavailable Unavailable ShaylaRico MD Unavailable Unavailable ShaylaRico MD Unavailable Unavailable ShaylaRico MD Unavailable Unavailable DelawareRico MD Unavailable Unavailable DelawareRico MD Unavailable Unavailable DelawareRico MD Unavailable Unavailable DelawareRico MD Unavailable Unavailable ShaylaRico MD Unavailable Unavailable ShaylaRico MD Unavailable Unavailable ShaylaRico MD Unavailable Unavailable ShaylaRico MD Unavailable Unavailable DelawareRico MD Unavailable Unavailable DelawareRico MD Unavailable Unavailable HsaylaRico MD Unavailable Unavailable DelawareRico MD Unavailable Unavailable ShaylaRico MD Unavailable Unavailable ShaylaRico MD Unavailable Unavailable Rico Mcguire MD Unavailable Unavailable Bill ASHTON Unavailable Unavailable Jose, F Mejia Unavailable Jose, F Mejia Unavailable Jose, F Mejia Unavailable Jose, F Mejia Unavailable Jose, F Mejia Unavailable Jose, F Mejia Unavailable Jose, F Mejia Unavailable Jose, F Mejia Unavailable Jose, F Mejia Unavailable Jose, F Mejia Unavailable Shaban, M Eman Unavailable Shaban, M Eman Unavailable Shaban, M Eman Unavailable Shaban, M Eman Unavailable Shaban, M Eman Unavailable Shaban, M Eman Unavailable Shaban, M Eman Unavailable Shaban, M Eman Unavailable SHANDA GONZALEZ MD Unavailable Unavailable SHANDA GONZALEZ MD Unavailable Unavailable SHANDA GONZALEZ MD Unavailable Unavailable SHANDA GONZALEZ MD Unavailable Unavailable SHANDA GONZALEZ MD Unavailable Unavailable SHANDA GONZALEZ MD Unavailable Unavailable SHANDA GONZALEZ MD Unavailable Unavailable SHANDA GONZALEZ MD Unavailable Unavailable SHANDA GONZALEZ MD Unavailable Unavailable SHANDA GONZALEZ MD Unavailable Unavailable SHANDA GONZALEZ MD Unavailable Unavailable SHANDA GONZALEZ MD Unavailable Unavailable SHANDA GONZALEZ MD Unavailable Unavailable SHANDA GONZALEZ MD Unavailable Unavailable SHANDA GONZALEZ MD Unavailable Unavailable SHANDA GONZALEZ MD Unavailable Unavailable SHANDA GONZALEZ MD Unavailable Unavailable SHANDA GONZALEZ MD Unavailable Unavailable NARSIPUR, SHANDA Unavailable Unavailable NARSIPHILARIO, SHANDA MD Unavailable Unavailable NARSIPUR, SHANDA MD Unavailable Unavailable NARSIPUR, SHANDA MD Unavailable Unavailable NARSIPUR, SHANDA MD Unavailable Unavailable NARSIPUR, SHANDA MD Unavailable Unavailable NARSIPUR, SHANDA MD Unavailable Unavailable NARSIPUR, SHANDA MD Unavailable Unavailable NARSIPUR, SHANDA MD Unavailable Unavailable NARSIPUR, SHANDA MD Unavailable Unavailable NARSIPUR, SHANDA MD Unavailable Unavailable NARSIPUR, SHANDA MD Unavailable Unavailable NARSIPUR, SHANDA MD Unavailable Unavailable NARSIPUR, SHANDA MD Unavailable Unavailable NARSIPUR, SHANDA MD Unavailable Unavailable NARSIPUR, SHANDA MD Unavailable Unavailable NARSIPHILARIO, SHANDA MD Unavailable Unavailable NARSIPHILARIO, SHANDA MD Unavailable Unavailable NARSIPHILARIO, SHANDA MD Unavailable Unavailable NARSIPHILARIO, SHANDA MD Unavailable Unavailable NARSIPHILARIO, SHANDA MD Unavailable Unavailable LILLYSIPHILARIO, SHANDA Unavailable Unavailable LILLYSIDESI, SHANDA MD Unavailable Unavailable Nat FREY MD Unavailable Unavailable Nat FREY MD Unavailable Unavailable Nat FREY MD Unavailable Unavailable Nat FREY MD Unavailable Unavailable Nat FREY MD Unavailable Unavailable Nat FREY MD Unavailable Unavailable Nat FREY MD Unavailable Unavailable Nat FREY MD Unavailable Unavailable Nat FREY MD Unavailable Unavailable Nat FREY MD Unavailable Unavailable Jesus MCNULTY MD Unavailable Unavailable Jesus MCNULTY MD Unavailable Unavailable Jesus MCNULTY MD Unavailable Unavailable Jesus MCNULTY MD Unavailable Unavailable Jesus MCNULTY MD Unavailable Unavailable Jesus MCNULTY MD Unavailable Unavailable Jesus MCNULTY MD Unavailable Unavailable Jesus MCNULTY MD Unavailable Unavailable Jesus MCNULTY MD Unavailable Unavailable Jesus MCNULTY MD Unavailable Unavailable Jesus MCNULTY MD Unavailable Unavailable Jesus MCNULTY MD Unavailable Unavailable Jesus MCNULTY MD Unavailable Unavailable Jesus MCNULTY MD Unavailable Unavailable Jesus MCNULTY MD Unavailable Unavailable Jesus MCNULTY MD Unavailable Unavailable Jesus MCNULTY MD Unavailable Unavailable Jesus MCNULTY MD Unavailable Unavailable Jesus MCNULTY MD Unavailable Unavailable Jesus MCNULTY MD Unavailable Unavailable PRICILA, Jesus LOYD MD Unavailable Unavailable PRICILA, Jesus LOYD MD Unavailable Unavailable PRICILA, Jesus LOYD MD Unavailable Unavailable PRICILA, Jesus OLYD MD Unavailable Unavailable PRICILA, Jesus LOYD MD Unavailable Unavailable PRICILA, Jesus LOYD MD Unavailable Unavailable PRICILA, Jesus LOYD MD Unavailable Unavailable PRICILA, Jesus LOYD MD Unavailable Unavailable PRICILA, Jesus LOYD MD Unavailable Unavailable PRICILA, Jesus LOYD MD Unavailable Unavailable PRICILA, Jesus LOYD MD Unavailable Unavailable PRICILA, Jesus LOYD MD Unavailable Unavailable PRICILA, Jesus LOYD MD Unavailable Unavailable PRICILA, Jesus LOYD MD Unavailable Unavailable PRICILA, Jesus LOYD MD Unavailable Unavailable PRICILA, Jesus LOYD MD Unavailable Unavailable PRICILA, Jesus LOYD MD Unavailable Unavailable PRICILA, Jesus LOYD MD Unavailable Unavailable PRICILA, Jesus LOYD MD Unavailable Unavailable PRICILA, Jesus LOYD MD Unavailable Unavailable PRICILA, Jesus LOYD MD Unavailable Unavailable PRICILA, Jesus LOYD MD Unavailable Unavailable PRICILA, Jesus LOYD MD Unavailable Unavailable PODOLAK, A THANG Unavailable Unavailable PODOLAK, A THANG Unavailable Unavailable PODOLAK, A THANG Unavailable Unavailable PODOLAK, A THANG Unavailable Unavailable Cesar KEN Unavailable Unavailable MD Jaclyn Yusuf MD Unavailable MD Jaclyn Yusuf MD Unavailable + MD Jaclyn Yusuf MD Unavailable + MD Jaclyn Yusuf MD Unavailable + MD Jaclyn Yusuf MD Unavailable + MD Jaclyn Yusuf MD Unavailable + MD Jaclyn Yusuf MD Unavailable + MD Jaclyn Yusuf MD Unavailable + MD Jaclyn Yusuf MD Unavailable + MD Jaclyn Yusuf MD Unavailable + MD Jaclyn Yusuf MD Unavailable + MD Jaclyn Yusuf MD Unavailable + MD Jaclyn Yusuf MD Unavailable + MD Jaclyn Yusuf MD Unavailable + MD Jaclyn Yusuf MD Unavailable MD Jaclyn Yusuf MD Unavailable MD Jaclyn Yusuf MD Unavailable MD Jaclyn Yusuf MD Unavailable MD Jaclyn Yusuf MD Unavailable MD Jaclyn Yusuf MD Unavailable MD Jaclyn Yusuf MD Unavailable MD Jaclyn Yusuf MD Unavailable MD Jaclyn Yusuf MD Unavailable MD Jaclyn Yusuf MD Unavailable MD Jaclyn Yusuf MD Unavailable MD Jaclyn Yusuf MD Unavailable MD Jaclyn Yusuf MD Unavailable MD Jaclyn Yusuf MD Unavailable Maggy JUDD Unavailable Unavailable Re-disclosure Warning The records that you are about to access may contain information from federally-assisted alcohol or drug abuse programs. If such information is present, then the following federally mandated warning applies: This information has been disclosed to you from records protected by federal confidentiality rules (42 CFR part 2). The federal rules prohibit you from making any further disclosure of this information unless further disclosure is expressly permitted by the written consent of the person to whom it pertains or as otherwise permitted by 42 CFR part 2. A general authorization for the release of medical or other information is NOT sufficient for this purpose. The Federal rules restrict any use of the information to criminally investigate or prosecute any alcohol or drug abuse patient.The records that you are about to access may contain highly sensitive health information, the redisclosure of which is protected by Article 27-F of the [facility] Public Health law. If you continue you may have access to information: Regarding HIV / AIDS; Provided by facilities licensed or operated by the [facility] Office of Mental Health; or Provided by the [place] State Office for People With Developmental Disabilities. If such information is present, then the following [facility] mandated warning applies: This information has been disclosed to you from confidential records which are protected by state law. State law prohibits you from making any further disclosure of this information without the specific written consent of the person to whom it pertains, or as otherwise permitted by law. Any unauthorized further disclosure in violation of state law may result in a fine or halfway sentence or both. A general authorization for the release of medical or other information is NOT sufficient authorization for further disc losure. Allergies and Adverse Reactions Type Description Substance Reaction Status Data Source(s ) Propensity to adverse reactions NO KNOWN ALLERGIES NO KNOWN ALLERGIES [facility] Encounters Encounter Providers Location Date Indications Data Source(s ) Outpatient Attender: Alisha Sanabria NP 10/28/2021 12:00: 00 AM EDT [facility] Outpatient Attender: SHANDA GONZALEZ MD 10/26/2021 12:00:0 0 AM EDT [facility] Outpatient Attender: JONES Stearns er: MD Jones Yusuf MDReferrer: JONES YUSUF 11/24/2020 12:00:00 AM EDT Encounter for other preprocedural examination [facility] Encounter for other preprocedural examin ation Outpatient Attender: JONES Stearns er: MD Jones CHRISTINEeferrer: JONES YUSUF 11/24/2020 12:00:00 AM EDT [facility] Outpatient Attender: MD Jones Yusuf MD Attender: JONES YUSUFReferrer: JONES YUSUF 11/24/2020 12:00:00 AM EDT Encounter for other preprocedural examination [facility] Encounter for other preprocedural examin ation Outpatient Attender: MD Jones Yusuf MD Attender: JONES YUSUFReferrer: JONES YUSUF 11/24/2020 12:00:00 AM EDT Encounter for other preprocedural examination [facility] Encounter for other preprocedural examin ation Outpatient Attender: JONES Stearns er: MD Jones Yusuf MDReferrer: JONES YUSUF 11/24/2020 12:00:00 AM EDT [facility] Outpatient Attender: Nathen KenAttender: NATHEN KENReferr er: NATHEN KEN 11/24/2020 12:00:00 AM EDT [facility] Outpatient Attender: Nathen KenAttender: NATHEN KENRefkayli er: NATHEN KEN 11/13/2020 12:00:00 AM EDT [facility] Outpatient Attender: JONSE YUSUF A-[id number] 11/04/2020 09:25:59 AM EDT [facility] Outpatient Attender: Nathen KenAttender: NATHEN KEN [id number] 10/29/2020 12:00:00 AM EDT - 10/30/2020 12:00:00 AM EDT Encounter for other preprocedural examination [facility] Encounter for other preprocedural examin ation Outpatient Attender: THANG GARCIA -XXUHTRNP 10/30/19 12:00:00 AM EDT - 10/29/2020 12:21:59 PM EDT [facility] Outpatient Referrer: NATHEN SUELLEN 10/29/2020 12:00:00 AM EDT Encounter for other preprocedural examination [facility] Encounter for other preprocedural examin ation Outpatient Attender: SHANDA GONZALEZ MDReferrer: SR HERMILO GONZALEZ MD -[id number] 10/20/2020 12:00:00 AM EDT - 10/20/2020 02:14:28 PM T [facility] Outpatient Attender: DELLA ASHTONReferrer: SHANDA Martines -XXUHTRNP 10/20/2020 12:00:00 AM EDT [facility] Outpatient [address] [facility] [id number] 10/05/2020 12:00:00 AM EDT [facility] ([facility]) Outpatient Attender: RACH Pritchard/Obed/Lito/Hortensia wagner 08/26/2020 02:45:00 PM EDT [facility] ([facility]) Outpatient Attender: Ernesto Carrasquillo 0 08/26/2020 09:20:00 AM EDT [facility] ([facility] ) Outpatient Attender: Mejia Paulino : MEJIA Paulino: SURINDER FREY MDAdmitter: DIANA CROWDERBAZOVReferrer: SHANDA GONZALEZ MD [id number] 08/19/2020 12:00:00 AM EDT - 08/19/2020 03:05:00 PM EDT Other specified abnormal findings of blood chemistry [facility] Other specified abnormal findings of blo od chemistry Patient discharged. Outpatient Referrer: SHANDA GONZALEZ MD 07/31/2020 1 2:00:00 AM EDT Other specified abnormal findings of blood chemistry [facility] Other specified abnormal findings of blo od chemistry Outpatient Referrer: JONES YUSUF 07/22/2020 09:38:0 0 AM EDT Kidney transplant status [facility] Kidney transplant status Outpatient Attender: SHANDA GONZALEZ MD 07/22/2020 12:00:0 0 AM EDT [facility] Outpatient Attender: SHANDA GONZALEZ MDReferrer: SHANDA ROMERO MD 07/21/2020 12:00:00 AM EDT - 07/22/2020 12:00:00 AM EDT No diagnosis [facility] No diagnosis Outpatient Attender: SHANDA GONZALEZ MD [id number] 09/2019 12:00:00 AM EDT - 10/15/2019 01:39:59 PM EDT Kidney transplant status [facility] Kidney transplant status Immunizations Vaccine Date Status Description Data Source(s) COVID-19 VACCINE Moderna 09/29/2020 12:00:00 AM EDT completed [facility] Vaccine Series Complete: YESThis Data wa s Submitted to [facility] Via [employer]. COVID-19 VACCINE Moderna 04/07/2020 12:00:00 AM EST completed [facility] Vaccine Series Complete: YESThis Data wa s Submitted to [facility] [employer]. COVID-19 VACCINE Moderna 03/10/2020 12:00:00 AM EST completed [facility] Vaccine Series Complete: NOThis Data was Submitted to [facility] [employer]. This CVX code allows reporting of a vacc ination when formulation is unknown (for example, when recording a Influenza vaccination when noted on a vaccination card) 10/17/2019 02:53:00 PM EDT completed MED[facility] T ([facility]) Medications Medication Brand Name Start Date Product Form Dose Route Admi nistrative Instructions Pharmacy Instructions Status Indications Reaction Description Data Source(s) 60 mcg (15 mcg x 4)/0.5 mL 11/03/2020 12:00:00 AM EDT syring e 0 INJECT INTO THE LEFT ARM INJECT INTO THE LEFT ARM SOLD: 11/03/2020 [facility] 325 mg (65 mg iron) 10/06/2020 12:00:00 AM EDT tablet 90 TAKE ONE TABLET BY MOUTH EVERY DAY TAKE ONE TABLET BY MOUTH EVERY DAY SOLD: 10/08/2020 [facility] 650 mg 09/09/2020 12:00:00 AM EDT tablet 270 TAKE ONE TABLET BY MOUTH THREE TIMES A DAY TAKE ONE TABLET BY MOUTH THREE TIMES A DAY SOLD: 09/11/2020 [facility] Hydrochlorothiazide 25 MG Oral Tablet Hydrochlorothiazide 12:00:00 AM EDT ORAL active [facility] ([facility]) 500 mg 08/24/2020 12:00:00 AM EDT capsule 4 TAKE FOUR CAPSULES BY MOUTH 1 HOUR BEFORE PROCEDURE TAKE FOUR CAPSULES BY MOUTH 1 HOUR BEFORE PROCEDURE SO LD: 08/29/2020 [facility] Tacrolimus 1 MG Oral Capsule Tacrolimus 1 MG Oral Caps ule (PROGRAF) Tacrolimus 1 MG Oral Capsule (PROGRAF) 08/24/2020 12:00:00 AM EDT 1 mg Oral active Kidney replaced by transplant Take 1 capsule by mouth Two Ti mes Daily [facility] Kidney replaced by transplant lidocaine (PF) (XYLOCAINE) 2 % injection [id number] 08/19/2020 11:41: 14 AM EDT completed Code/Trauma Medicati on, Starting on Mon08/19/20 at 1141 [facility] Medication administered onsite 650 mg 07/16/2020 12:00:00 AM EDT tablet 180 TAKE ONE TABLET BY MOUTH TWICE A DAY TAKE ONE TABLET BY MOUTH TWICE A DAY SOLD: 07/18/2020 [facility] 500 mg 05/04/2020 12:00:00 AM EDT capsule 4 TAKE FOUR CAPSULES BY MOUTH 1 HOUR BEFORE PROCEDURE TAKE FOUR CAPSULES BY MOUTH 1 HOUR BEFORE PROCEDURE SO LD: 05/04/2020 [facility] Sirolimus 1 MG Oral Tablet Sirolimus 1 MG Oral Tablet (RAPAMUNE) Sirolimus 1 MG Oral Tablet (RAPAMUNE) 04/28/2020 12:00:00 AM EDT active Kidney replaced by transplant TAKE 2 TABLETS BY MOUTH ONCE DAILY [facility] Kidney replaced by transplant Covid-19 vaccine, Unspecified 03/10/2020 12:00:00 AM EST completed [facility] ([facility]) Medication administered onsite Tacrolimus 1 MG Oral Capsule Tacrolimus 1 MG Oral Caps ule (PROGRAF) Tacrolimus 1 MG Oral Capsule (PROGRAF) 02/28/2020 12:00:00 AM EST 1 mg Oral aborted Kidney replaced by transplant Take 1 capsule by mouth Two Ti mes Daily [facility] Kidney replaced by transplant Atenolol 25 MG Oral Tablet Atenolol 25 MG Oral Tablet (TENORMIN) Atenolol 25 MG Oral Tablet (TENORMIN) 02/28/2020 12:00:00 AM EST 25 mg Oral active Kidney replaced by transplant Take 1 tablet by mouth Two Times July y [facility] Kidney replaced by transplant Mycophenolic Acid 180 MG Delayed Release Oral Tablet Mycophenolate Sodium 180 MG Oral Tablet Delayed Release (MYFORTIC) Mycophenolate Sodium 180 MG Oral Tablet Delayed Release (MYFORTIC) 02/28/2020 12:00:00 AM EST 360 mg Oral aborted Take 2 tablets by mouth Two Times Daily [facility] Sirolimus 1 MG Oral Tablet Sirolimus 1 MG Oral Tablet (RAPAMUNE) Sirolimus 1 MG Oral Tablet (RAPAMUNE) 03/22/2019 12:00:00 AM EST 2 mg Oral active Kidney replaced by transplant Take 2 tablets by mouth daily [facility] Kidney replaced by transplant Mycophenolic Acid 180 MG Delayed Release Oral Tablet Mycophenolate Sodium 180 MG Oral Tablet Delayed Release (MYFORTIC) Mycophenolate Sodium 180 MG Oral Tablet Delayed Release (MYFORTIC) 12/28/2018 12:00:00 AM EST 360 mg Oral active Take 2 tablets by mouth Two Times Daily [facility] Losartan Potassium 25 MG Oral Tablet losartan (COZAAR) 25 MG tablet losartan (COZAAR) 25 MG tablet 09/16/2016 12:00:00 AM EDT a [facility] Amlodipine 10 MG Oral Tablet amlodipine (NORVASC) 10 M G tablet amlodipine (NORVASC) 10 MG tablet 10 mg Oral aborted T burke 10 mg by mouth [facility] Insurance Providers Payer name Policy type / Coverage type Policy ID Covered libertarian ID Covered libertarian's relationship to rodriguez Policy Rodriguez Plan Information [id number] [facility] [id number] SP [id number] [facility] Healthcare Commercial Pos [id number] Self Pos [place]YENNE ROLDAN PHY [id number] SP [id number] [facility] [id number] Codie [id number] P [id number] Self [id number] [facility] Healthcare Commercial [id number] Self [id number] OTHER B TRANSPLANT Self TRANSPLAN T MEDICARE [id number] SP [id number] A MEDICARE A [id number] Self [id number] [id number] MEDICARE A [id number] Self [id number] A [facility] [id number] SP [id number] MEDICARE [id number] SP [id number] A Medicare Natl Govt Serv[employer] Medicare Primary [id number] Self 0 [id number] Medicare Natl Govt Servic Medicare Primary [id number] Self MEDICARE [id number] SP [id number] T ANSI-Medicare Part B [id number] MEDICARE [id number] SP [id number] [id number] [facility] [id number] SP [id number] [facility] [id number] SP [id number] [facility] [id number] SP [id number] MEDICARE C [id number] S [id number] [id number] [facility] O [id number] S [id number] MEDICARE C [id number] S [id number] A Medicare Natl Govt Servic Medicare Primary [id number] Self [id number] ANSI-Not a Secondary Insurance [id number] [facility] [id number] [facility] Primary [id number] Self 7 [id number] [facility] Primary [id number] Self 0 [id number] Problems, Conditions, and Diagnoses Code Display Name Description Problem Type Effective Dates Data Source(s) Z01.818 Encounter for other preprocedural examin ation Encounter for other preprocedural examination Diagnosis 11/24/2020 07:58:55 AM [facility] Z94.0 Kidney transplant status Kidney transplant status Diag nosis 08/19/2020 08:51:42 AM [facility] Z79.899 Other nursing home (current) drug therapy [employer] intermediary (current) drug therapy Diagnosis 08/19/2020 08:29:00 AM [facility] Z48.298 Encounter for aftercare following other organ transplant Encounter for aftercare following other organ transplant Diagnosis 08/19/2020 08:29: 00 AM [facility] R79.89 Other specified abnormal findings of blo od chemistry Other specified abnormal findings of blood chemistry Diagnosis 08/19/2020 08:29:00 AM [facility] No diagnosis No diagnosis Diagnosis 07/21/2020 04:37:00 P M [facility] trppost trppost Diagnosis 10/15/2019 08:23:31 AM [facility] [id number] Essential hypertension Essential hypertension Problem 11/04/2020 12:00:00 AM EDT MICHEL ([facility], ) Surgeries/Procedures Procedure Description Date Indications Data Source(s) XR CHEST FRONTAL AND LATERAL 00162 <td>XR CHEST FRONTA L AND LATERAL 66936</td><td>Routine</td><td>10/29/2020 11:39 AM EDT</td><td> Pre-transplant evaluation for chronic kidney disease</td><td> </td> 10/29/2020 11:39:00 AM EDT Pre-transplant evaluation for chronic kidney disease [facility] Pre-transplant evaluation for chronic ki dney disease OFFICE OUTPATIENT NEW 45 MINUTES 08/26/2020 12:00:00 A M EDT [facility] ([facility], ) ECG ROUTINE ECG W/LEAST 12 LDS W/I&R 08/26/2020 12:00: 00 AM EDT [facility] ([facility]) OFFICE OUTPATIENT VISIT 25 MINUTES 08/26/2020 12:00:00 AM EDT [facility] ([facility]) URNLS DIP STICK/TABLET REAGENT AUTO MICROSCOPY <td>URI NALYSIS WITH MICROSCOPIC</td><td>STAT</td><td>08/19/2020 9:21 AM EDT</td><td></td><td> </td> 08/19/2020 09:21:00 AM [facility] HLA-DSA 1 AND 2 <td>HLA-DSA 1 AND 2</td><td> Routine</td><td>08/19/2020 9:06 AM EDT</td><td></td><td> </td> 08/19/2020 09:06:00 AM [facility] PARTIAL THROMBOPLASTIN TIME (PTT) <td>PARTIAL THROMBOP LASTIN TIME (PTT)</td><td>STAT</td><td>08/19/2020 9:06 AM EDT</td><td></td><td> </td> 08/19/2020 09:06:00 AM [facility] DRUG SCREEN QUALITATIVE TACROLIMUS <td>TACROLIMUS TROUGH</td><td>Routine</td><td>08/19/2020 9:06 AM EDT</td><td></td><td> </td> 08/19/2020 09:06:00 AM [facility] PROTHROMBIN TIME <td>PROTIME INR</td><td>STAT </td><td>08/19/2020 9:06 AM EDT</td><td></td><td> </td> 08/19/2020 09:06:00 AM [facility] BLOOD COUNT COMPLETE AUTO&AUTO DIFRNTL WBC COUNT <td>C BC AND DIFFERENTIAL</td><td>Routine</td><td>08/19/2020 9:06 AM EDT</td><td></td><td> </td> 08/19/2020 09:06:00 AM [facility] BASIC METABOLIC PANEL CALCIUM TOTAL <td>BASIC METABOLI C PANEL</td><td>STAT</td><td>08/19/2020 9:06 AM EDT</td><td></td><td> </td> 08/19/2020 09:06:00 AM [facility] Results ID Date Data Source [id number] 11/04/2020 09:25:59 AM [facility] Name Value Range Interpretation Code Description Data Swetha rce(s) Supporting Document(s) Progress Note [facility] YWANPl0jJxLYZiVm83/YSHczTVSaa5SiJHleBOz0XNurWAJuV7QdJZQ0kR8bGXR4GLrGIqItAxWeTCT9 [facility] [file] aBAaQxmT8e2cZWdALj7c+IWrxXk8+2E5/Rs93q/Jorge A [file] ICAgICAgICAgICAgICAgICAgICAgICAgICAgICAgICAgICAgICAgICAgICAgICAgICAgICAgICAgICAg ICAgICAgICAgICAgICAgDQogICAgICAgICAgICAgIC AgICAgICAgICAgICAgICAgICAgICAgICAgICAgICAgICAgICAgICAgICAgICAgICAgICAgICAgICAgIC AgICAgICAgICAgICAgICAgICAgICAgICAgDQogICAgICAgICAgICAgICAgICAgICAgICAgICAgICAgIC AgICAgICAgICAgICAgICAgICAgICAgICAgICAgICAg ICAgICAgICAgICAgICAgICAgICAgICAgICAgICAgICAgICAgDQogICAgICAgICAgICAgICAgICAgICAg ICAgICAgICAgICAgICAgICAgICAgICAgICAgICAgICAgICAgICAgICAgICAgICAgICAgICAgICAgICAg ICAgICAgICAgICAgICAgICAgDQogICAgICAgICAgIC AgICAgICAgICAgICAgICAgICAgICAgICAgICAgICAgICAgICAgICAgICAgICAgICAgICAgICAgICAgIC AgICAgICAgICAgICAgICAgICAgICAgICAgICAgDQogICAgICAgICAgICAgICAgICAgICAgICAgICAgIC AgICAgICAgICAgICAgICAgICAgICAgICAgICAgICAg ICAgICAgICAgICAgICAgICAgICAgICAgICAgICAgICAgICAgICAgDQogICAgICAgICAgICAgICAgICAg ICAgICAgICAgICAgICAgICAgICAgICAgICAgICAgICAgICAgICAgICAgICAgICAgICAgICAgICAgICAg ICAgICAgICAgICAgICAgICAgICAgDQogICAgICAgIC AgICAgICAgICAgICAgICAgICAgICAgICAgICAgICAgICAgICAgICAgICAgICAgICAgICAgICAgICAgIC AgICAgICAgICAgICAgICAgICAgICAgICAgICAgICAgDQogICAgICAgICAgICAgICAgICAgICAgICAgIC AgICAgICAgICAgICAgICAgICAgICAgICAgICAgICAg ICAgICAgICAgICAgICAgICAgICAgICAgICAgICAgICAgICAgICAgICAgDQogICAgICAgICAgICAgICAg ICAgICAgICAgICAgICAgICAgICAgICAgICAgICAgICAgICAgICAgICAgICAgICAgICAgICAgICAgICAg FIRlWDTbUOWyTSOnZBHvFFPcGHKhJKGeHEn2O9wrFB VhJOEuSX2lMRl8Mj2+VUeXNiRgTFS9fiSshY2FCM7oa7OiDBarQNFik5VxMMr2DP8SXKShDFjpDQ7JNP ozdw1MMCQpHMGnbEEDh3zhNgYaIEP1IUGhNwunJF9PUFMlL5yydoGaEHYwROPAEEkwWAXTXG1PCvUqU1 GciN98CVYWOx0+QHiqwfYaOpeGQnGsVXKvs2FbTJr7 QH9LOXFbTkuwg4VqEnCpVGVWAWqzFW1ZEEA8FGXbKXFfJh4QQXHiY745zdEjZM6UBv8RQlSwIY0ias2S YpFgZPZeQwmPUlw5HBqcMG0DiYMpKSeClz9xbnGndtEOm4SaeyPprCXOkirzkaIUBAnucQptdYobWQMo UXGnDK4dQO1pFUMkGZX9FfU0MZCORJ2XAWGpOSQheA JxQRQkNGDQYS0GLLtnKVD0UAHkmyXskMKmHNwqOU9PXUYmxlBgVbYgBIVWUEw+Kw1UCK9ub2TwVIyiZs WzZY4pgd5VVJwRGxZuZ4Q3uOQiP5C9ZBpqSh3CISPbGDUgKQyjOKCABOohMS4OVF8pykU3UM9CwVWfDD KyXNQvjFXgPIf5H29pxOVaHGmhMN6XJOK+Kenneth+Pg0K NODkLIHuVCQhAtXyVABWHkGpL7VeP4EAy8TyF5BdJK91zRrwtyNoLQozMT1WWI2yROPpXCQNUL2YiTFt fF2hsoCwAHRcOMVETmGgH48edZQiINEbAATsOQQzUd0GBOMmL6FeruYruZxpheOlTRDwYXJCDV4XNAyb krLlyTKzqNavYT80iBybCT5DQq6DLkWyIM7ilm0XlW CyXb9GYWYcGG2ATDMmGUPiZIUuPPD5ABMyUxFtFHyiHNDqLGAtUSM3DZJwLJKhTO7FLrArXGFhCNdxJp DiTLQnGGAmzt0UPGKjXKBaPVg9SyEcMEUuPRQnAEmgYWSfWJGtPOF6KTZaIMWkIP4DFiJhXFGtIJQ9OU AxNBHmWFJrjp8WMWNgLYVpBgh2NLDnZXIvNIZfSPme ONIzGNFjUZb7SVZiZAPaMH6UCfMgFYGfXOMnCENnKGUpQCMmee5ADYXaKWYmPEV2SNLmVLItWTXpJCqr JXEcAQY2RiN3GQRwIOLdNI1QHpDiJPXwGXV1QkIqWVPjIVAbhk0IZSSqVJQgDaT9PGFvQQMbNAGbTZzq NMQbLKE2WMw6OBVhPILzLN4HOiIeLNFjQFW3BOTkXT EbWLVkgv7ZDBBnKTDyWJV8USStYYIjXXDgSDeyMRMoNIQ8LBQ2WQRtLWVuZT3UZzBuLMBtUNu6NeBfZU XzGOCpyh8SATVnBAExYJoqTLOcUSCqFYJdGBetPBIaTLY9CWKqECYtKDArIG0TAwNeZDMgGBv1XSMrDV NhGCTdyy3CNFUoCVTqTGp7NhNwZNIvYRQkVTwkZRYp YYWtTTX8ACYtTGLoQG2VDiKjBQTpUwRfCMQnWDOoLLUzcm7ZcHSqjBtaiv5SYZcALw5MnGhvJLD6XOrl Or0zkVChLkBrEKSOSx6RpwFiVEMjDTUEUGxgMCRsDMM5YiNeKMXeTTtnMfZ2Trb9VVO4XyX0MCRxGMYv OOMnWlK1GPdqE7D9RlDeW7IcZFAcZUebXIJ8PVtrSF YwYzBhMGY+BR3gGTy+Yl7Zh1FgavU9inWxHIbgKII8ZZ5RQZHUR5CPOm== ID Date Data Source [id number] 10/29/2020 12:41:33 PM EDT 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 Name Value Range Interpretation Code Description Data Swetha rce(s) Supporting Document(s) Parathyrin.intact [Mass/volume] in Serum or Plasma 206 pg/mL 15-65 H [facility] ID Date Data Source [id number] 10/29/2020 01:33:56 PM [facility] Value Range Interpretation Code Description Data Swetha rce(s) Supporting Document(s) Hemoglobin A1c/Hemoglobin.total in Blood by HPLC 5.8 % 4.0-6.0 [facility] (NOTE)<5.7% Average risk of diabetes (ADA)5.7-6.4% Increased risk of diabetes(ADA)>/= 6.5% Diagnostic for diabetes(ADA) Glucose mean value [Mass/volume] in Blood Estimated fr om glycated hemoglobin 120 mg/dL <126 [facility] ID Date Data Source [id number] 10/29/2020 01:12:00 PM [facility] Value Range Interpretation Code Description Data Swetha rce(s) Supporting Document(s) HLA MOLECULAR ABCDRDQ [facility] ID Date Data Source [id number] 10/29/2020 01:12:00 PM [facility] Value Range Interpretation Code Description Data Swetha rce(s) Supporting Document(s) HLA Ab [Type] in Serum [facility] ID Date Data Source [id number] 10/29/2020 01:57:16 PM [facility] Value Range Interpretation Code Description Data Swetha rce(s) Supporting Document(s) Hepatitis C virus Ab [Presence] in Serum or Plasma by Immuno assay Non Reactive [facility] No serological evidence of active infect ion. If recent exposure is suspected, test for HCV RNA. ID Date Data Source [id number] 10/29/2020 01:57:16 PM [facility] Value Range Interpretation Code Description Data Swetha rce(s) Supporting Document(s) Treponema pallidum Ab [Presence] in Serum Non Reactive [facility] ID Date Data Source [id number] 10/29/2020 01:57:16 PM [facility] Value Range Interpretation Code Description Data Swetha rce(s) Supporting Document(s) Hepatitis B virus surface Ag [Presence] in Serum or Plasma b y Immunoassay Non Reactive [facility] No active or previous infection. Suscept ible to infection. ID Date Data Source [id number] 10/29/2020 02:27:36 PM [facility] Name Value Range Interpretation Code Description Data Swetha rce(s) Supporting Document(s) Hepatitis B virus surface Ab [Units/volume] in Serum or Plas ma by Immunoassay >11.4 L [facility] Non ReactiveNo active or previous infect ion. Susceptible to infection. ID Date Data Source [id number] 10/29/2020 02:48:55 PM [facility] Name Value Range Interpretation Code Description Data Swetha rce(s) Supporting Document(s) Cardiolipin IgG Ab [Interpretation] in Serum <20.0 [facility] Negative results do not rule out Antipho spholipid syndrome. Additional APL testing should be considered. ID Date Data Source [id number] 11/02/2020 11:57:21 AM [facility] Value Range Interpretation Code Description Data Swetha rce(s) Supporting Document(s) Cytomegalovirus IgG Ab [Presence] in Serum by Immunoassay 4.49 {ISR} <0.91 H [facility] PositiveIndicates presence of detectable antibodyto Cytomegalovirus by the TIFFANY test.Indicative of current or previous infection.The individual may be at risk oftransmitting CMV infection, but is notnecessarily currently contagious. ID Date Data Source [id number] 11/02/2020 11:59:58 AM [facility] Value Range Interpretation Code Description Data Swetha rce(s) Supporting Document(s) Rubella virus IgG Ab [Presence] in Serum or Plasma by Immunoassa y 2.96 {ISR} [facility] PositiveIndicates presence of detectable IgGantibody to Rubella by the TIFFANY test.Indicative of current or previousinfection. The individual may be atrisk of transmitting Rubella infection,but is not necessarily currentlycontagious. ID Date Data Source [id number] 11/02/2020 11:59:58 AM [facility] Value Range Interpretation Code Description Data Swetha rce(s) Supporting Document(s) Measles virus IgG Ab [Presence] in Serum by Immunoassay 3.46 {ISR} [facility] PositiveIndicates presence of detectable IgGantibody to Measles by the TIFFANY test.Indicative of current or previousinfection. The individual may be atrisk of transmitting Measles infection,but is not necessarily currentlycontagious. ID Date Data Source [id number] 11/02/2020 11:59:58 AM [facility] Name Value Range Interpretation Code Description Data Swetha rce(s) Supporting Document(s) Varicella zoster virus IgG Ab [Presence] in Serum by Immunoassay 5. 38 {ISR} [facility] PositiveIndicates presence of detectable IgGantibody to Varicella-Zoster Virus bythe TIFFANY test. Indicative of current orprevious infection. ID Date Data Source [id number] 11/02/2020 11:59:58 AM [facility] Name Value Range Interpretation Code Description Data Swetha rce(s) Supporting Document(s) Mumps virus IgG Ab [Presence] in Serum by Immunoassay 2.62 {ISR} [facility] PositiveIndicates presence of detectable IgGantibody to Mumps by the TIFFANY test.Indicative of current or previousinfection. The individual may be atrisk of transmitting Mumps infectionbut is not necessarily currentlycontagious. ID Date Data Source [id number] 11/05/2020 03:04:52 PM [facility] Value Range Interpretation Code Description Data Swetha rce(s) Supporting Document(s) Nayan Flood virus capsid IgG Ab [Units/volume] in Serum by Immunoassay Negative [facility] Indicates presence of detectable IgGanti body to EBV VCA (P-18)by the TIFFANY test.(NOTE)The following results were obtained with the MyTime EBV VCAIgG TIFFANY. Values obtained with different methods may not be usedinterchangeably. The magnitude of the reported IgG level cannot becorrelated to an endpoint titer. Nayan Flood virus nuclear IgG Ab [Units/volume] in Se rum by Immunoassay 2.21 {ISR} <0.91 H [facility] PositiveIndicates presence of detectable IgGantibody to EBNA-1by the TIFFANY test.(NOTE)The following results were obtained with the MyTime EBNA- 1IgG TIFFANY. Values obtained with different methods may not be usedinterchangeably. The magnitude of the reported IgG level cannot becorrelated to an endpoint titer. Nayan Flood virus capsid IgM Ab [Units/volume] in Serum by Immunoassay Negative [facility] No significant level of VCA IgM antibody .(NOTE)The following results were obtained with the MyTime EBV VCAIgM TIFFANY. Values obtained with different methods may not be usedinterchangeably. The magnitude of the reported IgM level cannot be correlated to an endpoint titer. ID Date Data Source [id number] 10/29/2020 01:18:11 PM EDT [facility] NegativeNo interferon-gamma response to M.tuberculosisantigens was detected. Infection withM. tuberculosis is unlikely. A single negativeresult does not exclude infection with M. TB.In patients at high risk for M. tuberculosisinfection, a 2nd test should be consideredin accordance with [id number] ATS/IDSA/CDC Clinical Practice Guidelinesfor Diagnosis of Tuberculosis in Adults andChildren [Uriel GÓMEZ et. al. Clin Infec.Cwz7844 64(2):111-115] Name Value Range Interpretation Code Description Data Swetha rce(s) Supporting Document(s) Leukocytes [#/volume] in Blood by Automated count 3.2 10*3/uL 4-10 L [facility] Erythrocytes [#/volume] in Blood by Automated count 3.89 10*6/uL 4.6- 6.1 [facility] Hemoglobin [Mass/volume] in Blood 10.3 g/dL 13.5-18 [facility] Hematocrit [Volume Fraction] of Blood by Automated count 32.2 % 4 1-53 [facility] Erythrocyte mean corpuscular volume [Entitic volume] by Auto mated count 82.9 fL 80-96 [facility] Erythrocyte mean corpuscular hemoglobin [Entitic mass] by Automated count 26.5 pg 27-33 [facility] Erythrocyte mean corpuscular hemoglobin concentration [Mass/volume] by Automated count 32.0 g/dL 32.0-36.0 [facility] width [Ratio] by Automated count 13.9 % 11.5-14.5 [facility] Platelets [#/volume] in Blood by Automated count 149 10*3/uL 150-400 [facility] Differential cell count method - Blood [facility] Neutrophils/100 leukocytes in Blood by Automated count 50 % [facility] Lymphocytes/100 leukocytes in Blood by Automated count 31 % [facility] Monocytes/100 leukocytes in Blood by Automated count 17 % [facility] Eosinophils/100 leukocytes in Blood by Automated count 1 % [facility] Basophils/100 leukocytes in Blood by Automated count 1 % [facility] Neutrophils [#/volume] in Blood by Automated count 1.61 10*3/uL 1.8-7 .0 [facility] Lymphocytes [#/volume] in Blood by Automated count 0.96 10*3/uL 1.2-4 .0 L [facility] Monocytes [#/volume] in Blood by Automated count 0.54 10*3/uL 0-0.8 [facility] Eosinophils [#/volume] in Blood by Automated count 0.02 10*3/uL 0-0.5 [facility] Basophils [#/volume] in Blood by Automated count 0.02 10*3/uL 0-0.2 [facility] Nucleated erythrocytes/100 leukocytes [Ratio] in Blood by Automated count 0 /100{WBCs} 0-0 [facility] ID Date Data Source [id number] 10/29/2020 01:33:34 PM [facility] NegativeNo interferon-gamma response to M.tuberculosisantigens was detected. Infection withM. tuberculosis is unlikely. A single negativeresult does not exclude infection with M. TB.In patients at high risk for M. tuberculosisinfection, a 2nd test should be consideredin accordance with [id number] ATS/IDSA/CDC Clinical Practice Guidelinesfor Diagnosis of Tuberculosis in Adults andChildren [Lewinsohn DALIA et. al. Clin Infec.Jri7812 64(2):111-115] Name Value Range Interpretation Code Description Data Swetha rce(s) Supporting Document(s) Prothrombin time (PT) 13.9 s 11.6-14.0 [facility] INR in Platelet poor plasma by Coagulation assay 1.11 [facility] Routine intensity oral anticoagulation I NR is typically 2.0-3.0. Target INR must be clinically individualized. ID Date Data Source [id number] 10/29/2020 01:33:34 PM [facility] NegativeNo interferon-gamma response to M.tuberculosisantigens was detected. Infection withM. tuberculosis is unlikely. A single negativeresult does not exclude infection with M. TB.In patients at high risk for M. tuberculosisinfection, a 2nd test should be consideredin accordance with [id number] ATS/IDSA/CDC Clinical Practice Guidelinesfor Diagnosis of Tuberculosis in Adults andChildren [Ricardoohn DALIA et. al. Clin Infec.Jyo6432 64(2):111-115] Name Value Range Interpretation Code Description Data Swetha rce(s) Supporting Document(s) aPTT in Platelet poor plasma by Coagulation assay 33.4 s 24.0-33. 0 H [facility] ID Date Data Source [id number] 10/29/2020 02:01:56 PM [facility] NegativeNo interferon-gamma response to M.tuberculosisantigens was detected. Infection withM. tuberculosis is unlikely. A single negativeresult does not exclude infection with M. TB.In patients at high risk for M. tuberculosisinfection, a 2nd test should be consideredin accordance with [id number] ATS/IDSA/CDC Clinical Practice Guidelinesfor Diagnosis of Tuberculosis in Adults andChildren [Crowinsohn DALIA et. al. Clin Infec.Xxf1872 64(2):111-115] Name Value Range Interpretation Code Description Data Swetha rce(s) Supporting Document(s) Albumin [Mass/volume] in Serum or Plasma by Bromocresol green (BCG) dye binding method 4.5 g/dL 3.5-5.2 [facility] Bilirubin.total [Mass/volume] in Serum or Plasma 0.5 mg/dL <1.2 [facility] Bilirubin.direct [Mass/volume] in Serum or Plasma <0.3 [facility] Alkaline phosphatase [Enzymatic activity/volume] in Serum or Plasma 109 U/L 40-129 [facility] Aspartate aminotransferase [Enzymatic activity/volume] in Serum or Plasma 12 U/L <40 [facility] Alanine aminotransferase [Enzymatic activity/volume] in Seru m or Plasma 16 U/L <41 [facility] Protein [Mass/volume] in Serum or Plasma 7.6 g/dL 6.4-8.3 [facility] ID Date Data Source [id number] 10/29/2020 02:01:56 PM [facility] NegativeNo interferon-gamma response to M.tuberculosisantigens was detected. Infection withM. tuberculosis is unlikely. A single negativeresult does not exclude infection with M. TB.In patients at high risk for M. tuberculosisinfection, a 2nd test should be consideredin accordance with [id number] ATS/IDSA/CDC Clinical Practice Guidelinesfor Diagnosis of Tuberculosis in Adults andChildren [Uriel GÓMEZ et. al. Clin Infec.Wcg0737 64(2):111-115] Name Value Range Interpretation Code Description Data Swetha rce(s) Supporting Document(s) Cholesterol [Mass/volume] in Serum or Plasma 150 mg/dL <200 [facility] Triglyceride [Mass/volume] in Serum or Plasma 150 mg/dL <150 H [facility] Cholesterol in HDL [Mass/volume] in Serum or Plasma 36 mg/dL >40 L [facility] Cholesterol in LDL [Mass/volume] in Serum or Plasma by calcu lation 85 mg/dL <100 [facility] Cholesterol in VLDL [Mass/volume] in Serum or Plasma by calc ulation 30 mg/dl 16-42 [facility] Cholesterol non HDL [Mass/volume] in Serum or Plasma 115 mg/dL <130 [facility] ID Date Data Source [id number] 10/29/2020 02:01:56 PM EDT [facility] NegativeNo interferon-gamma response to M.tuberculosisantigens was detected. Infection withM. tuberculosis is unlikely. A single negativeresult does not exclude infection with M. TB.In patients at high risk for M. tuberculosisinfection, a 2nd test should be consideredin accordance with [id number] ATS/IDSA/CDC Clinical Practice Guidelinesfor Diagnosis of Tuberculosis in Adults andChildren [Uriel DM et. al. Clin Infec.Kid5748 64(2):111-115] Name Value Range Interpretation Code Description Data Swetha rce(s) Supporting Document(s) Bicarbonate [Moles/volume] in Serum 16 mmol/L 22-29 L [facility] Chloride [Moles/volume] in Serum or Plasma 109 mmol/L 98-107 H [facility] Creatinine [Mass/volume] in Serum or Plasma 4.70 mg/dL 0.70-1.20 H [facility] Glucose [Mass/volume] in Serum or Plasma 92 mg/dL 70-140 [facility] Potassium [Moles/volume] in Serum or Plasma 5.2 mmol/L 3.4-5.1 H [facility] Sodium [Moles/volume] in Serum or Plasma 141 mmol/L 136-145 [facility] Urea nitrogen [Mass/volume] in Serum or Plasma 70 mg/dL 8-23 H [facility] Anion gap 3 in Serum or Plasma 16 mmol/L 8-15 H [facility] Osmolality of Serum or Plasma by calculation 312 mosm/kg 275-300 H [facility] Creatinine/Urea nitrogen [Mass Ratio] in Serum or Plasma 15 [facility] Calcium [Mass/volume] in Serum or Plasma 9.4 mg/dL 8.8-10.2 [facility] [facility] Glomerular filtration rate/1.73 sq M pre dicted among non-blacks [Volume Rate/Area] in Serum or Plasma by Creatinine-based formula (MDRD) 12 mL/min/1.73m2 >60 L [facility] Glomerular filtration rate/1.73 sq M pre dicted among blacks [Volume Rate/Area] in Serum or Plasma by Creatinine-based formula (MDRD) 14 mL/min/1.73m2 >60 L [facility] ID Date Data Source [id number] 10/29/2020 02:01:56 PM EDT [facility] NegativeNo interferon-gamma response to M.tuberculosisantigens was detected. Infection withM. tuberculosis is unlikely. A single negativeresult does not exclude infection with M. TB.In patients at high risk for M. tuberculosisinfection, a 2nd test should be consideredin accordance with [id number] ATS/IDSA/CDC Clinical Practice Guidelinesfor Diagnosis of Tuberculosis in Adults andChildren [Lewinsohn DM et. al. Clin Infec.[id number] 64(2):111-115] Name Value Range Interpretation Code Description Data Swetha rce(s) Supporting Document(s) Magnesium [Mass/volume] in Serum or Plasma 1.6 mg/dL 1.6-2.4 [facility] ID Date Data Source [id number] 10/29/2020 02:01:56 PM T [facility] NegativeNo interferon-gamma response to M.tuberculosisantigens was detected. Infection withM. tuberculosis is unlikely. A single negativeresult does not exclude infection with M. TB.In patients at high risk for M. tuberculosisinfection, a 2nd test should be consideredin accordance with [id number] ATS/IDSA/CDC Clinical Practice Guidelinesfor Diagnosis of Tuberculosis in Adults andChildren [Lewodetteohn DALIA et. al. Clin Infec.Vas4653 64(2):111-115] Name Value Range Interpretation Code Description Data Swetha rce(s) Supporting Document(s) Phosphate [Mass/volume] in Serum or Plasma 4.6 mg/dL 2.5-4.5 H [facility] ID Date Data Source [id number] 10/29/2020 02:01:56 PM T [facility] NegativeNo interferon-gamma response to M.tuberculosisantigens was detected. Infection withM. tuberculosis is unlikely. A single negativeresult does not exclude infection with M. TB.In patients at high risk for M. tuberculosisinfection, a 2nd test should be consideredin accordance with [id number] ATS/IDSA/CDC Clinical Practice Guidelinesfor Diagnosis of Tuberculosis in Adults andChildren [Uriel GÓMEZ et. al. Clin Infec.Tzb1331 64(2):111-115] Name Value Range Interpretation Code Description Data Swetha rce(s) Supporting Document(s) Urate [Mass/volume] in Serum or Plasma 5.6 mg/dl 3.4-7.0 [facility] ID Date Data Source [id number] 10/29/2020 02:08:06 PM [facility] NegativeNo interferon-gamma response to M.tuberculosisantigens was detected. Infection withM. tuberculosis is unlikely. A single negativeresult does not exclude infection with M. TB.In patients at high risk for M. tuberculosisinfection, a 2nd test should be consideredin accordance with [id number] ATS/IDSA/CDC Clinical Practice Guidelinesfor Diagnosis of Tuberculosis in Adults andChildren [Uriel GÓMEZ et. al. Clin Infec.Abo4492 64(2):111-115] Name Value Range Interpretation Code Description Data Swetha rce(s) Supporting Document(s) Prostate specific Ag [Mass/volume] in Serum or Plasma 1.0 ng/mL <4.0 [facility] Serum levels of PSA should not be interp reted as absolute evidence of the presence or absence of Cancer. Results obtained with different methods cannot be used interchangeably. This method is manufactured by [employer] and is an electrochemiluminesence immunoassay. ID Date Data Source [id number] 10/30/2020 01:07:28 PM [facility] NegativeNo interferon-gamma response to M.tuberculosisantigens was detected. Infection withM. tuberculosis is unlikely. A single negativeresult does not exclude infection with M. TB.In patients at high risk for M. tuberculosisinfection, a 2nd test should be consideredin accordance with [id number] ATS/IDSA/CDC Clinical Practice Guidelinesfor Diagnosis of Tuberculosis in Adults andChildren [Uriel GÓMEZ et. al. Clin Infec.Vpz7018 64(2):111-115] Name Value Range Interpretation Code Description Data Swetha rce(s) Supporting Document(s) Ufzseab-7-Zeueugqdn dehydrogenase [Presence] in Dried blood spot Normal [facility] ID Date Data Source [id number] 11/03/2020 03:27:24 PM EDT [facility] NegativeNo interferon-gamma response to M.tuberculosisantigens was detected. Infection withM. tuberculosis is unlikely. A single negativeresult does not exclude infection with M. TB.In patients at high risk for M. tuberculosisinfection, a 2nd test should be consideredin accordance with [id number] ATS/IDSA/CDC Clinical Practice Guidelinesfor Diagnosis of Tuberculosis in Adults andChildren [Uriel DM et. al. Clin Infec.Zeu5036 64(2):111-115] Name Value Range Interpretation Code Description Data Swetha rce(s) Supporting Document(s) Mycobacterium tuberculosis stimulated gamma interferon [Units/volume] in Blood 0.01 [IU]/mL [facility] 0.01 Mitogen stimulated gamma interferon [Units/volume] in Blood [facility] Gamma interferon background [Units/volume] in Blood by Immun oassay 0.04 [IU]/mL [facility] ID Date Data Source [id number] 11/02/2020 01:06:10 PM EDT [facility] Name Value Range Interpretation Code Description Data Swetha rce(s) Supporting Document(s) BK virus DNA [#/volume] (viral load) in Serum or Plasma by Probe and target amplification method [id number] copies/mL Negative [facility] (NOTE)The quantitative range of this ass ay is 200 to 10 million copies/mL.This test was developed and its performance characteristicsdetermined by [employer]. It has not been cleared or approved by theFood and Drug Administration. The FDA has determined that suchclearance or approval is not necessary. BK virus DNA [Log #/volume] (viral load) in Serum or Plasma by Probe and target amplification method 6.140 pqt24ecyl/mL [facility] (NOTE)Performed At: [facility] [id number] Daniel MD Ph:[id number] ID Date Data Source [id number] 10/29/2020 03:03:12 PM EDT [facility] Name Value Range Interpretation Code Description Data Swetha rce(s) Supporting Document(s) HIV 1+2 Ab+HIV1 p24 Ag [Presence] in Serum or Plasma by Immu noassay Non Reactive [facility] Negative for HIV-1 p24 antigenand HIV-1/ HIV-2 antibodies. Nolaboratory evidence of HIVinfection. ID Date Data Source [id number] 10/29/2020 12:00:27 PM EDT [facility] XR CHEST FRONTAL AND LATERAL [id number] RESULTInterpreted by:Esa Corbin DOINDICATION: Preoperative kidney transplant evaluation.TECHNIQUE: XR CHEST FRONTAL AND LATERAL [id number], 10/29/2020 11:34 AM, upright PA and lateral views.COMPARISON: Chest radiograph dated 09/23/2014.FINDINGS: The chest wall is normal in appearance. Degenerative changes are present in thoracic spine.The cardiomediastinal contours are normal.There is no evidence of pleural disease.The lungs are clear.IMPRESSION: No radiographic evidence of acute disease.This document has been electronically signed by MEHRDAD Corbin on 10/29/2020 11:58 AM Name Value Range Interpretation Code Description Data Swetha rce(s) Supporting Document(s) ID Date Data Source [id number] 10/29/2020 11:10:12 AM EDT [facility] Name Value Range Interpretation Code Description Data Swetha rce(s) Supporting Document(s) Progress Note [facility] JXTICd0uVpQHXuKw11/OKYrsUSSso4HvRAskNRz8SQbzDCRdX3KwWPI0fG8cGBV5HPiHKoQnAnDmWOEi [facility] [file] MEMBER OF PARLIAMENT/OoZoH6ALYHxVTHUHquA31R8Jt5tUS9Sm4ocvW3U 9LTgXzMrnfCz2vLc58oJpWRUnSlp5vsjf4gyTrRd4SM7z7ExKAczevtz75ZE0P0uwM6V0Bhu4afnysP1 D9JG5Y/pUtchGoC+Mary/Oxc0riW8Lm7nTRN29hC8DuEU0abFmeybRiHY7USy0B45nYKJzTB+JjtBo5JY [file] 9GDQo= ID Date Data Source [id number] 10/20/2020 11:29:48 AM EDT [facility] Name Value Range Interpretation Code Description Data Swetha rce(s) Supporting Document(s) Progress Note [facility] IUVKFq6hFlFJOuTz56/NPBvhHPZgp2WgMTaqUTk0UBhjRWWlQ2OaVEX9jS3lHOJ6AFtPXbXjHkTlVZQ9 lbm [file] uL/iJ+1HYGZbj7GLmI4Mo2k3W+9JbwEMLKXoisHmu2ksXicwqLTLQU96OEtXvgQ+middleware consultant+78DYayHlGuFCZ [file] ICAgICAgICAgICAgICAgICAgICAgICAgICAgICAgIC AgICAgICAgICAgICAgICAgICAgICAgICAgICAgICAgICAgICANCiAgICAgICAgICAgICAgICAgICAgIC AgICAgICAgICAgICAgICAgICAgICAgICAgICAgICAgICAgICAgICAgICAgICAgICAgICAgICAgICAgIC AgICAgICAgICAgICAgICAgICANCiAgICAgICAgICAg ICAgICAgICAgICAgICAgICAgICAgICAgICAgICAgICAgICAgICAgICAgICAgICAgICAgICAgICAgICAg ICAgICAgICAgICAgICAgICAgICAgICAgICAgICANCiAgICAgICAgICAgICAgICAgICAgICAgICAgICAg ICAgICAgICAgICAgICAgICAgICAgICAgICAgICAgIC AgICAgICAgICAgICAgICAgICAgICAgICAgICAgICAgICAgICAgICANCiAgICAgICAgICAgICAgICAgIC AgICAgICAgICAgICAgICAgICAgICAgICAgICAgICAgICAgICAgICAgICAgICAgICAgICAgICAgICAgIC AgICAgICAgICAgICAgICAgICAgICANCiAgICAgICAg ICAgICAgICAgICAgICAgICAgICAgICAgICAgICAgICAgICAgICAgICAgICAgICAgICAgICAgICAgICAg ICAgICAgICAgICAgICAgICAgICAgICAgICAgICAgICANCiAgICAgICAgICAgICAgICAgICAgICAgICAg ICAgICAgICAgICAgICAgICAgICAgICAgICAgICAgIC AgICAgICAgICAgICAgICAgICAgICAgICAgICAgICAgICAgICAgICAgICANCiAgICAgICAgICAgICAgIC AgICAgICAgICAgICAgICAgICAgICAgICAgICAgICAgICAgICAgICAgICAgICAgICAgICAgICAgICAgIC AgICAgICAgICAgICAgICAgICAgICAgICANCiAgICAg ICAgICAgICAgICAgICAgICAgICAgICAgICAgICAgICAgICAgICAgICAgICAgICAgICAgICAgICAgICAg ICAgICAgICAgICAgICAgICAgICAgICAgICAgICAgICAgICANCiAgICAgICAgICAgICAgICAgICAgICAg ICAgICAgICAgICAgICAgICAgICAgICAgICAgICAgIC AgICAgICAgICAgICAgICAgICAgICAgICAgICAgICAgICAgICAgICAgICAgICANCjw/gPKeP4daxMCkxo V7T7cxFr6JXo4KYO1zn0AtYMQvJZmyyfUjOtaPCxVrCLAoXwxKVej4SOtyXH2LzGUyO7CuR0HwGKidMY 4VAJCsJXPowVUtJDLjSZVwYbP4CDZkJLbqHN8XvZKw VSwwBMOhQPGsVbYgNIKpHJ3RUQMyB180ugCaZz9HQp1UYpJpOM4ayl8DEeQnXVZcRgmTHtj0BDsjFM7D fCIuaDIvNvDeCTPRRiRoY5eqi1AwHhFlZOZEXItdIU9Ds4CbaVMvRVf+Xd3VXX5mg3BtGNavGvUuIW7l bm1AJCaOTrIiH9ZnoLpgTRRxr9tmUEOzBZ7ugLXjID U2FMSeeYDuaXEBBQQygMG0xnncXHFdWCHbFR7iWE9aBXSoDHBgGnQgVZXESC0PXWCgTJUksNMfFNAhMP IEDK4CGGnvJSD7RXCmoyRukHCbPOwkNR2ACPTdfkGrMpCeAUHXXUx+Yf2VPI1dh3YsZXulIxUdLL9nba 4BRYfPJrLcQ3X5qCPaC9L3BHvcRr3QQSFmSZDdLZxa WTMYVJjzJI0VPL0fomX8ZA8KhUOrANIxBENulKMdVUq3K50tfLKcWRxuDA3SEXL+Kenneth+Ds6FWSYxRALm KSQaInHpVVUGPgCwG3DwK7QHi8SdC3RnKI66aPwmsqBvUTzfVH1BZW2zHNQnSDULBD3WdFVhiP6bwnZk OXQoUDRVPvRrK79gwVEjGYEkKYDbVYTcNj5NWUNiL8 NaucDmeRcqtmXbFKBhSNBEXH0TLNcytqFtaTHjrTooCR83qKpeSM6ROc7CImWxKW7col0HwAMgBi6LRE ObAT9RPJLhPGVwGXPkEST4FEQyNaJkQJnnWOUiCLFmDQR6SNXoZGEuUX6LKkSrXVEtVDCkVtNdYWJxFC Vcmf6DPRVxOGM9OYc6XaQuUSAdMKClNOanHBUsCCVd RFX2EJIkQUQcAH5QCyKaCTKuKLZ8TsCiFGPsANNhpj9DKWGrRZQnXTg8LONzZIFsOZWkWSljKMXjFUZ6 VFmtHRJdYOPuGY8CPnWdWBTrRGz4JPznWYMuOVFtuw2BWLFbSJCwYEC7WsYeHTVgCOVnZGypJIQfWVM8 KMVjMKTwGRHbSB9FNpTkHGGcAFFjWdNnDWVbKYUngf 6GCYUvEEWfHAi3FmLcZXScCBHfGJdlPSUlZQCoLRf4JWDpDWElKG1FOiSwOMAdVAZvBIMkHLDsDCYzlo 7OEWZzSVV2MGMaSXQwQREuJKPtRIxjXYVuTFNzGFO2OILiEKKkYQ6AHnWjASWtZTPnOqVzNQOlLFTjdy 2HGYHyMSC6Hiz7ENCnPFTtNBYyGClsWDDvAPUpCPHu XLAaFGZhUL3RUvGoKPUyOXT6QHRqUXJaSZZmau4XBSYiFMJ9KPm6FeBhCPSxWMRpORsbFTIuNYX1VKB3 WCEmSFRiIH3QOtHfHQBvFETwOUbeOOFdQXGdcj4ByAZpnGyrfu0WLJeIGd5BpQozAWU5ESdiOi9gvHTw DrZdUFYXJn0TqnBnEAUbPNOFCYvhSRDlXKT0HjJuMQ JwJhZtJzQtNZXfVGX3ELw6WxO6V3P8O3W3QdB1ZHzeIMVxLfAaTAXrDnOpTWItNAR2LMscNOCiCpXjWs c+FK5fVVn+Nd6Dk4RjezO2jqOzHCz4IWC2OG7GDVMWI1GANm== ID Date Data Source [id number] 10/20/2020 10:54:12 AM EDT [facility] Name Value Range Interpretation Code Description Data Swetha rce(s) Supporting Document(s) Progress Note [facility] JTRVUh2hTmTLQkYa20/RLUxcMETdu5DtYXqwHTj7LIcpHDYlA9FrSAC4gQ5qWXT7VYxCIrJbVwLcOYB5 lbm [file] ID Date Data Source [id number] 09/29/2020 08:36:00 AM EDT [facility] ([facility]) Name Value Range Interpretation Code Description Data Swetha rce(s) Supporting Document(s) Prostate specific Ag [Mass/volume] in Serum or Plasma 0.93 ng/mL [facility] This assay was performed on the Siemens Dimension EXL using the B- Galactosidase/CPRG methodology and should not be compared interchangeably with other methods. The PSA should not be used alone as a screening test for the presence or absence of malignant disease. ID Date Data Source [id number] 08/20/2020 01:21:22 PM EDT [facility] IR IMAGE GUIDED NEEDLE DRAIN PROCEDUREFI NAL RESULTInterpreted by:Parveen Mabry MDThis statement is intended for documentation purposes only.This exam was performed by the Surgeon and a Radiologist was not present. Please refer to the Physician Procedure note in EPIC.This document has been electronically signed by Parveen Mabry MD on 08/20/2020 1:19 PM Name Value Range Interpretation Code Description Data Swetha rce(s) Supporting Document(s) ID Date Data Source [id number] 08/19/2020 02:12:04 PM EDT [facility] Name Value Range Interpretation Code Description Data Swetha rce(s) Supporting Document(s) Progress Note [facility] HMVBPl4dNrEEYkCx87/XMMzoASRne7IbNUzqZCr0XGqpXQDjE9NoQDX1iR4oCSQ4QGgPViUpCeKdPfQ2 lbm [file] O4mvGsBBz6WntuCXqhELSDPq4B ID Date Data Source [id number] 08/19/2020 12:02:08 PM EDT [facility] Name Value Range Interpretation Code Description Data Swetha rce(s) Supporting Document(s) Operative Note [facility] UATJGh1vUySWQnHw96/OEUvjLFBdb3JuBYleZZl2FNqzDTVkG5YlCCB7sM1uCEX8SXqVLdSzYkKhGvB9 lbm [file] VtO7ITM1jRKoOd5ETXYvXp7ASXJGS1XSJk== ID Date Data Source [id number] [facility]/19[facility]2020 [facility] Interpretation Code Description Data Swetha rce(s) Supporting Document(s) Color of Urine [facility] Clarity of Urine [facility] Specific gravity of Urine by Refractometry automated 1.010 1.003 -1.030 [facility] pH of Urine by Automated test strip 5.0 5.0-8.0 [facility] Protein [Mass/volume] in Urine by Automated test strip Neg [facility] Glucose [Mass/volume] in Urine by Automated test strip Neg [facility] Ketones [Mass/volume] in Urine by Automated test strip Neg [facility] Bilirubin.total [Presence] in Urine by Automated test strip Negative [facility] Hemoglobin [Presence] in Urine by Automated test strip Neg [facility] Leukocyte esterase [Presence] in Urine by Automated test strip Negative [facility] Nitrite [Presence] in Urine by Automated test strip Negati ve [facility] Leukocytes [#/area] in Urine sediment by Automated count 0 /HPF 0 -5 [facility] Erythrocytes [#/area] in Urine sediment by Automated count 0 /HPF 0-3 [facility] ID Date Data Source [id number] 08/19/2020 01:15:59 PM EDT [facility] Value Range Interpretation Code Description Data Swetha rce(s) Supporting Document(s) Tacrolimus [Mass/volume] in Blood 4.5 ng/mL [facility] Renal Transplant Target ValuesImmediate post-transplant: 10 - 15 ng/mL First 6 months: 6 - 15 ng/mL Greater than 6 months: 6 - 15 ng/mL ID Date Data Source [id number] 08/19/2020 09:30:00 AM [facility] Value Range Interpretation Code Description Data Swetha rce(s) Supporting Document(s) HLA Ab [Type] in Serum [facility] ID Date Data Source [id number] 08/19/2020 09:40:36 AM [facility] Value Range Interpretation Code Description Data Swetha rce(s) Supporting Document(s) Leukocytes [#/volume] in Blood by Automated count 3.1 10*3/uL 4-10 L [facility] Erythrocytes [#/volume] in Blood by Automated count 3.73 10*6/uL 4.6- 6.1 L [facility] Hemoglobin [Mass/volume] in Blood 9.8 g/dL 13.5-18 L [facility] Hematocrit [Volume Fraction] of Blood by Automated count 30.8 % 4 1-53 L [facility] Erythrocyte mean corpuscular volume [Entitic volume] by Auto mated count 82.6 fL 80-96 [facility] Erythrocyte mean corpuscular hemoglobin [Entitic mass] by Automated count 26.4 pg 27-33 L [facility] Erythrocyte mean corpuscular hemoglobin concentration [Mass/volume] by Automated count 31.9 g/dL 32.0-[facility].0 [facility] width [Ratio] by Automated count 13.5 % 11.5-14.5 [facility] Platelets [#/volume] in Blood by Automated count 157 10*3/uL 150-400 [facility] Differential cell count method - Blood [facility] Neutrophils/100 leukocytes in Blood by Automated count 58 % [facility] Lymphocytes/100 leukocytes in Blood by Automated count 25 % [facility] Monocytes/100 leukocytes in Blood by Automated count 15 % [facility] Eosinophils/100 leukocytes in Blood by Automated count 1 % [facility] Basophils/100 leukocytes in Blood by Automated count 1 % [facility] Neutrophils [#/volume] in Blood by Automated count 1.82 10*3/uL 1.8-7 .0 [facility] Lymphocytes [#/volume] in Blood by Automated count 0.77 10*3/uL 1.2-4 .0 [facility] Monocytes [#/volume] in Blood by Automated count 0.46 10*3/uL 0-0.8 [facility] Eosinophils [#/volume] in Blood by Automated count 0.03 10*3/uL 0-0.5 [facility] Basophils [#/volume] in Blood by Automated count 0.02 10*3/uL 0-0.2 [facility] Nucleated erythrocytes/100 leukocytes [Ratio] in Blood by Automated count 0 /100{WBCs} 0-0 [facility] ID Date Data Source [id number] 08/19/2020 10:01:26 AM EDT [facility] Name Value Range Interpretation Code Description Data Swetha rce(s) Supporting Document(s) Prothrombin time (PT) 13.2 s 11.6-14.0 [facility] INR in Platelet poor plasma by Coagulation assay 1.05 [facility] Routine intensity oral anticoagulation I NR is typically 2.0-3.0. Target INR must be clinically individualized. ID Date Data Source [id number] 08/19/2020 10:01:26 AM [facility] Name Value Range Interpretation Code Description Data Swetha rce(s) Supporting Document(s) aPTT in Platelet poor plasma by Coagulation assay 31.0 s 24.0-33. 0 [facility] ID Date Data Source [id number] 08/19/2020 10:02:09 AM [facility] Name Value Range Interpretation Code Description Data Swetha rce(s) Supporting Document(s) Bicarbonate [Moles/volume] in Serum 16 mmol/L 22-29 L [facility] Chloride [Moles/volume] in Serum or Plasma 109 mmol/L 98-107 H [facility] Creatinine [Mass/volume] in Serum or Plasma 3.54 mg/dL 0.70-1.20 H [facility] Glucose [Mass/volume] in Serum or Plasma 105 mg/dL 70-140 [facility] Potassium [Moles/volume] in Serum or Plasma 4.3 mmol/L 3.4-5.1 [facility] Hemolyzed Sodium [Moles/volume] in Serum or Plasma 138 mmol/L 136-145 [facility] Urea nitrogen [Mass/volume] in Serum or Plasma 67 mg/dL 8-23 H [facility] Anion gap 3 in Serum or Plasma 13 mmol/L 8-15 [facility] Osmolality of Serum or Plasma by calculation 306 mosm/kg 275-300 H [facility] Creatinine/Urea nitrogen [Mass Ratio] in Serum or Plasma 19 [facility] Calcium [Mass/volume] in Serum or Plasma 9.1 mg/dL 8.8-10.2 [facility] Glomerular filtration rate/1.73 sq M pre dicted among non-blacks [Volume Rate/Area] in Serum or Plasma by Creatinine-based formula (MDRD) 17 mL/min/1.73m2 >60 L [facility] Glomerular filtration rate/1.73 sq M pre dicted among blacks [Volume Rate/Area] in Serum or Plasma by Creatinine-based formula (MDRD) 19 mL/min/1.73m2 >60 L [facility] ID Date Data Source [id number] 08/25/2020 04:21:00 PM EDT [facility] Renal Pathology ReportName: ARRON DUQUEMRN: [id number] Number: [id number] Date: 08/19/2020 00:00Received Date: 08/19/2020 14:18Physician(s): MEJIA STEINBERG MD SHAHBAZOV, RAUF X,[facility] To:SHANDA GONZALEZ MDSpecimen(s) ReceivedA: Transplant kidney biopsyClinical Fijluye68 year-old man had DCD kidney transplant on 09/23/2014 for ESRD due to HTN(pretransplant PRA 0%; KDPI 67%; CMV+/+). Maintenance immunosuppression isTacro/sirolimus/myfortic with FK level of 2-4 ng/ml and sirolimus of 6-8near the time of biopsy. Allograft biopsy is for increased serumcreatinine of 3.02 (baseline 1.8-2.9). There is proteinuria of 28.9mg.Donor specific antibodies (DSA) are negative. 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 - Approximately 41% global glomerulosclerosis (9/22 glomeruli in allspecimens) and 70% interstitial fibrosis with tubular atrophy (IFTA). - See comments.Comment:There is marked interstitial fibrosis with tubular atrophy (IFTA) andmarked interstitial inflammation, which is limited to the areas of IFTA.There is lymphocytic tubulitis, which is also limited to areas of IFTA.There is positive staining for BK Polyomavirus in rare tubules (~9%).These findings are consistent with BK polyomavirus nephropathy (PVN class2).Preliminary findings were communicated to the [facility] Transplant team at3:00 pm on 08-20-2020.The case was discussed at the [facility] High RiskTransplant Meeting on 10:00 am on 08-21-2020. Additional information ofpositi ve SV40 immuohistochemical stain [facility] 4:00 pm on 08-25-2020. Electronically Signed By Wilson Ornelas MD, PhD, Attending Pathologist08/25/2020 16:21:55Gross DescriptionNeedle biopsy cores are received in formalin fixative labeled with thepatient's name "Arron Duque". The formalin tissue consists of two coresmeasuring 0.9 cm and 1.2 cm long all of which is embedded in paraffin.Microscopic DescriptionLIGHT MICROSCOPY: Paraffin embedded tissue sections were stained with Hematoxylin & Eosin,Periodic Acid Moriah (PAS), Rosalinda Trichrome, and Xie' silver and wereexamined by light microscopy. Immunohistochemical (IHC) stains for C4d andSV40 large T antigen were also performed and examined by light microscopy.The specimen consists of needle biopsy cores of renal cortex. Glomerular LesionsUp to 22 glomeruli are represented in paraffin.Approximately 9 glomeruli are global sclerotic and no glomeruli havesegmental sclerosis Glomerulitis is not present. No double contour remodeling of peripheral capillary loops by PAS orsilver stains.Tubulointerstitial LesionsThere is marked tubular atrophy and interstitial fibrosis (~70% ofcortical area by trichrome stain). There is marked chronic interstitial inflammation (aggregates ofmononuclear inflammatory cells with few plasma cells and eosinophils inareas of scarring).The non-atrophic tubulointerstitium has no fibrosis and no inflammation.Non-atrophic proximal tubules are mild ectatic and have intact brushborders.Tubulitis is not present in the non-atrophic tubulointerstitium. No viral nuclear and cytological atypia.Vascular LesionsTwo small interlobular arteries are present with moderate intimalthickening.No vasculitis is not present.Peritubular capillaritis is not present.Arterioles show mild hyaline sclerosis.ImmunohistochemistryThe C4d stain is performed with appropriate control. There is nodiagnostic linear C4d staining in the peritubular capillaries.The SV40 stain for BK Polyomavirus is performed with appropriate control.There is focal (~ 9%) positive nuclear staining of tubular epithelialcells for SV40 large T antigen. Alpha-numeric notations in the table below refers to the [place] lesiongrading system as recommended and defined in the summary of the 2019 Banffconference in the [employer] Transplantation 2020 (DOI:10.1111/ajt.45321). PAS & Xie' silver stains were used to score t, g,ptc, ct, cg and t-IFTA, Rosalinda trichrome stain to score ci. IHC stainswere used to score c4d and pvl. ND = not done. NA = not applicable.Acute Banff scores Chronic Banff scores Acute & chronic Banff scores Inflammation (i0)in non-scarred cortex Interstitial fibrosis (ci3) Total corticalinflammation (ti2) Tubulitis (t0) in non-scarred cortex Tubular atrophy(ct3) Inflammation in scarred cortex (idIFTA-3) Vasculitis (v0) Arterial intimal fibrosis (cv2) Tubulitis in scarred cortex (tdIFTA-2) Glomerulitis (g0) Chronic glomerulopathy (cg0) Intrarenal polyomavirusload (pvl-2) Peritubular capillaritis (ptc0) Linear C4d in peritubular capillaries (c4d0) Peritubular capillary basement membrane multilayering by electron microscopy (ptcml -ND) This report may include one or more im munohistochemical stain results thatuse analyte specific reagents. All positive and negative controls havebeen reviewed by the attending pathologist and are satisfactory. The testswere developed and their performance characteristics determined by [facility] Pathology department. They have not been cleared or approved by the USFood and Drug Administration. The FDA has determined that such clearanceor approval is not necessary. Name Value Range Interpretation Code Description Data Swetha rce(s) Supporting Document(s) ID Date Data Source [id number] 08/05/2020 09:10:21 AM [facility] US RENAL TRANSPLANT [id number] RESULTInt erpreted by:JORDAN OwusuROCEDURE INFORMATION: Exam: US Transplanted Kidney Including Duplex Doppler Exam date and time: 07/31/2020 1:22 PM Age: 64 years old Clinical indication: Other specified abnormal findings of blood chemistry; Encounter for aftercare following other organ transplant; Other ocean transportation intermediary (current) drug therapy; Kidney transplant status; Kidney transplant status; Screening exam; Other: Elevated serum creatinine TECHNIQUE: Imaging protocol: US of the transplanted kidney with real time and molina scale was performed with image documentation. Duplex ultrasound scan of the arterial and venous flow of the abdomen with color Doppler flow and spectral waveform analysis was also performed. COMPARISON: US ABDOMEN LIMITED [id number] PORTABLE 03/01/2016 12:21 PM FINDINGS: Transplant kidney: The transplanted kidney in the right lower quadrant. No hydronephrosis. No solid mass or calculi. There is an extrarenal pelvis. Transplanted kidney measures 12.2 x 6.3 x 6.3 cm with a volume of 253 mL. Parenchyma measures 13 mm, previously 1.8 cm. . Graft renal artery: Patent. No significant stenosis. Renal artery peak systolic velocity 170 cm/s at the anastomosis. Interlobar/arcuate arteries: [Patent. No elevated resistive indices. Highest right midpole 0.73. Graft renal vein: Patent. Normal waveform.Bladder: Volume 212 mL. Unremarkable as visualized. IMPRESSION: 1. Normal duplex Doppler transplant kidney. 2. No hydronephrosis. 3. Transplant parenchyma measures 13 mm, previously 18 mm March 01, 2016. THIS DOCUMENT HAS BEEN ELECTRONICALLY SIGNED BY LAKISHA CONNORS MDThis document has been electronically signed by Lakisha Connors MD on 08/05/2020 9:10 AM Name Value Range Interpretation Code Description Data Swetha rce(s) Supporting Document(s) ID Date Data Source [id number] 07/21/2020 10:31:00 AM EDT [facility] Name Value Range Interpretation Code Description Data Swetha rce(s) Supporting Document(s) Laboratory test finding (navigational concept) Laboratory test result [facility] Magnesium [Moles/volume] in Serum or Plasma 1.7 mg/dL 1.8-2.4 [facility] ([facility]) Tacrolimus [Mass/volume] in Blood Laboratory test [facility]) Test sent to Reference lab on 07/21/20 . Specimen processed at [facility] only. No separate report to follow. ID Date Data Source [id number] 07/21/2020 10:31:00 AM EDT [facility]) Name Value Range Interpretation Code Description Data Swetha rce(s) Supporting Document(s) Blood Urea Nitrogen 62 mg/dL 7-18 [facility] ([facility]) Glucose, Fasting 97 mg/dL 70-100 [facility] ([facility]) Glomerular Filtration Rate 22.3 [facility] ([facility]) <content>Units are mL/min/1.73 m2</content>
<content></content>
<content>Chronic Kidney Disease Staging per NKF:</content>
<content></content>
<content>Stage I & II GFR >=60 Normal to Mildly Decreased</content>
<content>Stage III GFR 30- 59 Moderately Decreased</content>
<content>Stage IV GFR 15-29 Severely Decreased</content>
<content>Stage V GFR <15 Very Little GFR Left</content>
<content>ESRD GFR <15 on INFECTION PREVENTIONIST</content>
<content></content> Creatinine For GFR 3.02 mg/dL 0.70-1.30 [facility] ([facility]) Sodium Level 141 meq/L 136-145 [facility] ([facility]) Potassium Serum 4.4 meq/L 3.5-5.1 [facility] ([facility]) Chloride Level 116 meq/L 98-107 [facility] ([facility]) Carbon Dioxide Level 18 meq/L 21-32 [facility] ([facility]) Calcium Level 9.1 mg/dL 8.8-10.2 [facility] ([facility]) Phosphorus Level 3.9 mg/dL 2.5-4.9 [facility] ([facility]) Anion Gap 7 meq/L 8-16 [facility] ([place] [facility]) ID Date Data Source [id number] 07/21/2020 10:31:00 AM EDT [facility] ([facility]) Name Value Range Interpretation Code Description Data Swetha rce(s) Supporting Document(s) Alkaline Phosphatase 100 U/L 45-117 [facility] ([facility]) Alt/SGPT 31 U/L 12-78 [facility] ([place] [facility]) Ast/Sgot 12 U/L 7-37 [facility] ([place] [facility]) Bilirubin,Total 0.4 mg/dL 0.2-1.0 [facility] ([facility]) Bilirubin,Direct 0.2 mg/dL 0.0-0.2 [facility] ([facility]) Albumin 3.7 GM/DL 3.2-5.2 [facility] ([place] [facility]) Total Protein 7.2 GM/DL 6.4-8.2 [facility] ([facility]) Albumin/Globulin Ratio 1.1 [facility] ([facility]) ID Date Data Source [id number] 07/21/2020 10:31:00 AM EDT [facility] ([facility]) Name Value Range Interpretation Code Description Data Swetha rce(s) Supporting Document(s) Hemoglobin 10.8 g/dL 13.5-17.5 [facility] ([facility]) Red Blood Count 4.08 10 4.30-6.10 [facility] ([facility]) White Blood Count 3.0 10 4.0-10.0 [facility] ([facility]) Mean Corpuscular Volume 85.8 fl 80.0-96.0 [facility] ([facility]) Hematocrit 35.0 % 42.0-52.0 [facility] ([facility]) Mean Corpuscular HGB Conc 30.9 g/dL 32.0-36.5 [facility] NT ([facility]) Mean Corpuscular Hemoglobin 26.5 pg 27.0-33.0 [place] [facility] ([facility]) Red Cell Distribution Width 12.9 % 11.5-14.5 [place] [facility] ([facility]) Platelet Count, Automated 150 10 150-450 [facility] NT ([facility]) Neutrophils % 62.6 % 36.0-66.0 [facility] ([facility]) Wallace % 15.2 % 2.0-8.0 [facility] [facility] Eos % 1.0 % 0.0-3.0 [facility] [facility] Lymph % 20.2 % 24.0-44.0 [facility] ([place] [facility]) Immature Granulocyte % 0.7 % 0-3.0 [facility] ([facility]) Baso % 0.3 % 0.0-1.0 [facility] ([place] [facility]) Nucleated Red Blood Cell % 0.0 % 0-0 [facility] ([facility]) Neutrophils # 1.9 10 1.5-8.5 [facility] ([facility]) Lymph # 0.6 10 1.5-5.0 [facility] [facility] Wallace # 0.5 10 0.0-0.8 [facility] [facility] Eos # 0.0 10 0.0-0.5 [facility] [facility] Baso # 0.0 10 0.0-0.2 [facility] [facility] ID Date Data Source [id number] 07/21/2020 10:30:00 AM EDT [facility] ([facility]) Name Value Range Interpretation Code Description Data Swetha rce(s) Supporting Document(s) Color, Urine Laboratory test result [facility] NT ([facility]) Appearance, Urine Laboratory test result [facility] ([facility]) Specific Addison Urine Auto 1.009 1.002-1.035 [facility] ([facility]) PH,Urine 5.0 units 5.0-9.0 [facility] ([place] [facility]) Protein, Urine Auto Laboratory test result [facility] ([facility]) Glucose, Urine (Ua) Auto Laboratory test result [facility] ([facility]) Ketone, Urine Auto Laboratory test result [facility] ([facility]) Bilirubin, Urine Auto Laboratory test result [facility] ([facility]) Urobilinogen, Urine Auto 0.2 mg/dL 0.0-2.0 [facility] T ([facility]) Leukocyte Esterase, Urine Auto Laboratory test result [facility] ([facility]) Nitrite, Urine Auto Laboratory test result [facility] ([facility]) Blood, Urine Blood Laboratory test result [facility] ([facility]) WBC, Urine Auto 1 /HPF 0-3 [facility] ([facility]) RBC, Urine Auto 0 /HPF 0-3 [facility] ([facility]) Bacteria, Urine Auto Laboratory test result [facility] ([facility]) Hyaline Cast, Urine Auto 0 /LPF 0-1 [facility] T ([facility] [facility] Squamous Epithelial Cell Ur AU 0 /HPF 0-6 [facility] ([facility]) ID Date Data Source [id number] 07/21/2020 10:30:00 AM EDT [facility] ([facility]) Name Value Range Interpretation Code Description Data Swetha rce(s) Supporting Document(s) Creatinine [Mass/volume] in Urine 87.5 mg/dL [facility] ([facility]) Urine Source: URINE, CLEAN CATCH Bacteria identified in Urine by Culture Laboratory test result [facility] ([facility]) FULL REPORT IN LAB NOTES ([facility] and [facility] ). NO GROWTH Protein [Mass/volume] in Urine 28.9 mg/dL 0.0-12.0 [facility] ([facility]) Urine Source: URINE, CLEAN CATCH ID Date Data Source [id number] 07/23/2020 09:30:54 AM [facility] Name Value Range Interpretation Code Description Data Swetha rce(s) Supporting Document(s) Sirolimus [Mass/volume] in Blood 8.5 ng/mL 6.5-15.0 [facility] (NOTE)The stated therapeutic range is ba sed on a trough specimen, with the patient in the maintenance phase, and in combination with cyclosporine for a kidney transplant. ID Date Data Source [id number] 07/22/2020 09:23:58 AM [facility] Name Value Range Interpretation Code Description Data Swetha rce(s) Supporting Document(s) Tacrolimus [Mass/volume] in Blood 3.2 ng/mL [facility] Renal Transplant Target ValuesImmediate post-transplant: 10 - 15 ng/mL First 6 months: 6 - 15 ng/mL Greater than 6 months: 6 - 15 ng/mL ID Date Data Source [id number] 07/22/2020 09:04:00 AM [facility] Name Value Range Interpretation Code Description Data Swetha rce(s) Supporting Document(s) HLA Ab [Type] in Serum [facility] ID Date Data Source [id number] 02/13/2020 07:43:00 AM EST [facility] ([facility] Name Value Range Interpretation Code Description Data Swetha rce(s) Supporting Document(s) Cholesterol [Mass/volume] in Serum or Plasma 206 mg/dL 131-200 [facility]) Cholesterol in HDL [Mass/volume] in Serum or Plasma 44 mg/dL 35-60 [facility] ([facility]) Triglyceride [Mass/volume] in Serum or Plasma 298 mg/dL 30-150 [facility] ([facility]) Cholesterol in LDL [Mass/volume] in Serum or Plasma by calcu lation 102 CALC 50-159 [facility] ([facility]) ID Date Data Source [id number] 02/13/2020 07:43:00 AM EST [facility] ([facility]) Name Value Range Interpretation Code Description Data Swetha rce(s) Supporting Document(s) Glucose [Mass/volume] in Serum or Plasma 105 mg/dL 74-99 [facility] ([facility]) 100-125 mg/dL PRE-DIABETES/FASTING >126 mg/dL DIABETES/FASTING Urea nitrogen [Mass/volume] in Serum or Plasma 42 mg/dL 7-18 [facility] ([facility]) Sodium [Moles/volume] in Serum or Plasma 138 meq/L 136-145 [facility] ([facility]) Creatinine 2.2 mg/dL 0.6-1.3 [facility] ([facility] Potassium [Moles/volume] in Serum or Plasma 4.4 meq/L 3.5-5.1 [facility] ([facility]) Chloride [Moles/volume] in Serum or Plasma 105 meq/L 98-107 [facility] ([facility]) Carbon dioxide, total [Moles/volume] in Serum or Plasma 22 meq/L 21 -32 [facility] ([facility]) Calcium [Mass/volume] in Serum or Plasma 9.4 mg/dL 8.5-10.1 [facility] ([facility]) Alkaline phosphatase isoenzyme [Units/volume] in Serum or Pl asma 91 mg/dL 46-116 [facility] ([facility]) Total Bilirubin 0.8 mg/dL 0.2-1.0 [facility] ([facility]) Alanine aminotransferase [Enzymatic activity/volume] in Seru m or Plasma 55 U/L 12-78 [facility] ([facility]) Aspartate aminotransferase [Enzymatic activity/volume] in Serum or Plasma 24 U/L 15-37 [facility] ([facility] ) Albumin [Mass/volume] in Serum or Plasma 4.0 g/dL 3.4-5.0 [facility] ([facility]) Proteinase 3 Ab [Units/volume] in Serum 7.7 g/dL 6.4-8.2 [facility] [facility] A/G Ratio 1.08 CALC 1.00-1.90 [facility] Glomerular filtration rate/1.73 sq M pre dicted among non-blacks [Volume Rate/Area] in Serum or Plasma by Creatinine-based formula (MDRD) 30 [facility] Glomerular filtration rate/1.73 sq M pre dicted among blacks [Volume Rate/Area] in Serum or Plasma by Creatinine-based formula (MDRD) 37 mL/min [facility] ([place] [facility]) <content>CHRONIC KIDNEY DISEASE STAGING PER NKF</content>
<content></content>
<content>STAGE I & II GFR >= 60 NORMAL TO MILDLY DECREASED</content>
<content>STAGE III GFR 30-59 MODERATELY DECREASED</content>
<content>STAGE IV GFR 15-29 SEVERELY DECREASED</content>
<content>STAGE V GFR <15 VERY LITTLE GFR LEFT</content>
<content>ESRD GFR <15 ON INFECTION PREVENTIONIST</content>
<content></content> ID Date Data Source [id number] 02/13/2020 07:43:00 AM EST [facility] ([facility]) Name Value Range Interpretation Code Description Data Swetha rce(s) Supporting Document(s) Leukocytes [#/volume] in Blood by Automated count 3.7 x10*3/UL 4.1-10 .9 [facility] ([facility] [facility]) NOTE: RESULT VERIFIED. Erythrocytes [#/volume] in Blood by Automated count 4.95 x10*6/UL 4.2 0-6.30 [facility] ([facility] [facility]) Hemoglobin [Mass/volume] in Blood 13.4 g/dL 12.0-18.0 [facility] ([facility] [facility]) Hematocrit [Volume Fraction] of Blood by Automated count 39.9 % 3 7.0-51.0 [facility] ([facility] [facility]) MCH 27.1 pg 26.0-32.0 [facility] ([place] [facility]) MCV 80.6 fL 80.0-97.0 [facility] [facility]) MCHC 33.6 g/dL 31.0-38.0 [facility] [facility]) Erythrocyte distribution width [Ratio] by Automated count 12.8 % 11.6-13.7 [facility] ([facility]) Platelets [#/volume] in Blood by Automated count 134 x10*3/UL 140-440 [facility] ([facility]) MPV 8.9 FL 7.8-11.0 [facility] [facility]) Neut % 60.8 % 37.0-92.0 [facility] [facility]) Mid % 6.2 % 1.7-9.3 [facility] [facility]) Lymph % 33.0 % 10.0-58.5 [facility] [facility]) Mid # 0.2 x10*3/UL 0.1-0.6 [facility] ([facility]) Neut # 2.3 x10*3/UL 2.0-7.8 [facility] ([facility]) Lymph # 1.2 x10*3/UL 0.6-4.1 [facility] ([facility]) ID Date Data Source [id number] 10/15/2019 10:54:40 AM EDT [facility] Name Value Range Interpretation Code Description Data Swetha rce(s) Supporting Document(s) Progress Note [facility] HLGSJh3iGqHKWqYp64/POYovOHRqx1ThYWzfYWk7NBkjWDNeP7PqXGP0nO0uRWA2GRyCShMoHuMvJQT2 lbm [file] emKFL4CqUUyeNH1lPJj+O1YWCW/Byobi9s3DRJLzWfwimBr1foZst4a5X+generating plant superintendent+cZXSXBt5AOT+bbx3ZI HWdkE/ocQJg6EOO6S2ppf4WiXA8fvjk7Ng1wZU5Y94 S0olxo5DDhnjGi32PH9QkW+Bq+DhSw8tClDFNcQa8ZUmeoj3119XlA0pdGqLvnh1J7L22ks92H61ee8C rCyH/LZQib1TjQnI/eqjG5Q/Ad82PD6VXdYEhZb9d9DFRSLdX+F5Om405Tvn658b4+kia1/NWJ+mkwIv dqNXqS7mlobXkV8cQIqAm320muWRMQ0yKdRxrH3bKh JM2J6DAqjhDhgwgE7vbvW4fY9sM/Fj/RILsN16VT4CX82dpTLYKBBOtvxZa0MVaBUnrDICv4MCiHsoJ9 Fr8Grxk4bFfb4cMbfoIDYNM/7B7Bzrl4RnKBw6W+c3QTFPg/D54hT9zd2RHkKBz9AnY1KQ6Aro4LB0og y510lQPS0T/a2p7/8Jkn6faX/v17yEIVbz/z12364O [file] ICAgICAgICAgICAgICAgICAgICAgICAgICAgICAgIC PbIBDdJEWmOKCqSHEeLD1ILSPgWKFgGHGcXYPwVROmHHVnYFZiPKKjMKQgTQLwSSGrBYVbNIQvNAYiMG XlNUBpRTOrSCYxONXvGUFjNREiYDVcSIPgGTCbNWCdTUSkTWDbIKHmZLYsPPDzYKFcCVWtRSNeQS9RRA AgICAgICAgICAgICAgICAgICAgICAgICAgICAgICAg ICAgICAgICAgICAgICAgICAgICAgICAgICAgICAgICAgICAgICAgICAgICAgICAgICAgICAgICAgICAg XQZsNFVoJD8OVCEbXAXuHCDnPPLcFAEjMIHoCAPaXGZcYIVsQCHzBKWwIMQzAXYnIBXqURRgBMYwKZIg ICAgICAgICAgICAgICAgICAgICAgICAgICAgICAgIC ZzNREpEYPqCVDfUWDbHHTqLK8HSSCbXKReRSZsANByHMOnYUElYXXvNKHtARJzFQRwSRNcXKCyMYHvAI AgICAgICAgICAgICAgICAgICAgICAgICAgICAgICAgICAgICAgICAgICAgICAgICAgICAgICAgICAgIA 0KICAgICAgICAgICAgICAgICAgICAgICAgICAgICAg ICAgICAgICAgICAgICAgICAgICAgICAgICAgICAgICAgICAgICAgICAgICAgICAgICAgICAgICAgICAg IIMtARFeBITwEK1XNSMtACGnKDZrJREkZIHeDUHmZJFmQQCbZOXkKWOhVIOuVRVyTDVeRGTgFBYtFZVf ICAgICAgICAgICAgICAgICAgICAgICAgICAgICAgIC CbUUPnFNHsYKUcIAOePJZpFLMuTO4EQQZjDPWbYLAgBPHlQIKpPALeJMZqSKKcAQCvTYMyBDUfILKwDG AgICAgICAgICAgICAgICAgICAgICAgICAgICAgICAgICAgICAgICAgICAgICAgICAgICAgICAgICAgIC KgLN2MUMOaJOGsURYwMKEbVJPaXBJsINGyPQGjPNKi ICAgICAgICAgICAgICAgICAgICAgICAgICAgICAgICAgICAgICAgICAgICAgICAgICAgICAgICAgICAg SXJpRNSnWWYqHAAqAY8UCYIvSBMwHZJiBMPfJKItWQPzNVYeXEEmHFNkCJAsZPUaEYUvERUcFOUfHSZj ICAgICAgICAgICAgICAgICAgICAgICAgICAgICAgIC NtFMOjYWApXDPzINKzJWFwQHZbKUGjJH2RYY70dTTst1M3YIJeDZ6vtsy/Ak0DVSzoexRucGJqII3UEi TzTN8aru9JYtMzFE1ogx2VZOuZDbZdD3U4zXSlNYThVXSVKqPqH51dNCwqYb41BNyhJAPuUnVkSUb4Is 1VLwQxJ0otLZCsZbC7HXEhBcN6HMDvLbI1CYCeCqYx ANTkZVSpZBBuFVGBOV2VHzZuA0IuoJ91IVGVSn4+NRgvvpCpHvnADjW2JFIex0WkVUw7EI4FCUXwGzmz k7EhQpauBQNAUKlvQN5IFML9YBH3TAEoNa4XTGWvR551umNpUO9FHx0UQnFtIR2kka7ZLtjmHWYeJjbD Dbm9FYskEK8XtRHtQFdGyo7hwuCoegXCm6PojvSbxC XFbbdvYR4bCgLmz4rwjMLlBW5THEH7JAvxQH9wPVMhPFIpNoGgSUNFEM3NXIAnCTNonTVlEFWcLSUCVE 0AUMpkKCV5CFZendYtwDAyTYhhGC0BDDIfhnNwCttiOJPUHUh+Ef8GDV4ug7NyBQxoOFCkDQ0jsb2JTP yMDeTtE0Z6mUByP9T0CWulNk8YBWZvZMTxBfHnJEGW GUltBO8CZY0fbsW3XD3HmIRzDCMxKLIkmZIyNTd8T00htWTfHCeiKJ5XXWA+Kenneth+Fr0TEGRaWTQiQWMt ZzRaNPZUZhExM4EeC3JBm2OtY2NvCH45kDaydiCaFUeeDB2QGU5oXNQqSZTDDL7VzKIhfB5wnnPdHlEr IQLQReDdP85zpDGwGQFtFOU3CZPsYo2GANWyV5Ofyx XnnKllycSiDTPkRDTRXR9MIIezwxBpyDXatOlpWJ42bYjqSD1RUf6HQsAnWY4djx1ErQYjBt5TJQSoAS 9TVNRfFGSvBYMeZJX3MDUpBaUqWUiyFZVsAJZpHVU2EBCyDBKfSH3QQhBbZCJnYEo4OKsgLHOxBSEyjg 1TVQTnFAA4FPWlSgTwODXxVOWkMRlaYTEvKJKjAXF2 CUGaTLTxEU1YKpQuBHObHIZ1MHIlXETjAECnvo3KFNEnBVFkLRb1JYErGVWjMCXyKVzdTDBbFAA4XRUa SFAbLJHjEB9EKpUmWBAnUVs8XKFwMQPdVZBuei6BZJVyOODbFJg3GYZuRVCrLPJxKCpwQFXaABT8YKf5 JNTvOPJvKU0PFoBsVYSyDCXjFkAnGGJcVHWtay4ZAQ UpIHRyOnVuLJCyAZKgPOHdFWaoLLRqRIV4QjX5VRHwNBJvDE6HBiIkDJKmZYR1MXEjGOIfTTQngr3YPR JuUDBdLRY4IGBvJQNdGLDxMPgmRRVbATG2XOL3VRNrYPFgPH5XIwJlGCMhUUG4QGOlKGBdRAYbkn3VIR AjRYYxQgabDZJiIYPnPDCoBFgrFQGxTYU1UONwVPRa CKBiSY6HMgVcMAKfSNfgKNmiHLNwYDCubl8IXGEfCAL6EgeiPFDeZLKzYTEtITdkDPCcAXE4HOMdEYIj RFKfBQ5UXdEiJHDqUEf7URZzGQDiXFWorn8MTDPlRTV7HSMcXXRhYXRhDOLeXRqhIZHgAFC7Syh8POSg YSVuIZ2FKlZpPRIeZBOtJATvUHUgOOIbvo6XOZGqBZ Q2WSY9WSPzDUTxCCCkQWovBULzGZCuHxMeOMPpGEIhEY8PHgMkBWZvXXW8CiXuXDNwYZLpdx7OiZKowD sjey8BWVxOCh4SuNudESJfWLsqQm2reGBjJADmVUXRGz0CiiBlTXHtZZWDZXvmCVCyRQA5ISM2IjJ4LU D0JTZfNKt2HxLhFuPyUQCuOoPaIQBqQeZ8ZOkwRUkt HSF4XwyeO3HbGQitUNCxQrA3FNE0LKWlDMA+WD9tVHn+Gm2Wa5ZlkhI6qzGsVKo0CkSeEN9FBGLND9IC Cg== ID Date Data Source [id number] 09/30/2019 12:00:00 AM EDT [facility] Ernesto Mcguire Jr, MD Patient Name: ARRON DUQUE [id number] [facility] Date of : [birth year][address] [place] [id number] Date of Exam: 09/30/2019PH#: Fax: [phone] EXAM: CT THORAX WITHOUT CONTRASTCLINICAL INFORMATION: Followup asymmetric lingular opacity.64 slice low dose helical CT scanning was obtained throughout the thoraxwithout intravenous contrast along with sagittal and coronalreconstructions.All prior chest CT's have been reviewed, the latest of which is date03/18/2019.There is no significant change in the mediastinum or pulmonary iker. Thereis no mass or adenopathy. There is no change in the imaged upper abdomenor imaged osseous structures.Evaluation of the lung flaherty shows the slightly asymmetric linear opacityto be completely stable from 03/18/2019. No new abnormal nodules, masses,or opacities have developed.IMPRESSION:Stable CT findings as described above. Six month stability is reassuringsuggests mild fibrotic change, however, if clinically relevant, obtainadditional followup.Accredited by the [employer] in [place].JEAN Hoover/Ankur you for referring ARRON DUQUE to our office. Electronically Signed - JOSE LANTIGUA DO 09/30/19 17:00 Name Value Range Interpretation Code Description Data Swetha rce(s) Supporting Document(s) Procedure Social History Code Duration Value Status Description Data Source(s ) Alcohol intake 10/20/2020 12:00:00 AM EDT Current non-d hua of alcohol (finding) completed Current non-drinker of alcohol (finding) [facility] Tobacco use and exposure 10/20/2020 12:00:00 AM EDT Never used co mpleted Never used [facility] Smoking 10/20/2020 12:00:00 AM EDT Never smoker completed Never s [facility] Smoking 10/05/2020 12:00:00 AM EDT Never Smoker completed Never S [email or web address] ([facility]) Alcohol intake 10/15/2019 12:00:00 AM EDT Current non-d hua of alcohol (finding) completed Current non-drinker of alcohol (finding) [facility] Vital Signs ID Date Data Source UNK Name Value Range Interpretation Code Description Data Source(s) Systolic blood pressure 120 mm[Hg] 120 mm[Hg] [facility] Diastolic blood pressure 70 mm[Hg] 70 mm[Hg] [facility] Body temperature 98.3 [degF] 98.3 [degF] [facility] ([facility]) Body height 70 [in_i] 70 [in_i] [facility] ([facility]) 5'10" Body weight 201.12 [lb_av] 201.12 [lb_av] [facility] Body mass index (BMI) [Ratio] 28.9 kg/m2 28.9 k g/m2 [facility] ([facility]) [place] body weight 166 [lb_av] 166 [lb_av] [facility] Body weight 91.230 kg 91.230 kg [facility] ([facility]) Body surface area Derived from formula 2.09 m2 2.09 m2 [facility] ([facility]) Body weight 203.0 [lb_av] 203.0 [lb_av] W1 ([facility]) Body height 70 [in_i] 70 [in_i] eCW1 ([facility]) Body mass index (BMI) [Ratio] 29.12 kg/m2 29.12 kg/m2 [facility] ([facility]) Systolic blood pressure 130 mm[Hg] 130 mm[Hg] e CW1 ([facility]) Diastolic blood pressure 86 mm[Hg] 86 mm[Hg] eCW1 ([facility]) Systolic blood pressure 138 mm[Hg] 138 mm[Hg] [facility] Diastolic blood pressure 84 mm[Hg] 84 mm[Hg] [facility] Body height 70 [in_i] 70 [in_i] [facility] ([facility]) 5'10" Body weight 200.25 [lb_av] 200.25 [lb_av] [facility] Body mass index (BMI) [Ratio] 28.7 kg/m2 28.7 k g/m2 [facility] ([facility]) [place] body weight 166 [lb_av] 166 [lb_av] [facility] ([facility]) Body weight 90.833 kg 90.833 kg [facility] ([facility]) Body surface area Derived from formula 2.09 m2 2.09 m2 [facility] ([facility]) Systolic blood pressure 120 mm[Hg] 120 mm[Hg] [facility] ([facility]) Heart rate 64 /min 64 /min [facility] ([facility]) Body height 70 [in_i] 70 [in_i] [facility] ([facility]) 5'10" Body weight 202.00 [lb_av] 202.00 [lb_av] [facility] ([facility]) Body mass index (BMI) [Ratio] 29.0 kg/m2 29.0 k g/m2 [facility] ([facility]) Diastolic blood pressure 78 mm[Hg] 78 mm[Hg] [facility] ([facility]) Systolic blood pressure 124 mm[Hg] 124 mm[Hg] [facility] ([facility]) Body weight 214.00 [lb_av] 214.00 [lb_av] [facility] ([facility]) Diastolic blood pressure 72 mm[Hg] 72 mm[Hg] [facility] ([facility]) Body height 70 [in_i] 70 [in_i] [facility] ([facility]) 5'10" Body mass index (BMI) [Ratio] 30.7 kg/m2 30.7 k g/m2 [facility] ([facility]) ID Date Data Source [id number] 08/26/2020 03:26:21 PM [facility] Name Value Range Interpretation Code Description Data Source(s) WEIGHT RECORDED 198 lb 198 lb [facility] Body height Measured 70 in 70 in [facility] Patient Treatment Plan of Care Planned Activity Planned Date Details Description Data Source (s) Tacrolimus 1 MG Oral Capsule 08/24/2020 12:00:00 AM [facility] Sirolimus 1 MG Oral Tablet 04/28/2020 12:00:00 AM [facility] Atenolol 25 MG Oral Tablet 02/28/2020 12:00:00 AM [facility] Mycophenolic Acid 180 MG Delayed Release Oral Tablet 021 12:00:00 AM [facility] Tacrolimus 1 MG Oral Capsule 02/28/2020 12:00:00 AM [facility] Sirolimus 1 MG Oral Tablet 03/22/2019 12:00:00 AM [facility] Mycophenolic Acid 180 MG Delayed Release Oral Tablet 019 12:00:00 AM [facility] Losartan Potassium 25 MG Oral Tablet 09/16/2016 12:00:00 AM [facility] Amlodipine 10 MG Oral Tablet [facility]
[2020-11-25] MEDS ORDERED: LIDOCAINE 2% 100MG/5ML SDV (FOR ANES.) As Ordered ONE (11:51)
[2020-11-25] MEDS ORDERED: propofoL 200 MG/20 ML VIAL As Ordered ONE (11:51)
[2020-11-25] MEDS ORDERED: ONDANSETRON 4MG/2ML VIAL As Ordered ONE (11:51)
[2020-11-25] MEDS ORDERED: METOCLOPRAMIDE INJ 10MG/2ML VIAL (J2765 PER 1) As Ordered ONE (11:51)
[2020-11-25] MEDS ORDERED: dexameTHASONE 4 MG/ML 1ML VIAL (J1100 PER 1MG) As Ordered ONE (11:51)
[2020-11-25] MEDS ORDERED: ROCURONIUM BROMIDE 50 MG/5 ML VIAL As Ordered ONE (11:51)
[2020-11-25] MEDS ORDERED: fentaNYL 100 MCG/2 ML INJECTION (J3010) As Ordered ONE (11:52)
[2020-11-25] MEDS ORDERED: MIDAZOLAM INJ 2MG/2ML VIAL (J2250 PER 1MG) As Ordered ONE (11:52)
[2020-11-25] MEDS ORDERED: LIDOCAINE 1% SDV 30ML VIAL As Ordered ONE (12:05)
[2020-11-25] MEDS ORDERED: BUPIVACAINE LIPOSOME/PF 1.3% 20ML VIAL (13.3MG/ML)(EXPAREL)(C9290 PER1MG) As Ordered ONE (12:05)
[2020-11-25] MEDS ORDERED: BUPIVACAINE HCL 0.25% 30ML VIAL As Ordered ONE (12:05)
[2020-11-25] MEDS ORDERED: HEPARIN SOD (PORCINE) 5000UNITS/ML 1ML VIAL/SYRINGE As Ordered ONE (12:14)
[2020-11-25] MEDS ORDERED: ACETAMINOPHEN 1000MG 100ML IV BTL (OFIRMEV) (J0131 PER 10MG) As Ordered ONE (14:04)
[2020-11-25] MEDS ORDERED: SUGAMMADEX SODIUM 500 MG/5 ML VIAL (BRIDION) As Ordered ONE (14:04)
[2020-11-25] MEDS ORDERED: oxyCODONE 5MG TAB PO PRN (14:25)
[2020-11-25] MEDS ORDERED: HYDROMORPHONE HCL 0.5 MG/ 0.5 ML SYRINGE (J1170 PER 1) IV PRN (14:25)
[2020-11-25] MEDS ORDERED: fentaNYL 100 MCG/2 ML INJECTION (J3010) IV PRN (14:25)
[2020-11-25] MEDS ORDERED: LR 1,000 ML IV SCH (14:25)
[2020-11-25] MEDS ORDERED: ONDANSETRON 4MG/2ML VIAL IV PRN (14:25)
[2020-11-25] MEDS ORDERED: HYDR-3715 PO (14:27)
[2020-11-25] MEDS ORDERED: NORCO, ANEXSIA 5/325MG TABLET (HYDROcodone/ACETAMINOPHEN) PO PRN (15:15)
[2020-11-25] MEDS ORDERED: ACETAMINOPHEN TAB 650MG DOSE (2X325MG) PO PRN (15:15)
[2020-11-25 16:05] VITALS: BP 137/79
--- NOTE | 2020-11-26 21:24 | RO ---
OPERATIVE NOTE DATE OF OPERATION: 11/25/2020 PREOPERATIVE DIAGNOSES: 1. End-stage renal disease with failing renal transplant. 2. Umbilical hernia. POSTOPERATIVE DIAGNOSES: 1. End-stage renal disease with failing renal transplant. 2. Umbilical hernia. PROCEDURES PERFORMED: Implantation of continuous ambulatory peritoneal dialysis catheter. Repair of umbilical hernia. SURGEON: Christopher Weller MD REAL ESTATE LISTING CONSULTANT: None ANESTHESIA: General INDICATIONS FOR THE PROCEDURE: The patient is a 54-year-old man who had undergone a renal transplant some years ago and this is now failing and his renal failure is at end stage. He is now for placement of a continuous ambulatory peritoneal dialysis catheter. He was found also to have a small umbilical hernia and this will be repaired as well. OPERATIVE PROCEDURE: The patient was brought to the operating room and placed on the table in a supine position. He was placed under general endotracheal anesthesia. The patient's abdomen was prepped and draped in a sterile fashion. Initially an approximately 2-1/2 to 3 cm slightly curved incision was made around the left side of the umbilical dimple. The incision was deepened into the subcutaneous tissues using the cautery and hemostasis was ensured. The umbilical skin was elevated off of a small umbilical hernia. The hernia was opened and contained a small amount of fat which was reduced into the abdomen. There was an approximately 1 cm fascial defect. A second tiny frond of fat presented through a 1 or 2 mm defect above the larger defect and this was transected. The fascial defect was then closed in a slightly oblique fashion using interrupted simple sutures of 2-0 Ethibond. The umbilical skin was tacked down to the fascia with a single 3-0 Vicryl. Some 1/4% Marcaine was infiltrated about the incision. Hemostasis was ensured. The skin edges were approximated with several buried 3-0 Vicryl sutures. The skin edges were approximated with a running subcuticular 4-0 Vicryl. Attention was then turned to placement of the peritoneal dialysis catheter. This was placed in the left upper quadrant. A roughly 3 cm longitudinal paramedian incision was made. This was deepened through the subcutaneous tissues with the cautery. The anterior fascia of the rectus sheath was opened and the muscle fibers were spread. A small opening was created through the posterior sheath and peritoneum. A purse-string suture of 2-0 Vicryl was placed. The catheter was flushed with saline and paced over a long stylet. The catheter utilized was a 62 cm double-pledgeted pigtail peritoneal dialysis catheter. With the patient in a slight Trendelenburg position, the inferior edge of the peritoneal opening was elevated and the catheter was inserted, directed inferiorly along the inner aspect of the abdominal wall into the left lower quadrant. The catheter was then slipped off the end of the stylet. The purse-string suture was tied down about the catheter and then tied around the inner pledget to prevent retraction of the catheter. The rectus muscle fibers were allowed to fall together over the pledget and the anterior rectus sheath was closed with a running suture of 1-0 Vicryl. The catheter was tunneled through the subcutaneous tissues to exit through a small stab wound slightly lower and lateral in the abdominal wall. The infusion hub was attached to the catheter. The patient was tilted to a slight reverse Trendelenburg position. A liter of normal saline was infused through the catheter while the subcutaneous tissues and skin were closed with 3-0 Chromic and 4-0 Vicryl. The infusion bag was then dropped to the floor and approximately 500 mL of the liter returned without any blood evident. The patient was returned to a flat position. The catheter was filled with 1 mL of 5000 units per mL heparin and approximately 1.4 mL of sterile saline and the catheter was then plugged. A small clamp was applied to the catheter. The site was dressed with a CHG OpSite. Steri-Strips were applied to the two small incisions and a bandage was applied. The patient tolerated the procedure well without apparent complication. He was awakened in the operating room, extubated and moved to the recovery room in stable condition. JERARDO
== END 2020-11-25 16:33 | disposition home or self-care (01) ==
LOC: M SDC 10:03
PROVIDERS: ATTEND Surgery
DX: N17.9 Acute kidney failure, unspecified (principal); T86.12 Kidney transplant failure; Y83.0 Surgical operation with transplant of whole organ as the cause of abnormal reaction of the patient, or of later complication, without mention of misadventure at the time of the procedure; N18.6 End stage renal disease; K42.9 Umbilical hernia without obstruction or gangrene; I12.0 Hypertensive chronic kidney disease with stage 5 chronic kidney disease or end stage renal disease; E78.00 Pure hypercholesterolemia, unspecified; D64.9 Anemia, unspecified; Z79.899 Other long term (current) drug therapy
CPT/HCPCS: 36415; 49421; 49585; 84132; J0131; J0690; J1100; J1644; J2250; J2405; J2765; J3010

== ENCOUNTER → 2020-12-24 | Outpatient (REF) | payer MEDICARE, OTHER ==
[~2020-12-24] MED LIST changes: +HYDR-3715 PO; -LIDOCAINE 1% MDV 20ML VIAL SQ PRN; -LR 1,000 ML IV ONE; -ceFAZolin SOD 2 GM in IV 1 EA IV ONE
== END ==
LOC: M LAB REF 16:39
PROVIDERS: ATTEND Internal Medicine Nephrology
DX: Z94.0 Kidney transplant status (principal)

== ENCOUNTER → 2021-01-19 | Outpatient (REF) | payer MEDICARE, OTHER ==
[2021-01-23 09:09] LABS: BK VIRUS URINE PCR2 6.088 (.)
== END ==
LOC: M LAB REF 13:16
PROVIDERS: ATTEND Internal Medicine Nephrology
DX: Z94.0 Kidney transplant status (principal)

== ENCOUNTER → 2021-02-03 | Outpatient (CLI) | payer MEDICARE, OTHER | LOC: M PLALAB 11:47 | PROVIDERS: ATTEND Physician Assistant | DX: Z01.812 Encounter for preprocedural laboratory examination (principal) ==

== ENCOUNTER → 2021-02-24 | Outpatient (REF) | payer MEDICARE, OTHER | LOC: M LAB REF 16:45 | PROVIDERS: ATTEND Internal Medicine Nephrology | DX: Z94.0 Kidney transplant status (principal) ==

== ENCOUNTER → 2021-03-18 | Outpatient (CLI) | payer OTHER | LOC: M PLAIMG 10:45 | PROVIDERS: ATTEND Transplant Surgery | DX: Z01.818 Encounter for other preprocedural examination (principal) ==

== ENCOUNTER → 2021-04-21 | Outpatient (CLI) | payer OTHER | LOC: M WUC 12:58 | PROVIDERS: ATTEND Internal Medicine | DX: Z01.818 Encounter for other preprocedural examination (principal) ==

== ENCOUNTER → 2022-02-23 | Outpatient (CLI) | payer MEDICARE, OTHER ==
[2022-02-23 09:56] LABS: BASO % 0.6 % (0.0-1.0); EOS # 0.1 10^3/uL (0.0-0.5); HEMATOCRIT 37.2 % (42.0-52.0); HEMOGLOBIN 11.6 g/dl (13.5-17.5); LYMPH # 1.4 10^3/uL (1.5-5.0); LYMPH % 27.2 % (24.0-44.0); MEAN CORPUSCULAR HEMOGLOBIN 29.5 pg (27.0-33.0); MEAN CORPUSCULAR HGB CONC 31.2 g/dl (32.0-36.5); MEAN CORPUSCULAR VOLUME 94.7 fl (80.0-96.0); MONO # 0.4 10^3/uL (0.0-0.8); MONO % 6.9 % (2.0-8.0); NEUTROPHILS # 3.1 10^3/uL (1.5-8.5); NEUTROPHILS % 59.7 % (36.0-66.0); PLATELET COUNT, AUTOMATED 198 10^3/uL (150-450); RED BLOOD COUNT 3.93 10^6/uL (4.30-6.10); WHITE BLOOD COUNT 5.2 10^3/uL (4.0-10.0)
[2022-02-23 10:22] LABS: MAGNESIUM LEVEL 1.7 MG/DL (1.8-2.4)
[2022-02-23 10:23] LABS: ALBUMIN 3.7 G/DL (3.2-5.2); BILIRUBIN,DIRECT 0.2 MG/DL (<0.4); BILIRUBIN,TOTAL 0.5 MG/DL (0.3-1.2); CALCIUM LEVEL 9.2 MG/DL (8.3-10.6); CREATININE FOR GFR 1.31 MG/DL (0.70-1.30); GLOMERULAR FILTRATION RATE 58.1 (>49); PHOSPHORUS LEVEL 3.1 MG/DL (2.4-5.1); POTASSIUM SERUM 4.1 MMOL/L (3.5-5.1); TOTAL PROTEIN 7.1 G/DL (5.7-8.2)
[2022-02-23 10:47] LABS: APPEARANCE, URINE MANUAL CLEAR (CLEAR); COLOR, URINE MANUAL LT YELLOW (YELLOW)
[2022-02-23 10:48] LABS: SPECIFIC GRAVITY,URINE MANUAL 1.015 (1.002-1.035)
[2022-02-23 10:49] LABS: PROTEIN, URINE MANUAL 2+ mg/dL (NEGATIVE)
[2022-02-23 10:50] LABS: BILIRUBIN, URINE MANUAL NEGATIVE (NEGATIVE); BLOOD URINE MANUAL TRACE (NEGATIVE); GLUCOSE, URINE (UA) MANUAL NEGATIVE (NEGATIVE); KETONE, URINE MANUAL NEGATIVE (NEGATIVE); LEUKOCYTE ESTERASE, URINE MAN NEGATIVE (NEGATIVE); NITRITE, URINE MANUAL NEGATIVE (NEGATIVE); UROBILINOGEN, URINE MANUAL NORMAL (NORMAL)
[2022-02-23 11:00] LABS: BACTERIA, URINE SMALL AMOUNT; HYALINE CAST, URINE NONE SEEN /lpf (0-1); SQUAMOUS EPITHELIAL CELL URINE SMALL AMOUNT /hpf (SMALL AMT)
[2022-02-23 11:09] LABS: TOTAL PROTEIN,RANDOM URINE 104.1 MG/DL (0.0-14.0)
[2022-02-23 11:14] LABS: CREATININE,RANDOM URINE 98.1 MG/DL
== END ==
LOC: M WUC 08:27
PROVIDERS: ATTEND Nurse Practitioner Family
DX: Z94.0 Kidney transplant status (principal); N18.5 Chronic kidney disease, stage 5; D84.9 Immunodeficiency, unspecified

== ENCOUNTER → 2022-03-02 | Outpatient (CLI) | payer MEDICARE, OTHER ==
[2022-03-02 12:51] LABS: APPEARANCE, URINE MANUAL CLEAR (CLEAR); COLOR, URINE MANUAL YELLOW (YELLOW)
[2022-03-02 12:52] LABS: BILIRUBIN, URINE MANUAL NEGATIVE (NEGATIVE); BLOOD URINE MANUAL POSITIVE (NEGATIVE); GLUCOSE, URINE (UA) MANUAL TRACE(50 MG/DL) mg/dL (NEGATIVE); KETONE, URINE MANUAL NEGATIVE (NEGATIVE); LEUKOCYTE ESTERASE, URINE MAN NEGATIVE (NEGATIVE); NITRITE, URINE MANUAL NEGATIVE (NEGATIVE); PROTEIN, URINE MANUAL 1+ mg/dL (NEGATIVE); SPECIFIC GRAVITY,URINE MANUAL 1.015 (1.002-1.035); UROBILINOGEN, URINE MANUAL NORMAL (NORMAL)
[2022-03-02 13:03] LABS: BACTERIA, URINE NONE SEEN; HYALINE CAST, URINE NONE SEEN /lpf (0-1); SQUAMOUS EPITHELIAL CELL URINE NONE SEEN /hpf (SMALL AMT)
[2022-03-02 13:07] LABS: BASO % 0.5 % (0.0-1.0); EOS # 0.1 10^3/uL (0.0-0.5); EOS % 0.6 % (0.0-3.0); HEMATOCRIT 40.4 % (42.0-52.0); HEMOGLOBIN 12.4 g/dl (13.5-17.5); LYMPH # 1.6 10^3/uL (1.5-5.0); LYMPH % 18.5 % (24.0-44.0); MEAN CORPUSCULAR HEMOGLOBIN 29.5 pg (27.0-33.0); MEAN CORPUSCULAR HGB CONC 30.7 g/dl (32.0-36.5); MONO # 0.4 10^3/uL (0.0-0.8); MONO % 4.3 % (2.0-8.0); NEUTROPHILS # 6.4 10^3/uL (1.5-8.5); NEUTROPHILS % 74.1 % (36.0-66.0); PLATELET COUNT, AUTOMATED 195 10^3/uL (150-450); RED BLOOD COUNT 4.21 10^6/uL (4.30-6.10); WHITE BLOOD COUNT 8.6 10^3/uL (4.0-10.0)
[2022-03-02 13:09] LABS: TOTAL PROTEIN,RANDOM URINE 51.8 MG/DL (0.0-14.0)
[2022-03-02 13:15] LABS: ALBUMIN 3.8 G/DL (3.2-5.2); BILIRUBIN,DIRECT 0.2 MG/DL (<0.4); BILIRUBIN,TOTAL 0.5 MG/DL (0.3-1.2); CALCIUM LEVEL 9.7 MG/DL (8.3-10.6); CREATININE FOR GFR 1.41 MG/DL (0.70-1.30); GLOMERULAR FILTRATION RATE 53.4 (>49); PHOSPHORUS LEVEL 2.9 MG/DL (2.4-5.1); POTASSIUM SERUM 4.4 MMOL/L (3.5-5.1); TOTAL PROTEIN 7.3 G/DL (5.7-8.2)
[2022-03-02 13:19] LABS: MAGNESIUM LEVEL 1.5 MG/DL (1.8-2.4)
== END ==
LOC: M WUC 09:00
PROVIDERS: ATTEND Nurse Practitioner Family
DX: Z94.0 Kidney transplant status (principal); N18.5 Chronic kidney disease, stage 5; D84.9 Immunodeficiency, unspecified

== ENCOUNTER → 2022-03-04 | Outpatient (REF) | payer MEDICARE, OTHER ==
[2022-03-04 13:41] LABS: PERCENT SATURATION 41.5 % (19.7-50.0)
== END ==
LOC: M LAB REF 12:23
PROVIDERS: ATTEND Internal Medicine
DX: N18.9 Chronic kidney disease, unspecified (principal); D63.1 Anemia in chronic kidney disease

== ENCOUNTER → 2022-05-11 | Outpatient (REF) | payer MEDICARE, OTHER | LOC: M LAB REF 16:55 | PROVIDERS: ATTEND Internal Medicine Nephrology | DX: Z94.0 Kidney transplant status (principal) ==

== ENCOUNTER → 2022-08-16 | Outpatient (REF) | payer MEDICARE, OTHER | LOC: M LAB REF 17:23 | PROVIDERS: ATTEND Internal Medicine Nephrology | DX: Z94.0 Kidney transplant status (principal) ==

== ENCOUNTER → 2022-10-18 | Outpatient (CLI) | payer MEDICARE, OTHER | LOC: M WUC 14:30 | PROVIDERS: ATTEND Internal Medicine | DX: R05.9 Cough, unspecified (principal) ==

== ENCOUNTER → 2023-02-27 | Outpatient (REF) | payer MEDICARE, OTHER | LOC: M LAB REF 17:12 | PROVIDERS: ATTEND Internal Medicine Nephrology | DX: Z94.0 Kidney transplant status (principal); T86.19 Other complication of kidney transplant ==

== ENCOUNTER → 2023-04-24 | Outpatient (REF) | payer MEDICARE, OTHER ==
[~2023-04-24] MED LIST changes: -HYDR-3910; +HYDR25TA87
[2023-04-24 14:00] LABS: CREATININE,RANDOM URINE 43.7 MG/DL; TOTAL PROTEIN,RANDOM URINE < 6.0 MG/DL (0.0-14.0)
[2023-04-24 14:08] LABS: ALBUMIN 4.2 G/DL (3.2-5.2); BILIRUBIN,DIRECT 0.3 MG/DL (<0.4); BILIRUBIN,TOTAL 1.2 MG/DL (0.3-1.2); TOTAL PROTEIN 7.4 G/DL (5.7-8.2)
[2023-04-25 19:11] LABS: CMV QUANT DNA PCR (PLASMA) Negative (Negative)
== END ==
LOC: M LAB REF 13:04
PROVIDERS: ATTEND Nurse Practitioner Family
DX: Z94.0 Kidney transplant status (principal); N18.5 Chronic kidney disease, stage 5; Z79.899 Other long term (current) drug therapy

== ENCOUNTER → 2023-08-29 | Outpatient (REF) | payer MEDICARE, OTHER | LOC: M LAB REF 17:22 | PROVIDERS: ATTEND Internal Medicine Nephrology | DX: Z94.0 Kidney transplant status (principal) ==

== ENCOUNTER → 2023-09-11 | Outpatient (REF) | payer MEDICARE, OTHER | LOC: M LAB REF 12:43 | PROVIDERS: ATTEND Internal Medicine | DX: E79.0 Hyperuricemia without signs of inflammatory arthritis and tophaceous disease (principal) ==

== ENCOUNTER 2023-10-12 20:20 | Emergency (ER) | payer MEDICARE, OTHER ==
[~2023-10-12] VITALS: Ht 177.8 cm; Wt 98.0 kg
[2023-10-12 20:21] VITALS: TEMP 97.8
[2023-10-12] MEDS ORDERED: ceFAZolin SOD 2 GM in IV 1 EA IV ONE (22:55)
[2023-10-12] MEDS: NORCO, ANEXSIA 5/325MG TABLET (HYDROcodone/ACETAMINOPHEN) PO ONE (22:55)
[2023-10-12] MEDS: LIDOCAINE 2% MDV 20ML VIAL SC ONE (23:11)
[2023-10-12] MEDS: ceFAZolin SOD 1 GM in D5W MINI-BAG PLUS 50 ML IV ONE (23:16)
[2023-10-12] MEDS: ACETAMINOPHEN 500 MG TAB PO ONE (23:29)
[2023-10-13] MEDS ORDERED: CEPH500T PO (00:46)
[2023-10-13] MEDS ORDERED: HYDR-3713 PO (00:46)
[2023-10-13] MEDS ORDERED: BACITRACIN OINTMENT 30GM TUBE TOP PRN (01:15)
[2023-10-13] MEDS: NORCO 5/325MG TABLET (HOME DOSE PACK) PO ONE (01:31)
[2023-10-13 01:46] VITALS: BP 181/96; O2SAT 97
[2023-10-16] MEDS ORDERED: MAGN400T2 PO (11:07)
[2023-10-16] MEDS ORDERED: DOCU100C16 PO (11:07)
[2023-10-16] MEDS ORDERED: PRED5PAK2 PO (11:07)
[2023-10-16] MEDS ORDERED: CYCL25CA5 PO (11:07)
[2023-10-16] MEDS ORDERED: EZET10TA21 PO (11:07)
[2023-10-16] MEDS ORDERED: MYCO250C PO (11:07)
[2023-10-16] MEDS ORDERED: D 50CAP2 PO (11:07)
[2023-10-16] MEDS ORDERED: PRAV80TA2 PO (11:07)
[2023-10-16] MEDS ORDERED: CYCL100C5 PO (11:07)
== END 2023-10-13 01:52 | disposition home or self-care (01) ==
LOC: M ED 20:20
DX: S62.390B Other fracture of second metacarpal bone, right hand, initial encounter for open fracture (principal); S62.392B Other fracture of third metacarpal bone, right hand, initial encounter for open fracture; I10 Essential (primary) hypertension
CPT/HCPCS: 13132; 13133; 73140; 96365; 96366; 96372; 99284; J0690

== ENCOUNTER 2023-10-18 07:07 | Day surgery (SDC) | payer MEDICARE, OTHER ==
[~2023-10-18] VITALS: Ht 177.8 cm; Wt 95.3 kg
[~2023-10-18 07:07] MED LIST changes: +CEPH500T PO; +CYCL100C5 PO; +CYCL25CA5 PO; +D 50CAP2 PO; +DOCU100C16 PO; +EZET10TA21 PO; +HYDR-3713 PO; +MAGN400T2 PO; +MYCO250C PO; +PRAV80TA2 PO; +PRED5PAK2 PO
[2023-10-18] MEDS ORDERED: LR 1,000 ML IV SCH (07:15)
[2023-10-18] MEDS ORDERED: propofoL 200 MG/20 ML VIAL As Ordered ONE (08:13)
[2023-10-18] MEDS ORDERED: LIDOCAINE 2% 100MG/5ML SDV (FOR ANES.) As Ordered ONE (08:13)
[2023-10-18] MEDS ORDERED: fentaNYL 100 MCG/2 ML INJECTION As Ordered ONE (08:14)
[2023-10-18] MEDS ORDERED: MIDAZOLAM INJ 2MG/2ML VIAL As Ordered ONE (08:14)
[2023-10-18] MEDS ORDERED: BACITRACIN OINTMENT 30GM TUBE As Ordered ONE (08:14)
[2023-10-18] MEDS: ceFAZolin SOD 2 GM in IV 1 EA IV ONE (08:59)
[2023-10-18] MEDS ORDERED: ONDANSETRON 4MG 2ML VIAL As Ordered ONE (09:09)
[2023-10-18] MEDS ORDERED: propofoL 500 MG/50 ML VIAL As Ordered ONE (09:12)
[2023-10-18] MEDS ORDERED: ACETAMINOPHEN 1000MG 100ML IV BAG As Ordered ONE (09:16)
[2023-10-18] MEDS ORDERED: fentaNYL 100 MCG/2 ML INJECTION IV PRN (10:30)
[2023-10-18] MEDS ORDERED: ONDANSETRON 4MG 2ML VIAL IV PRN (10:30)
[2023-10-18] MEDS ORDERED: PERCOCET PO (10:35)
[2023-10-18] MEDS: oxyCODONE 5MG TAB PO PRN (11:05)
[2023-10-18 12:04] VITALS: BP 176/89; TEMP 97.6; O2SAT 95
== END 2023-10-18 12:23 | disposition home or self-care (01) ==
LOC: M SDC 07:07
PROVIDERS: ATTEND Orthopaedic Surgery Hand Surgery
DX: S62.610B Displaced fracture of proximal phalanx of right index finger, initial encounter for open fracture (principal); S66.320A Laceration of extensor muscle, fascia and tendon of right index finger at wrist and hand level, initial encounter; S62.612B Displaced fracture of proximal phalanx of right middle finger, initial encounter for open fracture; I10 Essential (primary) hypertension; E78.00 Pure hypercholesterolemia, unspecified; Z79.899 Other long term (current) drug therapy; M10.9 Gout, unspecified; Z94.0 Kidney transplant status; Z90.49 Acquired absence of other specified parts of digestive tract; X58.XXXA Exposure to other specified factors, initial encounter; Y93.9 Activity, unspecified; Y92.9 Unspecified place or not applicable
CPT/HCPCS: 11012; 26418; 26735; 76000; C1713; J0131; J0665; J0690; J1100; J2250; J2405; J3010

== ENCOUNTER → 2023-10-30 | Outpatient (CLI) | payer MEDICARE, OTHER ==
[~2023-10-30] MED LIST changes: +PERCOCET PO
== END ==
LOC: M SOG 11:06
PROVIDERS: ATTEND Physician Assistant
DX: Z48.89 Encounter for other specified surgical aftercare (principal); M79.642 Pain in left hand

== ENCOUNTER → 2023-11-13 | Outpatient (CLI) | payer MEDICARE, OTHER | LOC: M SOG 07:26 | PROVIDERS: ATTEND Physician Assistant | DX: M79.641 Pain in right hand (principal) ==

== ENCOUNTER → 2023-11-30 | Outpatient (CLI) | payer MEDICARE, OTHER | LOC: M SOG 13:42 | PROVIDERS: ATTEND Physician Assistant | DX: M79.641 Pain in right hand (principal); S62.620D Displaced fracture of middle phalanx of right index finger, subsequent encounter for fracture with routine healing; S62.622D Displaced fracture of middle phalanx of right middle finger, subsequent encounter for fracture with routine healing ==

== ENCOUNTER → 2023-12-05 | Outpatient (REF) | payer MEDICARE, OTHER | LOC: M LAB REF 11:37 | PROVIDERS: ATTEND Internal Medicine Nephrology | DX: T86.19 Other complication of kidney transplant (principal) ==

== ENCOUNTER → 2024-01-15 | Outpatient (CLI) | payer MEDICARE, OTHER | LOC: M SOG 07:50 | PROVIDERS: ATTEND Physician Assistant | DX: M79.641 Pain in right hand (principal) ==

== ENCOUNTER → 2024-02-29 | Outpatient (CLI) | payer MEDICARE, OTHER | LOC: M SOG 07:55 | PROVIDERS: ATTEND Physician Assistant | DX: S62.620D Displaced fracture of middle phalanx of right index finger, subsequent encounter for fracture with routine healing (principal); S62.652B Nondisplaced fracture of middle phalanx of right middle finger, initial encounter for open fracture ==

== ENCOUNTER → 2024-03-01 | Outpatient (REF) | payer MEDICARE, OTHER | LOC: M LAB REF 13:03 | PROVIDERS: ATTEND Internal Medicine Nephrology | DX: Z94.0 Kidney transplant status (principal) ==

== ENCOUNTER → 2024-03-15 | Outpatient (REF) | payer MEDICARE, OTHER | LOC: M LAB REF 12:52 | PROVIDERS: ATTEND Internal Medicine | DX: E79.0 Hyperuricemia without signs of inflammatory arthritis and tophaceous disease (principal) ==

== ENCOUNTER → 2024-10-22 | Outpatient (REF) | payer MEDICARE, OTHER ==
[~2024-10-22] MED LIST changes: -EZET10TA21 PO; +EZET10TA57 PO; -PRAV80TA2 PO; +PRAV80TA75 PO
== END ==
LOC: M LAB REF 17:39
PROVIDERS: ATTEND Internal Medicine Nephrology
DX: Z94.0 Kidney transplant status (principal)